=== PATIENT | male | born 1960 | race Caucasian/White ===

== ENCOUNTER → 2016-11-04 | Outpatient (CLI) | payer OTHER ==
[2016-11-04 09:22] LABS: Cholesterol 156 mg/dL (<200); HDL Cholesterol 54 mg/dL (40-60); Non-African American GFR(MDRD) >60 (>60 ml/min/1.73 sqM); Triglycerides 73 mg/dL (<150)
== END | disposition home or self-care (01) ==
LOC: LABWHC1 08:33
PROVIDERS: ATTEND Podiatrist Foot & Ankle Surgery
DX: M85.672 Other cyst of bone, left ankle and foot (principal); L03.90 Cellulitis, unspecified
CPT/HCPCS: 36415; 80061; 82565

== ENCOUNTER → 2016-11-14 | Outpatient (CLI) | payer OTHER ==
--- NOTE | 2016-11-17 12:53 | MR ---
MR left foot HISTORY: Cellulitis, fibrous dysplasia, abnormal x-ray Correlation to plain film dated 10/24/2016 from outside institution Multiplanar multisequence and postcontrast images obtained through the left foot following 16 cc Mult iHance IV Abnormality corresponds to cortical destruction at the first digit, there is associated increased sig nal on T2-weighted sequences throughout the distal phalanx of the first digit corresponding intermedi ate low signal in the T1-weighted images, uniform enhancement following contrast administration with the exception of a focal central low signal region which could represent small focal abscess or seque strum measuring 4 to 5 mm. IMPRESSION: Findings compatible with osteomyelitis distal first digit left foot as described.
== END | disposition home or self-care (01) ==
LOC: RADMRIMAIN 20:28
PROVIDERS: ATTEND Podiatrist Foot & Ankle Surgery
DX: L03.032 Cellulitis of left toe (principal); M85.01 Fibrous dysplasia (monostotic), shoulder; M85.672 Other cyst of bone, left ankle and foot
CPT/HCPCS: 73720; A9577

== ENCOUNTER 2017-12-19 20:37 | Emergency (ER) | payer OTHER ==
[2017-12-19 20:45] VITALS: BP 135/84; PULSE 84; RESP 18; TEMP 98.4
[2017-12-19] MEDS ORDERED: DIPH,PERTUS(ACELL)TETVAC-LF 0.5 ML VIAL IM ONE (20:48)
[2017-12-19] MEDS ORDERED: LIDOCAINE 1% INJ 10MG/ML (20 ML MDV) SQ ONE (21:16)
--- NOTE | 2017-12-19 21:32 | ED ---
General Adult HPI - General Chief complaint: Skin/Abscess/Foreign Body Stated complaint: Fishing hook in finger Time Seen by Provider: 12/19/17 20:55 Source: patient, RN notes reviewed Mode of arrival: ambulatory Limitations: no limitations - History of Present Illness Initial comments: This is a 56yo male with no PMH who presents today for CC of fish hook in left pinky finger. Pt states that he was helping a friend move when he was walking in the garage by his car dragging his hand along the side his left pinky finger was caught by a fishing hook that was on a pole hanging on car. Pt irrigated the wound, then immediately presented to the ER. He stated that his tetanus was not up to date. Pt denies decreased ROM, muscle weakness, numbness, tingling or parathesias of the left pinky finger, hand pain, previous MRSA infection or any other complaints. Patient denies any recent fever, chills, shortness of breath, chest pain, back pain, abdominal pain, nausea or vomiting, numbness or tingling , dysuria or hematuria, constipation or diarrhea, headaches or visual changes, or any other complaints. - Related Data Allergies Allergy/AdvReac Type Severity Reaction Status Date / Time codeine Allergy Unknown Verified 12/19/17 20:42 Penicillins Allergy Unknown Verified 12/19/17 20:42 Review of Systems ROS Statement: Those systems with pertinent positive or pertinent negative responses have been documented in the HPI. ROS Other: All systems not noted in ROS Statement are negative. Constitutional: Denies: fever, chills Eyes: Denies: eye pain ENT: Denies: ear pain Respiratory: Denies: cough, dyspnea Cardiovascular: Denies: chest pain, palpitations Endocrine: Denies: fatigue Gastrointestinal: Denies: abdominal pain, nausea, vomiting, diarrhea, constipation Genitourinary: Denies: urgency, dysuria, frequency Musculoskeletal: Denies: back pain Skin: Reports: as per HPI. Denies: rash Neurological: Denies: headache, weakness, numbness, paresthesias, confusion Past Medical History Past Medical History: No Reported History History of Any Multi-Drug Resistant Organisms: None Reported Past Surgical History: No Surgical Hx Reported Past Psychological History: No Psychological Hx Reported Smoking Status: Current every day smoker Past Alcohol Use History: None Reported Past Drug Use History: None Reported General Exam - General Exam Comments Initial Comments: General: The patient is awake and alert, in no distress, and does not appear acutely ill. Eye: Pupils are equal, round and reactive to light, extra-ocular movements are intact. No nystagmus. There is normal conjunctiva bilaterally. No signs of icterus. Ears, nose, mouth and throat: There are moist mucous membranes and no oral lesions. Neck: The neck is supple, there is no tenderness or JVD. Cardiovascular: There is a regular rate and rhythm. No murmur, rub or gallop is appreciated. Respiratory: Lungs are clear to auscultation, respirations are non-labored, breath sounds are equal. No wheezes, stridor, rales, or rhonchi. Musculoskeletal: Normal ROM, no tenderness of MCP, PIP and DIP joints of left pink finger with 5/5 strength with flexion and extension. Sensation intact of all 5 digits of the left hand. Pulses equal bilaterally 2+. Capillary refill < 2 seconds. Neurological: A&O x 3. CN II-XII intact, There are no obvious motor or sensory deficits. Coordination appears grossly intact. Speech is normal. Skin: Skin is warm and dry and no rashes. Red fish hook protruding from left pinky finger just distal to the PIP joint. Appears superficial in nature, can feel entire hook superfically beneath skin. Freya imbedded in skin. Psychiatric: Cooperative, appropriate mood & affect, normal judgment. Limitations: no limitations Course Vital Signs 12/19/17 20:42 Temperature 98.4 F Pulse Rate 84 Respiratory 18 Rate Blood Pressure 135/84 O2 Sat by Pulse 97 Oximetry Medical Decision Making - Medical Decision Making 56 male with no PMH who presents today for CC of fish hook in left pinky finger. Hook appeared superficial in the skin I was able to palpate along the entire length of the hook embedding into skin including the bard which was protruding but had hadnt piericed through skin. Pt was anethesized locally using 1% lidocaine around the fish hook/freya. Freya was pushed through without difficulty and cut with wire cutters. Hook was then pushed back through entrace. Wound was extensively irrigated and explored. XR of the left hand were obtained to check for any retain FB, returned (-). Given the superficial nature and (-) XR of the wound I have low suspicion for occult/open fracture and do not feel antibiotics are indicated at this time. Pt tetanus not UTD, pt was administered TDaP vaccination today. Bacitracin and bandage applied to wound. Case discussed prior to d/c with Dr. Mcdonald who agreed with impression and plan. Pt was educated on the signs and symptoms of infection and was told to return to ER if they arise. Pt d/c in stable condition. Disposition Clinical Impression: Fish hook injury of finger of left hand Disposition: HOME SELF-CARE Condition: Good Instructions: Puncture Wound (ED) Additional Instructions: Please use over the counter pain medication as needed, as discussed. Please follow-up with family doctor in the next 2 days for wound check. Please return to emergency room if the symptoms increase or worsen or for any other concerns. Is patient prescribed a controlled substance at d/c from ED?: No Referrals: Svetlana Montalvo MD [Primary Care Provider] - 1-2 days Time of Disposition: 21:50
--- NOTE | 2017-12-19 21:50 | XR ---
EXAMINATION TYPE: XR hand complete LT DATE OF EXAM: 12/19/2017 CLINICAL HISTORY: Left hand pain. Facial caught in the left fifth digit. TECHNIQUE: Frontal, lateral and oblique images of the left hand are obtained. COMPARISON: None. FINDINGS: There is no acute fracture/dislocation evident in the left hand. The joint spaces in the l eft hand appear within normal limits. The overlying soft tissue appears unremarkable. No radiopaque foreign body. Osseous mineralization is within normal limits. IMPRESSION: There is no acute fracture or dislocation in the left hand. No radiopaque foreign body.
== END 2017-12-19 21:58 | disposition home or self-care (01) ==
LOC: EC 20:37
DX: S60.457A Superficial foreign body of left little finger, initial encounter (principal); F17.200 Nicotine dependence, unspecified, uncomplicated; Z88.0 Allergy status to penicillin; Z88.5 Allergy status to narcotic agent; Z23 Encounter for immunization; W22.8XXA Striking against or struck by other objects, initial encounter; Y93.89 Activity, other specified
CPT/HCPCS: 99283 ×2; 90471 ×2; 73130; 90715; J2001

== ENCOUNTER 2021-10-28 10:49 | Emergency (ER) | payer OTHER ==
[2021-10-28 10:56] VITALS: TEMP 98
[2021-10-28] MEDS ORDERED: KETOROLAC 15 MG/ML 1 ML VIAL IM STA (11:21)
[2021-10-28 12:17] LABS: Potassium 4.9 mmol/L (3.5-5.1)
[2021-10-28 12:19] LABS: Calcium 9.5 mg/dL (8.4-10.2)
--- NOTE | 2021-10-28 13:10 | ED ---
Back Pain HPI - General Chief Complaint: Back Pain/Injury Stated Complaint: Weakness/left leg numbness/back pain Time Seen by Provider: 10/28/21 11:01 Source: patient, RN notes reviewed Limitations: no limitations - History of Present Illness Initial Comments: Patient is a pleasant 60-year-old male presents to the emergency room at the direction of his primary care provider with complaints of worsening chronic back pain. He reports that he injured his back back in April 2021 and since that time he had left lower extremity weakness and numbness along with slow muscle atrophy. Over the last month he has had an increase in radiculopathy down his right leg along with right-sided numbness. He denies any sudden numbness or tingling, bowel or bladder incontinence or any further trauma. He states that he is being worked up by Dr. Beavers outpatient with attempts to get a repeat MRI and computed tomography scan but is having difficulties with insurance. He is taking naproxen outpatient for pain control with suboptimal control. Prior to his back injury in April he denies any other past medical history, complaints or concerns. - Related Data Allergies Allergy/AdvReac Type Severity Reaction Status Date / Time codeine Allergy Unknown Verified 10/28/21 10:56 Penicillins Allergy Unknown Verified 10/28/21 10:56 Review of Systems ROS Statement: Those systems with pertinent positive or pertinent negative responses have been documented in the HPI. ROS Other: All systems not noted in ROS Statement are negative. Past Medical History Past Medical History: No Reported History History of Any Multi-Drug Resistant Organisms: None Reported Past Surgical History: No Surgical Hx Reported Past Psychological History: No Psychological Hx Reported Smoking Status: Current every day smoker Past Alcohol Use History: None Reported Past Drug Use History: Marijuana General Exam Limitations: no limitations General appearance: alert, in no apparent distress Head exam: Present: atraumatic, normocephalic, normal inspection Eye exam: Present: normal appearance, PERRL, EOMI. Absent: scleral icterus, conjunctival injection, periorbital swelling ENT exam: Present: normal exam (Before), mucous membranes moist Neck exam: Present: normal inspection. Absent: tenderness, meningismus, lymphadenopathy Respiratory exam: Present: normal lung sounds bilaterally. Absent: respiratory distress, wheezes, rales, rhonchi, stridor Cardiovascular Exam: Present: regular rate, normal rhythm, normal heart sounds. Absent: systolic murmur, diastolic murmur, rubs, gallop, clicks GI/Abdominal exam: Present: soft, normal bowel sounds. Absent: distended, tenderness, guarding, rebound, rigid Extremities exam: Absent: pedal edema, joint swelling Back exam: Present: tenderness, muscle spasm, paraspinal tenderness Neurological exam: Present: alert, oriented X3, CN II-XII intact, other (BLE weakness left worse right) Psychiatric exam: Present: normal affect, normal mood Skin exam: Present: warm, dry, intact, normal color. Absent: rash Course Vital Signs 10/28/21 10:52 Temperature 98.0 F Pulse Rate 63 Respiratory 20 Rate Blood Pressure 136/86 O2 Sat by Pulse 99 Oximetry Medical Decision Making - Medical Decision Making Pain improved with dose of IM Ketolac without side effects. Patient denies need for further pain medication. Computed tomography scan shows degenerative changes of the lumbar spine with multilevel degenerative disc disease, central spinal canal stenosis and neuroforaminal stenosis, most evident at L3 to L4 level. Outpatient surgical consult and MRI is recommended. He is alread established with an following with [facility]. - Lab Data Result diagrams: 10/28/21 11:34 Lab Results 10/28/21 Range/Units 11:34 Sodium 140 (137-145) mmol/L Potassium 4.9 (3.5-5.1) mmol/L Chloride 106 (98-107) mmol/L Carbon Dioxide 26 (22-30) mmol/L Anion Gap 8 mmol/L BUN 12 (9-20) mg/dL Creatinine 1.12 (0.66-1.25) mg/dL Est GFR (CKD-EPI)AfAm 84 (>60 ml/min/1.73 sqM) Est GFR (CKD-EPI)NonAf 72 (>60 ml/min/1.73 sqM) Glucose 102 H (74-99) mg/dL Calcium 9.5 (8.4-10.2) mg/dL - Radiology Data Radiology results: report reviewed, image reviewed Disposition Clinical Impression: Degeneration of intervertebral disc Disposition: HOME SELF-CARE Condition: Fair Instructions (If sedation given, give patient instructions): Acute Low Back Pain (ED), Degenerative Disc Disease (ED) Additional Instructions: Please return to the Emergency Department if symptoms worsen or any other concerns. Is patient prescribed a controlled substance at d/c from ED?: No Referrals: Svetlana Montalvo MD [Primary Care Provider] - 1-2 days Kelechi Beavers DO [Doctor of Osteopathic Medicine] - 1-2 days Time of Disposition: 14:32
--- NOTE | 2021-10-28 13:42 | CT ---
EXAMINATION TYPE: CT lumbar spine wo con DATE OF EXAM: 10/28/2021 1:11 PM COMPARISON: X-ray dated 08/09/2021 HISTORY: Chronic low back pain and bilateral leg weakness x6 months. CT DLP: 690.7 mGycm Automated exposure control for dose reduction was used. Technique: Unenhanced CT of the lumbar spine was performed. Bone and soft tissue window settings are submitted as well as coronal and sagittal reconstructions. FINDINGS: Chronic bilateral L5 pars interarticularis break with grade 1 anterolisthesis of L5 over S1. Mild lev oscoliosis of the lumbar spine with apex at L3 level. No definite acute vertebral body collapse or ac [place] displaced fracture. Degenerative changes of the lumbar spine with multilevel opposing endplate osteophytosis. Degenerated L3-4 disc. Subchondral sclerotic changes are seen at L3-4 level. T12-L1: Mild diffuse degenerative disc bulge without significant central spinal canal stenosis or ramesh roforaminal stenosis. L1-L2: Mild diffuse posterior disc bulge without significant central spinal canal stenosis or neurofo raminal stenosis. L2-L3: Diffuse posterior disc bulge with bilateral focal foraminal protrusions, larger on the right s mariia, causing no significant central spinal canal stenosis, mild left and moderate right neuroforamina l stenosis. L3-L4: Degenerated disc with vacuum phenomenon, diffuse posterior disc bulge with focal right prefora davin disc extrusion and caudal migration for about 18 mm, causing moderate central spinal canal sten osis and moderate to severe right neuroforaminal stenosis. Associated compression of the right L4 ner ve root in its lateral recess. L4-L5: Mild diffuse posterior disc bulge, without significant central spinal canal stenosis or neurof oraminal stenosis. L5-S1: Grade 1 anterolisthesis with diffuse posterior disc bulge, causing no significant central spin al canal stenosis and moderate to marked left neuroforaminal stenosis compressing the left L5 nerve r oot. Bilateral renal cysts, suboptimally assessed by this CT scan. Scattered arterial atherosclerotic calc ifications. Fecal loading of the visualized portion of the colon. No paraspinal lesion. IMPRESSION: Bilateral L5 pars break with grade 1 anterolisthesis of L5 over S1. Degenerative changes of the lumbar spine with multilevel DDD, central spinal canal stenosis and neuro foraminal stenosis, most evident at L3-4 level as detailed above. Recommend clinical correlation and spine surgery consultation. Further MRI assessment can be also considered. Other incidental findings as described above.
[2021-10-28 14:58] VITALS: BP 114/87; PULSE 57; RESP 14
== END 2021-10-28 14:58 | disposition home or self-care (01) ==
LOC: EC 10:49
DX: M51.36 Other intervertebral disc degeneration, lumbar region (principal); F17.200 Nicotine dependence, unspecified, uncomplicated; Z88.0 Allergy status to penicillin; Z88.5 Allergy status to narcotic agent
CPT/HCPCS: 36415; 80048; 72131; 96372; 99285; J1885

== ENCOUNTER → 2021-12-13 | Outpatient (CLI) | payer OTHER ==
--- NOTE | 2021-12-14 02:19 | MR ---
EXAMINATION TYPE: MR lumbar spine wo con DATE OF EXAM: 12/13/2021 COMPARISON: None HISTORY: Lower back pain, BLE radiculopathy. Multiplanar multiecho imaging of the lumbar spine with no contrast. There is a 2 mm anterior subluxation of L4 in relation L5. There is bilateral L5 spondylolysis. There is posterior disc herniation at L3-4 towards the right side. There is impingement on the lateral re cess. There is impingement on the right-sided neural foramen at L3-4 no compression fracture. No foca l bone destruction. There is no lumbar paraspinal mass. Sacroiliac joints are intact. No significant spinal stenosis. IMPRESSION: There is a moderate posterior right-sided L3-4 lumbar disc herniation with impingement on the neural foramen and lateral recess. No compression fracture. L5 spondylolysis. Moderate disc space narrowing at L3-4.
== END | disposition home or self-care (01) ==
LOC: RADMRIMAIN 18:52
PROVIDERS: ATTEND Orthopaedic Surgery
DX: M47.816 Spondylosis without myelopathy or radiculopathy, lumbar region (principal); M99.73 Connective tissue and disc stenosis of intervertebral foramina of lumbar region
CPT/HCPCS: 72148

== ENCOUNTER 2022-01-21 08:48 | Inpatient (IN) | payer OTHER ==
[2022-01-17 15:34] VITALS: BMI 22.6
--- NOTE | 2022-01-21 06:41 | P.HPOR ---
History of Present Illness H&P Date: 01/10/22 Chief Complaint: LE weakness, LBP [facility] History and Physical Date of :[birth year] Age: 60 year Height: 5'10" Weight: 165 lbs BMI: 23.67 kg/m2 Occupation: [employer] (currently off) VAS: 8 CHIEF COMPLAINT: Low back pain LE weakness Duration of current treatment regiment: >6 mo HISTORY : Xrays No new xrays taken in office Trauma or injury No Work-Related No Pain description aching, burning. Location posterior Activity Modification yes Hand Dominance right TREATMENTS COMPLETED: 6 weeks of PT completed? Month and Year of last PT date? -08/2021 Yes How many sessions? currently on his 2nd round >12 sessions Did it help? No, exacerbated his symptoms. Physician directed home exercise completed? Duration of HEP course: Daily for the last 3 months yes Patient has trialed the physician directed home exercise program for 3 months without relief of their symptoms. Medications yes List: Naproxen, Gabapentin both without relief. Patient is currently on ASA 81mg. Alternative interventions Chiropractic: No Massage therapy: No R.I.C.E: yes , daily ice without relief. Brace: yes, no help Injections No RFA: No SUBJECTIVE: Mr. Hoffman returns to the office for a pre-operative recheck of their low back pain. Patient reports no changes to his symptoms since the time of the last appointment, noting continued posterior thoracic and lumbar pain radiating into the left lower extremity. He describes the pain as a burning that becomes sharp with activity. In addition to the pain, the patient does also report numbness and tingling throughout the left lower extremity and buttock. overall his symptoms are made worse with any standing, bending, or twisting. Overall the patient has seen a progressive increase in symptoms since their onset. Due to this they notes that it is increasingly difficult for Mr. Hoffman to complete many of their daily tasks. Patient is having severe sleep disturbances as well due to their ongoing pain and associated symptoms. Regarding treatments, the patient has previously trialed Naproxen and Gabapentin both without any relief of his symptoms. Furthermore he has trialed physical therapy and home exercises as well both without any relief of his symptoms. Patient denies trialing any other modalities at this time. Otherwise the patient denies any f/c/sob/cp, no incision concerns, no bladder or bowel retention/incontinence, no perineal numbness/tingling, and ambulates with the use of a cane. HPI: Mr. Snow last presented on 12/20/2021 on follow up for his Lumbar spine and MRI which he was finally able to get. He is miserable. He states he is having a more difficulty time ambulating due to increased symptoms in his legs of weakness, difficulty with pushoff as well as increased numbness. It used to be just in his left leg but it is now in his right leg as well. He denies any bowel or bladder issues as of yet, and states no perineal numbness/tingling but he is getting numbness/tingling in his thighs now as well. He is using a cane for ambulation. His is very uncomfortable in the office and cannot sit for any period of time and cannot stand for any period of time due to the radicular pain in his leg, buttock and back. He is wearing a back brace, but this helps only minimally at this time. He has been done smoking for the past 4 weeks, no Nicoti ne at all which he is very proud of. Mr. Hoffman was last seen on 08/09/2021 regarding his lumbar spine. Patient reports pain ongoing for 3 months after slipping and falling on ice. Since this incident he has had increased symptoms that have progressively worsened in severity. Regarding his symptoms the patient reports posterior thoracic and lumbar pain radiating into the left lower extremity. He describes the pain as a burning that becomes sharp with activity. In addition to the pain, the patient does also report numbness and tingling throughout the left lower extremity and buttock. overall his symptoms are made worse with any standing, bending, or twisting. Due to this he has seen a significant loss in daily function and moderate sleep disturbances. As for treatments, the patient is currently going through his second round of PT which he has found no relief with. Additionally he has trialed a physician recommended home exercise program also without improvements. As for medications he reports taking Naproxen and gabapentin both without any discernable changes to his symptomology. Otherwise he denies any bladder or bowel retention/incontinence, no perineal numbness/tingling, and ambulates with the use of a cane. Today Mr. Hoffman presents to the office for a recheck of his low back and to review his CT scan obtained after the time of the last appointment. Since the time of the last appointment the patient reports that he has seen no improvements to his symptoms. Patient notes that his pain has continued to worsen and notes that his radicular pains are significantly impacting his ability to perform most ADL's. Of note the patient did recently present to the [facility] due to the severity of his pain. As for treatments the patient reports that he has seen no improvements to his symptoms and denies lasting relief from all modalities trialed thus far. Otherwise he denies any f/c/sob/cp, no bladder or bowel retention/incontinence, no perineal numbness/tingling, and ambulates independently. The patients' past social, medical, family, surgical history, as well as review of systems, have been reviewed. Please refer to the Neurosurgery History and Physical form that has been scanned in to our electronic medical record system. 16 points review of systems completed and as stated in HPI, all other systems reviewed are negative. Social History: Reviewed, see appropriate section of the chart for details. P3 Social History: Smoking: Former smoker quit 6 weeks prior P3 Smoking Amount: hx of 1/2 PPD Alcohol: none P3 Family History: Reviewed, see appropriate section of the chart for details. P2 Past Medical History: Reviewed, see appropriate section of the chart for details. [id number] Medications: Rx: aspirin 81 mg tablet,delayed release Ref: 0 Rx: atorvastatin 20 mg tablet Ref: 0 Rx: folic acid 1 mg tablet Ref: 0 Rx: gabapentin 300 mg capsule Ref: 0 Rx: naproxen 500 mg tablet Ref: 0 Rx: omeprazole 20 mg capsule,delayed release Ref: 0 PHYSICAL EXAMINATION:Exam repeated, changes noted below General: Awake, alert, appropriate for age, in no acute distress. HEENT: No unusual neck masses around region of lateral neck triangle, thyroid, supraclavicular groove Heart: Regular rate and rhythm, normal S1, S2 and no murmur/gallop. Lungs: Clear to auscultation bilaterally with no use of accessory muscles. Extremities: Skin warm and dry without acute lesions, coloration, temperature, skin intact, no tenderness or erythema Integument: Hairy patches: ABSENT Dorsal skin dimples: ABSENT Cafe au lait spots: ABSENT Surgical incisions: NONE Palpation: Please see Pain drawing on Intake sheet for further detail. Midline spinal tenderness: Yes, through lumbar region E6 Cervical Tenderness: No E6 Paralumbar tenderness: Yes E6 Parathoracic tenderness: No E6 Buttocks tenderness: No E6 Sacroiliac Tenderness: No POSTURAL and MUSCULO-SKELETAL EVALUATION: Coronal Balance: NEUTRAL Recumbent testing: Patient is able to lay flat on back Sagittal Balance: NEUTRAL Shoulder Profile: LEVEL Pelvic Girdle: LEVEL Neck ROM: UNRESTRICTED Lumbar ROM: RESTRICTED Shoulder ROM: Symmetrical Hip ROM: Symmetrical Knee ROM: Symmetrical Hands: Normal appearance, symmetrical Feet: Normal appearance, Symmetrical VASCULAR STATUS : LEFT RIGHT Wrist Pulses INTACT INTACT Pedal Pulses (Dors. pedis & post.tibialis) INTACT INTACT Color NORMAL NORMAL Edema Absent Absent NEUROLOGIC EXAMINATION: Mental Status:Awake and alert, fully oriented, with normal attention, concentration and memory, and fluent, appropriate speech. Cranial Nerves: I: Olfactory not tested. II: Visual acuity normal, no visual field deficit noted with confrontation. III,IV: Normal pupillary reflexes & intact extraocular movements without nystagmus. V,: Intact symmetrical facial sensation. VII: Intact symmetrical facial motor movement VIII: Hearing intact. IX,X: Intact gag, swallow, & normal voice. XI: Sternocleidomastoid, trapezius function intact. XII: Tongue midline with normal movements. L'hermitte's Sign: Negative / absent Spurling'Sign: Absent bilaterally. Cubital percussion test: Absent bilaterally. Mcnulty-Tinel sign - Carpal region: Absent bilaterally. Straight Leg Raising: Absent bilaterally. 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 Sensory system (0-4, N/T) Test type RU THU RL LL Joint-Position 2 2 2 2 Vibration 2 2 2 2 Pain & LT sense 2 2 2 2 Dermatomal Deficit: None None L3-4 L3-4, L5-S1 Gait and Functional Evaluation: Ambulatory aids: Cane Romberg's test: Intact bilaterally Toe heel walk / heel-toe walk intact while maintaining satisfactory balance? No Squatting/straightening w/o assistance to a min of 60 degree knee flexion? No Single leg stance:not intact on the left side Trendelenburg sign negative bilaterally Hand and finger dexterity intact bilaterally? yes Disdiadochokinesis examination negative bilaterally? yes RADIOGRAPHIC STUDIES: XRay taken on 08/09/21 of Lumbar Spine and pelvis This reviewed and demonstrates grade 1 spondylolisthesis L5-S1. This segment has mobility in flexion and extension of angular deformity. His fish mouthing at the L5-S1 disc space. There is facet arthrosis which is noted facet hypertrophy. There is foraminal stenosis related. There is disc height loss L3 4 L4 5 which is more moderate nature. There are sclerotic areas sclerotic endplate changes noted as well. Some coronal deformity centered around L4 5 and L5-S1 due to disc collapse. No acute fracture or dislocation noted no lesions noted AP pelvis demonstrates congruent level pelvis and fracture dislocation CT scan from the [facility] ER on10/28/2021 of LumbarSpine: This is reviewed and demonstrates b/l pars defects at L5 with Grade I spondylolisthesis related. There is scar formation around pars level along with elongation and facet arthrosis related this this. There is overlap of L4 IAP onto S1 SAP due to the deformity. There his disc height loss L5-S1 related with subchondral sclerosis. There is vacuum disc phenomenon at L3-L4. There is retr olisthesis of L4 on L5 although this is minor. There is stenosis bilateral foraminal as well as centrally related to the slip at L5-S1 MRI of Lumbar spine from 12/13/21: Images Reviewed in office with the patient. L1-2 Mild spondylotic changes, good disc height, no significant stenosis L2-3 Mild spondylotic changes, L3-4 Severe spondylosis with near complete disc collapse, Large HNP broad based with large paracentral portion out the left side causing severe central and left foraminal stenosis. There is also moderate right foraminal stenosis. Facet hypertrophy and ligamental hypertrophy also contribute to stenosis and spondylotic features. Boggy facets noted. L4-5 Moderate spondylosis noted with broad based disc bulge eccentric to right hand side causing moderate right foraminal stenosis. Mild central stenosis. Facet hypertrophy noted as well. L5-S1 Severe spondylosis with near complete disc collapse. There is b/l L5 pars defects causing mobile grade I spondylolisthesis of L5-S1 measuring 6 mm on this supine film which accentuates on F/E films to around 9-10 mm. Alignment: PI: NA LL: 44 deg Coronal alignment: Maintained Fracture: None Lesion: None IMPRESSION: It was my pleasure to have seen and examined Catalino. I reviewed the patient's clinical syndrome, physical findings, and imaging studies during the appointment today. It is my impression that the patient has a diagnosis of. 1. L5 spondylolysis with L5-S1 grade 1 spondylolisthesis 2. L3-4 XL HNP, with severe spondylosis and severe stenosis 3. b/l LE weakness, deteriorating 4. b/l LE radiculopathy with paresthesias, progressive .DX:Diagnosis: Spondylolysis, lumbar region : ICD10 = M43.06 / ICD9 = 738.4 / SNOMED = 28721007279543 .DX:Diagnosis: Lumbar spondylolisthesis : ICD10 = M43.16 / SNOMED = 849382542176108 .DX:Diagnosis: Intervertebral disc disorders w/ radiculopathy of lumbar region : ICD10 = M51.16 / ICD9 = 722.93 / SNOMED = 805629588622506 .DX:Diagnosis: Muscle weakness of lower extremity : ICD10 = G83.10 / ICD9 = 728.87 / SNOMED = 626737887 I outlined the natural course history without intervention and various intervent ional options. PLAN: Based on my findings I suggest the following course of action: Due to the nature of the patients progressive symptoms, neurological issues, weakness, radiculopathy and low back pain I am recommending surgical intervention in the form of the following: L3-S1 decompression and instrumented fusion Previously, We discussed different options for intervention including surgical and non surgical.And these were reiterated today. Due to the progressive nature of the patients symptoms I feel that surgery is the best option to alleviate his sx. He has two distinct problems that are both contributing to his current state. The severe stenosis, large HNP and severe spondylosis at L3-4, as well as the spondylosis with spondylolysis and stenosis at L4-S1. These would both be best addressed with decompression and fusion which would allow for complete neural decompression, realignment of the spine, buddhism of lordosis and disc height to allow for the best possible outcome for the patient. We discussed the risks and benefits as well as limitations of this at length and he is comfortable proceeding in this manner. -Cont with back brace -Limit BLT at this time, remain off work per PCP Follow- up: 2 weeks post-op -Review of surgical risks and benefits as well as an educational packet on the proposed surgical procedure. Risks: All surgical procedures come with inherent risks, including those related to positioning, anesthesia, intraoperative findings, and postoperative complications. It is important to understand that surgery does not come with any guarantee of a successful outcome as complications and adverse events are always possible. The patient was given a handout in office today discussing the surgical procedure and risks associated with the intervention, both of which were discussed with the patient. These risks include but are not limited to the following: ? Experiencing same, different or even worse symptoms in back, neck, arms, or legs compared to before surgery. ? Requiring further surgery or other forms of treatment presently or at some time in the future at same or other levels of the intended spine surgery. ? On an extreme but fortunately relatively rare basis severe complication such as blindness, stroke, heart attack, temporary and/or permanent nerve injury, paralysis, coma, or may occur, sometimes without known explanation. ? Surgical complications may include but are not limited to risk of infection, fluid accumulation in the surgical dissection site, including a seroma or hematoma, that requires additional surgery, wound drainage, bleeding, new numbness or weakness, vision changes/loss, spinal fluid leakage, non-healing and/or infected incision, headaches, difficulty or inability to swallow, hoarseness, hemopneumothorax, pneumothorax, impotence, retrograde ejaculation, vaginal dryness; injury to nerves, spinal cord, blood vessels, lymphatics or other vital organs (i.e., bowel injury, injury to the great vessels); hetero topic bone formation; complications related to the hardware such as screws, rods, cages including misplaced hardware, device failure, instrumentation at the wrong spine level, hardware fracture/breakage, or hardware loosening; vertebral failure of the spinal column above or below the newly placed hardware; retained surgical instrumentations or devices and the need for further surgery. ? Medical risks of the planned spine surgery include but are not limited to generalized Infections to the whole body or local areas outside of the surgical site (sepsis), heart attack, bleeding, anaphylaxis, meningitis, seizure, epilepsy, hearing loss, burn michael, laceration of the head or other areas of the body, bruising, hypersensitivity of the skin, bladder over distension; allergic reaction; shoulder injury related to positioning; fat, blood and air clots to other areas of the body like heart, lungs, brain; failure of internal organs such as lungs, kidneys, liver and excessive bleeding. If blood transfusions are necessary, note that transfusions may cause intolerance reactions such as anaphylaxis or other complex reactions. Despite best efforts, the results of spine surgery might not heal in terms of bone, soft tissues such as skin, fascia, ligaments, and joints. Additionally, in order to achieve best possible results, spine surgery may be carried out beyond the initially planned levels and involve decompression, fusion including insertion of hardware at levels other than the original intended area of surgical interest change some portions of the procedure in order to ensure the best possible outcomes. With spine surgery and spinal fusion, there are different off label uses of instrumentation (devices, implants and hardware) as well as biological substances (bone morphogenic proteins, demineralized bone matrix) as well as using extra bone from allograft sources (i.e. cadaver bone) or autograft (iliac crest bone, ribs, or the spine itself). The patient has been given information about these practices and their inherent risks and benefits. [facility] Physician Assistants are medically trained surgical providers who function in the outpatient, inpatient, and operating room setting under the direct supervision of the attending surgeon.They assist in the operating room with direct supervision of the attending surgeons. The patient has had a chance to review all the listed information, has been given print outs detailing this information, and has had all his/her questions answered to their satisfaction. It was my pleasure to have seen and examined Mr. Hoffman. In our visit today we have had a chance to go over my understanding of our patient's current condition, the natural course history without intervention and various interventional options. Questions were invited and answered, and the patient wishes to proceed as outlined above. I have seen and examined the patient for 25 minutes and we have spent more than 50% of the time in repeat and detailed counseling about the patient's condition, its natural course history with out and as much as can be predicted with surgery and re-review of various surgical treatment options. In conclusion,Mr. Hoffman and his spouse/partner requested we proceed with the above suggested surgery and are willing to accept risks and limitations of the suggested surgery as nature of the disease process and our best attempts at treatment for the condition. Thank you again for allowing us to be part of your patient's care. Please don't hesitate to contact me if you have any further questions. Signed and authenticated by: Kele[facility] [address] [place] [id number] Past Medical History Past Medical History: GERD/Reflux, Osteoarthritis (OA) Additional Past Medical History / Comment(s): "disk exploded on MRI", History of Any Multi-Drug Resistant Organisms: None Reported Past Surgical History: No Surgical Hx Reported Additional Past Surgical History / Comment(s): colonoscopy Past Anesthesia/Blood Transfusion Reactions: No Reported Reaction Smoking Status: Former smoker - Past Family History Brother(s) Family Medical History: Cancer Medications and Allergies Home Medications Medication Instructions Recorded Confirmed Type Aspirin [Adult Low Dose Aspirin EC] 81 mg PO DAILY 01/17/22 01/17/22 History Fluticasone Propionate 1 puff INHALATION BID PRN 01/17/22 01/17/22 History [Fluticasone Propionate Hfa 220 MCG (Inhaler)] Folic Acid 1 mg PO DAILY 01/17/22 01/17/22 History Gabapentin [Neurontin] 300 mg PO TID 01/17/22 01/17/22 History Naproxen [Naprosyn] 500 mg PO BID 01/17/22 01/17/22 History Omeprazole [PriLOSEC] 20 mg PO AC-BRKFST 01/17/22 01/17/22 History Allergies Allergy/AdvReac Type Severity Reaction Status Date / Time codeine Allergy Nausea & Verified 01/17/22 15:22 Vomiting Penicillins Allergy Unknown Verified 01/17/22 15:22 Childhood Physical Examination Osteopathic Statement: *. No significant issues noted on an osteopathic structural exam other than those noted in the History and Physical/Consult.
[~2022-01-21 08:48] MED LIST: ACETAMINOPHEN TAB 500 MG TAB PO PRN; GABAPENTIN 300 MG CAP PO PRN; MIDAZOLAM 2 MG/2 ML VIAL IV PRN; ONDANSETRON 4 MG/2 ML VIAL IVP PRN; TRANEXAMIC ACID IN NACL,ISO-OS 1,000 MG in SALINE 1 100ML.BAG IVPB PRN; fentaNYL (PF) 50 MCG/ML 2 ML AMP IV PRN
[2022-01-21] MEDS: LACTATED RINGERS 1,000 ML IV SCH (09:32)
--- NOTE | 2022-01-21 10:52 | P.PN ---
Progress Note - Text Progress Note Date: 01/21/22 History and Physical UPDATE I have seen and examined the patient and reviewed the history and physical. There appear to be no significant changes in the patient's current medical status as outlined in the current History and Physical.
[2022-01-21] MEDS ORDERED: SUCCINYLCHOLINE CHLORIDE 200 MG/10 ML VIAL IV ONE (11:38)
[2022-01-21] MEDS ORDERED: GLYCOPYRROLATE 0.2 MG/ML 2 ML VIAL ONE (11:38)
[2022-01-21] MEDS ORDERED: PROPOFOL 10 MG/ML 20 ML VIAL IV ONE (11:38)
[2022-01-21] MEDS ORDERED: ePHEDrine 50 MG/ML 1 ML VIAL ONE (11:38)
[2022-01-21] MEDS ORDERED: TRANEXAMIC ACID IN NACL,ISO-OS 1,000 MG/100 ML BAG ONE (11:38)
[2022-01-21] MEDS ORDERED: ONDANSETRON 4 MG/2 ML VIAL ONE (11:38)
[2022-01-21] MEDS ORDERED: PHENYLEPHRINE-0.9% NACL SYG 1,000 MCG/10 ML SYRINGE ONE (11:38)
[2022-01-21] MEDS ORDERED: ceFAZolin 1,000 MG VIAL ONE (11:38)
[2022-01-21] MEDS ORDERED: HYDROmorphone (PF) 1 MG/ML ONE (11:38)
[2022-01-21] MEDS ORDERED: ROCURONIUM 10 MG/ML (5 ML VIAL) IV ONE (11:38)
[2022-01-21] MEDS ORDERED: LIDOCAINE 2% INJ 20 MG/ML (2 ML VIAL) ONE (11:38)
[2022-01-21] MEDS ORDERED: NEOSTIGMINE 1 MG/ML 10 ML VIAL ONE (11:38)
[2022-01-21] MEDS ORDERED: fentaNYL (PF) 50 MCG/ML 2 ML AMP ONE (11:38)
[2022-01-21] MEDS ORDERED: LACTATED RINGERS 1,000 ML IV ONE ×5 (11:50→16:00)
[2022-01-21] MEDS ORDERED: VANCOMYCIN 1,000 MG VIAL MISCELLANE ONE (11:50)
[2022-01-21] MEDS ORDERED: THROMBIN (BOVINE) 5,000 UNIT VIAL TOPICAL ONE (11:50)
[2022-01-21] MEDS ORDERED: GELATIN SPONGE,ABSORB (LARGE) 1 EACH SPONGE TOPICAL ONE (11:50)
[2022-01-21] MEDS ORDERED: BUPIVACAIN-EPI 0.25%-1:200,000 30 ML VIAL SQ ONE (11:50)
[2022-01-21] MEDS ORDERED: ceFAZolin 3,000 MG in SODIUM CHLORIDE 0.9% IRRIGATIO 3,000 ML IRRIGATION ONE (12:42)
[2022-01-21] MEDS ORDERED: HYDROmorphone 1 MG/ML 1 ML SYRINGE IVP PRN (17:39)
[2022-01-21] MEDS ORDERED: NA PHOS,M-B/NA PHOS,DI-BA 133 ML ENEMA RECTAL PRN (17:39)
[2022-01-21] MEDS ORDERED: ONDANSETRON 4 MG/2 ML VIAL IVP PRN (17:39)
[2022-01-21] MEDS ORDERED: SENNOSIDES-DOCUSATE SODIUM 1 EACH TAB PO PRN (17:39)
[2022-01-21] MEDS ORDERED: HYDROmorphone 0.5 MG/0.5 ML SYRINGE IVP PRN (17:39)
[2022-01-21] MEDS ORDERED: bisacodyL 10 MG SUPP RECTAL PRN (17:39)
[2022-01-21] MEDS ORDERED: MAGNESIUM HYDROXIDE 2,400 MG/10 ML CUP PO PRN (17:39)
--- NOTE | 2022-01-21 19:11 | FL ---
Intraoperative/procedural fluoroscopic services were provided. Total fluoroscopy time is 59 seconds w ith a total of 6 submitted images to PACS. Please see the operative/procedural note for further detai ls.
[2022-01-21] MEDS ORDERED: ONDANSETRON 4 MG/2 ML VIAL IVP ONE (20:15)
[2022-01-21] MEDS: CYCLOBENZAPRINE 5 MG TAB PO SCH (20:50)
[2022-01-21] MEDS: GABAPENTIN 300 MG CAP PO SCH (20:50)
[2022-01-21] MEDS: ACETAMINOPHEN TAB 500 MG TAB PO SCH (23:28)
[2022-01-22] MEDS: LACTATED RINGERS 1,000 ML IV SCH (00:07)
[2022-01-22] MEDS: ACETAMINOPHEN TAB 500 MG TAB PO SCH ×4 (05:21→22:59)
[2022-01-22] MEDS: CYCLOBENZAPRINE 5 MG TAB PO SCH ×2 (08:00→21:15)
[2022-01-22] MEDS: GABAPENTIN 300 MG CAP PO SCH ×3 (08:00→21:15)
--- NOTE | 2022-01-22 08:46 | CT ---
EXAMINATION TYPE: CT lumbar spine wo con DATE OF EXAM: 01/22/2022 COMPARISON: 10/28/2021 HISTORY: s/p lumbar fusion CT DLP: 762.9 mGycm CONTRAST: TECHNIQUE: CT of the lumbar spine is performed on a spiral scan at 3 mm thick sections. Reconstructed images are performed in the coronal and sagittal planes. FINDINGS: There is been interval placement of L3-S1 pedicle screws. Disc spacer present L3-4 L4-5 and L5-S1. Scoliosis is present with the convexity to the left. Vertebral body alignment in sagittal almas ne appears normal. Note is made of a inferior pole right renal cyst. T12-L1: No focal disc herniation or significant disc bulge is evident. No spinal canal stenosis or neural foraminal stenosis is present. L1-L2: There is minimal disc bulging with intrathecal sac flattening. No AP spinal canal stenosis. L2-L3: Mild Broad-based disc bulge is present. No spinal canal stenosis. L3-4 through L5-S1. Beam hardening artifact causes limitation. Laminectomies been performed. Postsurg ical subcutaneous air is present. No obvious stenosis is evident. Drainage catheter is present. Prior L5 spondylolysis is not identified. IMPRESSION: 1. Postsurgical fixation L3-S1 with disc spacers present with postsurgical changes are present. 2. Mild disc bulging present at all 1 2 and L2-3 without stenosis.
--- NOTE | 2022-01-22 08:59 | P.PN ---
Subjective Progress Note Date: 01/22/22 Principal diagnosis: Lumbar spondylosis with stenosis Patient seen and examined at bedside. Patient is resting in bed and tolerating breakfast. Patient states his pain is managed on current regimen. He is looking forward to working with physical therapy and getting up into the chair today. Nascimento catheter may be discontinued this morning. He denies any numbness tingling to bilateral lower extremities. Surgical dressing is clean dry and intact, Hemovac present and patent. Patient denies any fevers/chills, nausea/vomiting, or chest pain. Objective - Vital Signs Vital signs: Vital Signs Temp 99.2 F 01/22/22 03:54 Pulse 82 01/22/22 03:54 Resp 16 01/22/22 03:54 BP 113/67 01/22/22 03:54 Pulse Ox 96 01/22/22 03:54 FiO2 Intake & Output 01/21/22 01/22/22 01/22/22 18:59 06:59 18:59 Intake Total 2651 500 Output Total 1250 2670 Balance 1401 -2170 Weight 70.9 kg Intake: IV 2651 500 Output: Drainage 400 Lower Back 400 Urine 700 2200 Uretheral (Nascimento) 2000 Estimated Blood Loss 550 70 Other: Voiding Method Indwelling Catheter Indwelling Catheter - Exam Physical Examination General: The patient is awake and alert, in no acute distress Skin: Skin is warm and dry with no obvious rashes or lesions. Hairy patches absent, no dorsal skin dimples, no cafe au lait spots. Surgical incision to the lumbar region. Dressing is clean dry and intact. Hemovac drain present and patent. Eye: Pupils are equal, round and reactive to light, extra-ocular movements are intact; there is normal conjunctiva bilaterally. Neck: The neck is supple, there is no tenderness and ROM intact. Cardiovascular: There is a regular rate and rhythm. No murmur, rub or gallop is appreciated. Respiratory: Lungs are clear to auscultation, respirations are non-labored, breath sounds are equal. Gastrointestinal: Soft, non-distended, non-tender abdomen . Back: There is no tenderness to palpation in the midline, paralumbar, parathoracic or buttocks region. There is no obvious deformity . Musculoskeletal: ROM limited secondary to pain and stiffness from surgical procedure. Shoulder abduction 5/5, elbow flexors 5/5, wrist dorsiflexors 5/5. finger abductor 5/5, boarding room fixer 5/5, hip flexor 4/5, knee flexor 4/5, ankle dorsiflexor 4/5, ankle plantarflexion 4/5 and extensor hallucis 4/5. Neurological: CN 2-12 intact. There are no obvious motor or sensory deficits. Movement and coordination equal and intact. Sensory exam to light touch intact C5-T1 and intact from L2-S1. Reflexes 2/4 in bilateral upper and lower extremities. Negative Hoffmans, babinski, and clonus signs. Psychiatric: Cooperative, appropriate mood & affect, normal judgment. Assessment and Plan Assessment: Postop day 1 L3 S1 decompression with posterior lateral and interbody fusion Plan: Plan: -Appreciate independent beauty consultant and team management. -Activity: Ambulate QID, OOB all meals, up and about, limit lifting bending twisting to less than 5 lbs. Use walker or cane if needed for stability. -Daily PT/OT, increase ambulation strength and balance. -Brace when up and about, not needed in bed or chair -Pain control: Adequate at this time -Meds: reviewed -GI ppx: senna, Miralax -DC nascimento when up and about, bedside commode if needed -DVT PPX: OK to restart Heparin tonight -Hygiene: Shower today. Maintain dressing clean and dry. Meticulous cleaning after BMs away from the incision site -Drains: Maintain for now. DC later today pending out put and PT -Encourage IS 10x/hr -Dispo: Anticipate discharge home within 2448 hours with homecare *I reviewed and discussed this case with my attending Dr. Beavers, whom has reviewed this chart and films and is in agreement with assessment and plan of care as outlined above. I have personally seen and examined the patient, performed the documentation and the assessment and plan as written. Number of minutes spent on the visit: 20m.
[2022-01-22 11:13] LABS: African American GFR (CKD) 86.6 (60.0-200.0); Anion Gap 8.9 mmol/L (10.00-18.00); BUN/Creat Ratio 10.46 Ratio (12.00-20.00); Basophils # (A) 0.02 X 10*3/uL (0.00-0.10); Basophils % (A) 0.1 %; Blood Urea Nitrogen 11.3 mg/dL (9.0-27.0); Calcium 9.1 mg/dL (8.7-10.3); Carbon Dioxide 24.5 mmol/L (20.0-27.5); Eosinophils # (A) 0.12 X 10*3/uL (0.04-0.35); Eosinophils % (A) 0.8 %; HCT 30.7 % (39.6-50.0); HGB 10.5 g/dL (13.0-17.0); Immature Grans, Automated 0.6 %; Lymphocytes # (A) 1.26 X 10*3/uL (0.90-5.00); Lymphocytes % (A) 8.2 %; MCH 32.3 pg (27.0-32.0); MCHC 34.2 g/dL (32.0-37.0); MCV 94.5 fL (80.0-97.0); Monocytes # (A) 1.08 X 10*3/uL (0.20-1.00); NRBC Per 100 WBC 0 /100 WBCS (0.0-0.0); Neutrophils # (A) 12.81 X 10*3/uL (1.80-7.70); Neutrophils % (A) 83.3 %; Non-African American GFR(CKD) 74.7 (60.0-200.0); Platelet Count 318 X 10*3/uL (140-440); Potassium 3.9 mmol/L (3.5-5.5); RBC 3.25 X 10*6/uL (4.40-5.60); RDW 13.9 % (11.5-14.5); WBC 15.38 X 10*3/uL (4.50-10.00)
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
--- NOTE | 2022-01-22 12:16 | P.OP ---
Date of Procedure: 01/21/22 Preoperative Diagnosis: 1. L3-S1 spondylosis severe, with severe stenosis 2. Neurogenic clauidcation 3. LE weakness 4. LE paresthesias. Postoperative Diagnosis: 1. L3-S1 spondylosis severe, with severe stenosis 2. Neurogenic clauidcation 3. LE weakness 4. LE paresthesias. Procedure(s) Performed: Posteior midline approach to lumbar spine 1. L3-4 posteriolateral and interbody fusion (59064) 2. L4-5 posteriolateral and interbody fusion (68444) 3. L5-S1 posteriolateral and interbody fusion (85123) 4. L3-4, L4-5 and L5-S1 extradural decompression with bilateral laminectomy, complete facetectomy and foraminotomy for decompression of nural elements due to severe stenosis and deformity. (59149, [id number]) 5. Intradiscal osteotomy L3-4 and L5-S1 for deformity correction (3 column osteotomy) (95583) 6. Segmental instrumentation L3-S1 (88942) 7. Insertion of biomechanical devices L3-4, L4-5 and L5-S1 ([id number]) 8. Use of Simplee Navigation for screw placement (50044) 9. Use of intraoperative neuromonitoring 10. Interpretation of intraoperative flouroscopic images <1 hr (26400) Implants: -Narayan everest screw and jamie system -x 2 crosslinks -Globus Sable Cages 8 deg lordotic 10mm x 6-12 (x1) and 7-16 (x2) -Local Autograft -Allograft -Bio4 Anesthesia: GETA Surgeon: Kelechi Beavers Production Crew Supervisor #1: Hoang Jaquez (Was present and assisted in all aspects of the case from positioning, dissection, hardware placement, grafting, closure and dressing placement) Estimated Blood Loss (ml): 550 IV fluids (ml): 3,500 Urine output (ml): 400 Pathology: none sent Condition: stable Disposition: PACU Indications for Procedure: 61 yo male presented to [facility] with c/o LE weakness that has been progressive over the past few months and has gotten worse over the past few weeks. He states back pain as well as LE paresthesias and radiculopathy. Additionally, he cannot walk further than about 50 feet without having severe symptoms. He had a CT which showed a large disc herniation as well as pars defect at L3-4 and L5-S1 respectively. He has progressively gotten worse and has tried PT, HEP, RX and OTC meds as well as injections in the past and none have helped his sx. Since they are getting worse he has elected for surgical treatment. We discussed at length risks and benefits as outlined in risk review. He is ready and willing to proceed with surgery. Description of Procedure: The patient was seen and examined in the preoperative area. All preoperative protocols were followed. Informed consent was obtained risks and benefits of the procedure were discussed at length. Risks including bleeding infection damage to the surrounding tissue and risk of reoperation were discussed with the patient. Risk of anesthesia up to and including was a discussed with the patient. These are outlined in the risk review. They were willing to accept these risks and all of the risks of surgery. The patient was given a weight- based dose of antibiotics in the form of 2 g Ancef along with opening and closing grams of TXA. The patient was seen and evaluated by the anesthesia team who deemed them fit for surgery. The site was marked, the patient was willing to proceed with the procedure. The patient was transferred to the operative suite by the Department of anesthesia. They were then drifted off to sleep by the department anesthesia and GETA was performed. The patient tolerated this well. [Pineda catheter was placed by nursing staff, atraumatically]. Once confirmation of lines and ventilation the patient was transferred to a [prone Galindo table very carefully]. All bony prominences including wrists, elbows, axilla, chest, hips, and thighs, and feet were padded very well. Special attention was paid to the genitalia and these were padded accordingly. SCDs were placed on bilateral lower extremities and were connected. Arms were well padded and placed [on arm boards up and out in the 90/90 position]. Once in position, again we confirmed good ventilation capabilities and that lines were running appropriately. The patient's lumbar spine was then exposed. 1010s were placed outlining the incision site. Standard alcohol was used to clean the incision site and allowed to dry. C-arm was used to biomark the patient and confirm level for incision which was marked with a skin marker. Operative briefing was performed with all teams and everyone in agreement to proceed. The patient was then prepped and draped in a normal sterile fashion. Timeout was then performed and all parties were in agreement with the procedure to be performed. Midline skin incision was made over the previously bio marked area and dissection taken down into the lumbar fascia was identifiedthis was then cleaned with a Mallory. Midline fasciotomy was performed and subperiosteal dissection was taken down over the L2 lamina through S1. This allowed us to identify the L3 through L4 region. [place] 4 was placed at the pars of L3 and a lateral fluoroscopic image confirmed our levels for surgery. We then dissected out over the transverse processes at each level and decorticated these transverse processes well here. He then placed a spine mask for the [place] navigation and the area and registered a 3-D intraoperative C-arm spin. Once this pin was complete we confirmed the accuracy with a pointer and it was accurate. We then proceeded with placing screws with [place] navigation at L3 through S1 using Simplee 3-D navigation a navigated bur was used to make a private pilot hole followed by a navigated all tapped followed by a navigated screw which was measured at the point of all tapped. This is repeated at each level. Once we completed screw placement AP and lateral and fluoroscopic imaging were taken and confirmed placement of the screws. All screws were then tested using neuro monitoring and all tested above 20 mA. We then thoroughly irrigated the wound. Retractors then replaced and we proceeded with decompression. Starting at L5-S1 who performed bilateral laminectomy complete facetectomy and foraminotomy using high-speed bur and Kerrison rongeur. The deformity in this area was listhesis anteriorly due to the patient's defect in his pars there is exuberant scar tissue over the pars of L5 and this caused a floating lamina which allowed for removal of this area. Once we removed from this area we then carefully mobilized the dura and the exiting nerve roots using [place] 4 meticulous hemostasis was performed. We then performed intradiscal osteotomy 3 column osteotomy using a Raptor osteotome using lateral fluoroscopic guidance this was passed into the anterior third of the vertebral body through the disc space both cranially and caudally to aid in deformity reduction. This loosened the disc space completely and we performed complete discectomy here. Sequential shaving was performed to remove further disc material and to ensure bare endplates for acceptance of bone graft. Down-biting curet was used to clean across midline and into the opposite side. We then passed Raptor across midline into the anterior one third of the vertebral body as well to aid in osteotomy as well as deformity correction. Once this was completed we had good bleeding endplates we then placed bone graft anterior within the disc space a combination of Silvia Allograft and Autograft we then sized and placed a Globus Sable Cage. Dura and nerve roots were protected the cage was impacted under lateral image guidance. We then expanded the cage to meet the endplates. This allowed for good height jewish, reduction of listhesis and decompression. The cage was stable. We then backfilled the cage with DBM mix with autograft. The quail farmer was removed the cage was inspected and it was stable. We then performed meticulous hemostasis. We then turned our attention to L4-5. Bilateral laminectomy, complete bilateral facetectomy and foraminotomy were performed for decompression due to stenosis. This allowed for access to the disc space. The nerve roots and dura were mobilized and the disc was identified. Hemostasis was achieved. The Raptor osteotome was passed into the disc space and sequential shaving performed until bare endplates were achieved. We used downbiting curette to scrape endplates across midline with image guidance and ensure complete discectomy. We then irrigated the disc space and placed Silvia allograft and auotgraft anterior in the disc space. We then sized and placed a Globus Sable Cage while protecting neural elements the cage was impacted into place using lateral image. Once in position it was expanded to meet the endplaplates. This allowed for good height maintinance, lordosis and decompression. We then backfilled the cage with DBM and autograft mix. Construction Quality Control Manager was removed cage was tested and was stable. We then performed hemostasis. Attention was then drawn to L3-4 where bilateral laminectomy b/l complete facetectomy and foraminotomy were performed for deformity correction as well as decompression. We then mobilized neural elements b/l and protected nerve roots. We then performed intradiscal osteotomy, 3 column osteotomy, for deformity correction and due to the severe collapse in this area. The Raptor was then passed into the anterior 1/3 of the vertebral body to mobilize and decompress. Complete discectomy was performed and the bony fragments removed. We then sequentially shaved the space until the desired height was reached and endplates were bare. We then sized for a Sable cage. Protecting neural elements, we placed graft anterior to the cage in the space. The cage was then impacted into place under lateral imaging and expanded to meet the endplates. This allowed for good reduction of height, jewish of alignment and decompression. The cage was then backfilled with DBM and autograft. Construction Quality Control Manager removed and cage tested and was stable. We then irrigated and performed hemostasis. We then selected rods appropriately. The rods were then seated in S1 and set screws placed. We then sequentially reduced the rods into L4 and L5 to complete the reduction of L5. This reduced well on lateral image. We then placed all set screws and final tightened them. We then selected and placed two crosslinks and final tightened them. The wound was then copiously irrigated with 3L abx saline followed by 6 L of NSS. Hemostasis was achieved. We then placed surgicel over the dura. We placed a mixture of Autograft, DBP and Allograft in the posteiolaeral gutters b/l and packed it intoplace and covered with surgicel. Final images were taken confirming good placemend of hardware, good reduction and decompression. 2 g vancomycin powder was placed into the wound. A deep drain was placed and layered closure ensued. #1 PDS was placed in the facia followed by 0 Vicryl. subcu was then closed with 0 Vicryl and 2-0 Vicryl skin was then closed with skin bassam as approximated very well he drain was sewn into position with a 0 PDS. It was then connected. The wound was then cleaned and dressed sterilely with an operative foam dressing 4 x 4 and Tegaderm. The patient was transferred back to their hospital bed atraumatically. Drain continued to hold suction and were in good position. Patient was then awakened and extubated by the department of anesthesia having tolerated the procedure very well with no complications. They were transferred to the postoperative care unit in stable condition.
[2022-01-23] MEDS: ACETAMINOPHEN TAB 500 MG TAB PO SCH ×4 (07:07→23:57)
[2022-01-23] MEDS: LACTATED RINGERS 1,000 ML IV SCH (07:07)
[2022-01-23] MEDS: GABAPENTIN 300 MG CAP PO SCH ×3 (08:05→21:38)
[2022-01-23] MEDS: CYCLOBENZAPRINE 5 MG TAB PO SCH ×2 (08:05→21:38)
[2022-01-23 11:11] LABS: Basophils # (A) 0.03 X 10*3/uL (0.00-0.10); Basophils % (A) 0.2 %; Eosinophils # (A) 0.16 X 10*3/uL (0.04-0.35); HGB 10.3 g/dL (13.0-17.0); Immature Grans, Automated 0.5 %; Lymphocytes # (A) 0.81 X 10*3/uL (0.90-5.00); Lymphocytes % (A) 4.9 %; MCHC 33.2 g/dL (32.0-37.0); MCV 96.3 fL (80.0-97.0); Mean Platelet Volume 9.5 fL (9.5-12.2); Monocytes # (A) 1.48 X 10*3/uL (0.20-1.00); NRBC Per 100 WBC 0 /100 WBCS (0.0-0.0); Neutrophils # (A) 13.89 X 10*3/uL (1.80-7.70); Neutrophils % (A) 84.4 %; Platelet Count 306 X 10*3/uL (140-440); RBC 3.22 X 10*6/uL (4.40-5.60); RDW 13.9 % (11.5-14.5); WBC 16.45 X 10*3/uL (4.50-10.00)
--- NOTE | 2022-01-23 11:47 | P.PN ---
Subjective Progress Note Date: 01/23/22 Principal diagnosis: Status post L3-S1 decompression with posterior lateral interbody fusion Patient was evaluated today at bedside, he is resting comfortably. Patient is very eager to be discharged home, he feels is doing very well. His drain continues to put out a large amount of bloody serous fingers drainage. Patient has been urinating with no difficulty. He is passing gas, he denies a bowel movement at this time. Currently has no headaches, lightheadedness, chest pain or shortness of breath Objective - Vital Signs Vital signs: Vital Signs Temp 98.4 F 01/23/22 01:46 Pulse 100 01/23/22 01:46 Resp 18 01/23/22 01:46 BP 108/68 01/23/22 01:46 Pulse Ox 95 01/23/22 01:46 FiO2 Intake & Output 01/22/22 01/23/22 01/23/22 18:59 06:59 18:59 Output Total 2125 110 Balance -2125 -110 Output: Drainage 275 110 Lower Back 275 110 Urine 1850 Other: Voiding Method Indwelling Catheter Toilet - Exam Gen: AOx3, NAD VSS stable at this time Integument: Dressing of the incision remains intact with no obvious drainage. Drainage is noted on the bandage is surrounding the drain site, moderate amount of serosanguineous drainage and drain Palpation: Mild tenderness to palpation in the midline paraspinal region of the lumbar spine ROM: Full range of motion in all major muscle groups of the bilateral upper and lower extremities, no obvious focal deficits appreciated Sensory Exam: Senory exam to light touch is intact C5-T1 Senosry exam to light touch is intact L2-S1 Motor: 4+/5 strength appreciated in the bilateral lower extremities with hip flexion, knee extension, knee flexion, plantar flexion, dorsiflexion, EHL, FHL Reflexes: 2/4 in all UE and LE Negative Sumit's bilaterally Negative Babinski bilaterally Negative clonus bilaterally - Labs CBC & Chem 7: 01/23/22 06:50 01/22/22 06:01 Labs: Abnormal Lab Results - Last 24 Hours (Table) 01/23/22 Range/Units 06:50 WBC 16.45 H (4.50-10.00) X 10*3/uL RBC 3.22 L (4.40-5.60) X 10*6/uL Hgb 10.3 L (13.0-17.0) g/dL Hct 31.0 L (39.6-50.0) % Immature Gran # 0.08 H (0.00-0.04) X 10*3/uL Neutrophils # 13.89 H (1.80-7.70) X 10*3/uL Lymphocytes # 0.81 L (0.90-5.00) X 10*3/uL Monocytes # 1.48 H (0.20-1.00) X 10*3/uL Assessment and Plan Assessment: Postoperative day #2 status post L3-S1 decompression with posterior lateral interbody fusion Leukocytosis Other medical comorbidities Plan: Pain control, continue with the oxycodone 5 mg as needed along with Tylenol 1000 mg every 6 hours. He'll also continue with Flexeril as needed along with the scheduled gabapentin DVT prophylaxis, SCDs and DANA hose Wound care, plan for dressing change prior to discharge. We will leave the drain in place for another 24 hours due to high output, hopeful removal and 01/24/2022 Continue with PT/OT LSO brace has been delivered, utilize when up and ambulating Encourage incentive spirometer Other medical specialty recommendation Discharge planning: Hopeful discharge home on 01/24/2022 Time with Patient: Less than 30
--- NOTE | 2022-01-23 19:53 | P.PN ---
Subjective This is a pleasant 61 yo male with past medical history of GERD and Osteoarthritis Was admitted for the management of his back pain , radiating to her legs with weakness Patient underwent lumbar 3-sacral 1 decompression surgery with posterior lateral and interbody fusion with nerve integrity monitoring. Today is postop day #1. Patient fully awake and oriented, he has some dry mouth but able to eat and drink, he denies chest pain or dyspnea, no abdominal pain or nausea vomiting. No diarrhea. No fever. He was able to walk in the room sit in the chair this morning also he told me he ate his breakfast with no difficulty. Vitas looks stable and patient is afebrile No labs from today. As per records: Patient is supposed to having back surgery with Dr. Beavers on 01/21/2022 2 L3-S1 posterior lateral and interbody fusion. Patient already referred to cardiology for systolic murmur and EKG changes. Color Corrector already evaluated the patient and found patient to have average risk to undergo surgical intervention. on reviewing documents documents, patient had a Lexiscan stress test on 01/17/2022 revealing ejection fraction more than 55% with no reversible ischemia 01/23/2022 Patient sitting comfortable in bed and chair, he is doing well, he states that his leg weakness and numbness have resolved significantly and he is very happy about it he feels much better, he thinks he can go home today however he still have large discharge from his drain at the surgical site, Vitals are stable. He still has leukocytosis Patient remains on cefazolin. Also is getting pain medication and his been looks controlled. Objective - Vital Signs Vital signs: Vital Signs Temp 98.4 F 01/23/22 01:46 Pulse 100 01/23/22 01:46 Resp 18 01/23/22 01:46 BP 108/68 01/23/22 01:46 Pulse Ox 95 01/23/22 01:46 FiO2 Intake & Output 01/22/22 01/23/22 01/23/22 18:59 06:59 18:59 Output Total 2125 110 Balance -5 -110 Output: Drainage 275 110 Lower Back 275 110 Urine 1850 Other: Voiding Method Indwelling Catheter Toilet - Exam GENERAL: The patient is alert and oriented x3, not in any acute distress. Well developed, well nourished. HEENT: Pupils are round and equally reacting to light. EOMI. No scleral icterus. No conjunctival pallor. Normocephalic, atraumatic. No pharyngeal erythema. No thyromegaly. CARDIOVASCULAR: S1 and S2 present. No murmurs, rubs, or gallops. PULMONARY: Chest is clear to auscultation, no wheezing or crackles. ABDOMEN: Soft, nontender, nondistended, normoactive bowel sounds. No palpable organomegaly. -MUSCULOSKELETAL: No joint swelling or deformity. Surgical back wound with dressing is in Place, rest of exam is deferred to surgery team EXTREMITIES: No cyanosis, clubbing, or pedal edema. NEUROLOGICAL: Gross neurological examination did not reveal any focal deficits. SKIN: No rashes. no petechiae. - Labs CBC & Chem 7: 01/23/22 06:50 01/22/22 06:01 Labs: Abnormal Lab Results - Last 24 Hours (Table) 01/23/22 Range/Units 06:50 WBC 16.45 H (4.50-10.00) X 10*3/uL RBC 3.22 L (4.40-5.60) X 10*6/uL Hgb 10.3 L (13.0-17.0) g/dL Hct 31.0 L (39.6-50.0) % Immature Gran # 0.08 H (0.00-0.04) X 10*3/uL Neutrophils # 13.89 H (1.80-7.70) X 10*3/uL Lymphocytes # 0.81 L (0.90-5.00) X 10*3/uL Monocytes # 1.48 H (0.20-1.00) X 10*3/uL Assessment and Plan Assessment: Spondylolysis and spondylolisthesis of the lumbar spine causing radicular lumbar pain and muscle weakness area status post L3-S1 decompression surgery with fusion GERD History of osteoarthritis COPD, not in active elevation History of nicotine dependence Plan: This is a pleasant 61 years old male presents with his back pain, We will defer the treatment of back pain to the surgery primary team Continue with PPI, Protonix 40 mg daily Patient currently is on antibiotics, keep monitoring labs continue with breathing treatment as needed DVT prophylaxis, deferred to orthopedic primary team Thank you for consulting us
[2022-01-24 03:08] VITALS: TEMP 98.1
[2022-01-24] MEDS: ACETAMINOPHEN TAB 500 MG TAB PO SCH ×2 (05:56→12:34)
[2022-01-24] MEDS: LACTATED RINGERS 1,000 ML IV SCH (05:57)
--- NOTE | 2022-01-24 08:38 | P.PN ---
Subjective Progress Note Date: 01/24/22 Principal diagnosis: Lumbar spondylosis with stenosis Patient seen and examined at bedside. Patient is resting in bed. He has been ambulating within room and hallway. His LSO brace was delivered yesterday. He reports that his will be bring him his cane today. Patient states his pain is managed on current regimen. He is wanting to go home today. Discussed that the drain still has significant output, we will reassess later this afternoon and may discontinue. No compression or suction to hemovac at this time. Surgical dressing is CDI. He denies any numbness tingling to bilateral lower extremities. Patient denies any fevers/chills, nausea/vomiting, or chest pain. Objective - Vital Signs Vital signs: Vital Signs Temp 98.1 F 01/24/22 00:49 Pulse 92 01/24/22 00:49 Resp 18 01/24/22 00:49 BP 116/79 01/24/22 00:49 Pulse Ox 99 01/24/22 00:49 FiO2 Intake & Output 01/23/22 01/24/22 01/24/22 18:59 06:59 18:59 Output Total 150 100 Balance -150 -100 Output: Drainage 150 100 Lower Back 150 100 Other: # Voids 3 - Exam Physical Examination General: The patient is awake and alert, in no acute distress Skin: Skin is warm and dry with no obvious rashes or lesions. Hairy patches absent, no dorsal skin dimples, no cafe au lait spots. Surgical incision to the lumbar region. Dressing is clean dry and intact. Hemovac drain present and patent. Eye: Pupils are equal, round and reactive to light, extra-ocular movements are intact; there is normal conjunctiva bilaterally. Neck: The neck is supple, there is no tenderness and ROM intact. Cardiovascular: There is a regular rate and rhythm. No murmur, rub or gallop is appreciated. Respiratory: Lungs are clear to auscultation, respirations are non-labored, breath sounds are equal. Gastrointestinal: Soft, non-distended, non-tender abdomen . Back: There is no tenderness to palpation in the midline, paralumbar, parathoracic or buttocks region. There is no obvious deformity . Musculoskeletal: ROM limited secondary to pain and stiffness from surgical procedure. Shoulder abduction 5/5, elbow flexors 5/5, wrist dorsiflexors 5/5. finger abductor 5/5, email marketing coordinator 5/5, hip flexor 4/5, knee flexor 4/5, ankle dorsiflexor 4/5, ankle plantarflexion 4/5 and extensor hallucis 4/5. Neurological: CN 2-12 intact. There are no obvious motor or sensory deficits. Movement and coordination equal and intact. Sensory exam to light touch intact C5-T1 and intact from L2-S1. Reflexes 2/4 in bilateral upper and lower extremities. Negative Hoffmans, babinski, and clonus signs. Psychiatric: Cooperative, appropriate mood & affect, normal judgment. - Labs CBC & Chem 7: 01/23/22 06:50 01/22/22 06:01 Labs: Abnormal Lab Results - Last 24 Hours (Table) 01/23/22 Range/Units 06:50 WBC 16.45 H (4.50-10.00) X 10*3/uL RBC 3.22 L (4.40-5.60) X 10*6/uL Hgb 10.3 L (13.0-17.0) g/dL Hct 31.0 L (39.6-50.0) % Immature Gran # 0.08 H (0.00-0.04) X 10*3/uL Neutrophils # 13.89 H (1.80-7.70) X 10*3/uL Lymphocytes # 0.81 L (0.90-5.00) X 10*3/uL Monocytes # 1.48 H (0.20-1.00) X 10*3/uL Assessment and Plan Assessment: Postop day 3 L3 S1 decompression with posterior lateral and interbody fusion Plan: Plan: -Appreciate oracle drm consultant and team management. -Activity: Ambulate QID, OOB all meals, up and about, limit lifting bending twisting to less than 5 lbs. Use walker or cane if needed for stability. -Daily PT/OT, increase ambulation strength and balance. -Brace when up and about, not needed in bed or chair -Pain control: Adequate at this time -Meds: reviewed -GI ppx: senna, Miralax -DC nascimento when up and about, bedside commode if needed -DVT PPX: heparin -Hygiene: Shower today. Maintain dressing clean and dry. Meticulous cleaning after BMs away from the incision site -Drains: Maintain for now to gravity, no suction or compression. May discontinue later today. -Encourage IS 10x/hr -Dispo: Anticipate discharge home today with homecare *I reviewed and discussed this case with my attending Dr. Beavers, whom has reviewed this chart and films and is in agreement with assessment and plan of care as outlined above. I have personally seen and examined the patient, performed the documentation and the assessment and plan as written. Number of minutes spent on the visit: 20m.
[2022-01-24] MEDS: CYCLOBENZAPRINE 5 MG TAB PO SCH (08:47)
[2022-01-24] MEDS: GABAPENTIN 300 MG CAP PO SCH (08:47)
[2022-01-24 08:53] LABS: Basophils # (A) 0.05 X 10*3/uL (0.00-0.10); Basophils % (A) 0.3 %; Eosinophils # (A) 0.25 X 10*3/uL (0.04-0.35); Eosinophils % (A) 1.5 %; HCT 31.2 % (39.6-50.0); HGB 10.6 g/dL (13.0-17.0); Immature Grans, Automated 0.6 %; MCH 32.2 pg (27.0-32.0); MCV 94.8 fL (80.0-97.0); Mean Platelet Volume 9.3 fL (9.5-12.2); Monocytes # (A) 1.42 X 10*3/uL (0.20-1.00); Monocytes % (A) 8.7 %; NRBC Per 100 WBC 0 /100 WBCS (0.0-0.0); Neutrophils # (A) 13.17 X 10*3/uL (1.80-7.70); Neutrophils % (A) 80.9 %; Platelet Count 306 X 10*3/uL (140-440); RBC 3.29 X 10*6/uL (4.40-5.60); RDW 13.8 % (11.5-14.5); WBC 16.28 X 10*3/uL (4.50-10.00)
[2022-01-24 09:03] VITALS: BP 100/65; PULSE 108; RESP 20
--- NOTE | 2022-01-24 12:03 | P.DS ---
Providers Date of admission: 01/21/22 08:48 Expected date of discharge: 01/24/22 Attending physician: Kelechi Beavers DO Consults: 01/21/22 17:43 Consult Physician Routine Consulting Provider: Kike Beyer Consult Reason/Comments: Medical Management Do you want consulting provider notified?: Yes Primary care physician: [facility] Course: Hospital Course: The patient was evaluated preoperatively and found to have the diagnosis of lumbar spondylosis. They underwent appropriate preoperative care and were willing to undergo the intended procedure. They underwent a successful L3 S1 decompression with posterior lateral and interbody fusion were recovered appropriately and sent to the floor. While on the floor they worked with physical therapy, occupational therapy and nursing to enhance their recovery experience. Their pain was well controlled through their stay and they were started on appropriate medications, DVT ppx modalities, activity and dietary needs. Daily labs were monitored closely, and transfusions were only used when necessary. Medicine as well as other consulting services have made their input and have helped with our team approach and multidisciplinary care. PT milestones have been met and passed and they have made the recommendation of home for this patient and treating providers agree with this care path. The patient will be discharged home with appropriate medications, instructions and follow-up information and in stable condition. Plan - Discharge Summary Discharge Rx Participant: Yes New Discharge Prescriptions: New Cyclobenzaprine [Flexeril] 5 mg PO TID #90 tablet Sulfamethox-Tmp 800-160Mg [Bactrim DS 800-160 mg] 1 tab PO Q12HR 3 Days #6 tab Gabapentin 300 mg PO TID #90 cap oxyCODONE HCL [OxyIR] 5 mg PO Q4-6H PRN #56 tab PRN Reason: Pain No Action Naproxen [Naprosyn] 500 mg PO BID Gabapentin [Neurontin] 300 mg PO TID Omeprazole [PriLOSEC] 20 mg PO AC-BRKFST Folic Acid 1 mg PO DAILY Aspirin [Adult Low Dose Aspirin EC] 81 mg PO DAILY Fluticasone Propionate [Fluticasone Propionate Hfa 220 MCG (Inhaler)] 1 puff INHALATION BID PRN PRN Reason: sob Discharge Medication List Aspirin [Adult Low Dose Aspirin EC] 81 mg PO DAILY 01/17/22 [History] Fluticasone Propionate [Fluticasone Propionate Hfa 220 MCG (Inhaler)] 1 puff INHALATION BID PRN 01/17/22 [History] Folic Acid 1 mg PO DAILY 01/17/22 [History] Gabapentin [Neurontin] 300 mg PO TID 01/17/22 [History] Naproxen [Naprosyn] 500 mg PO BID 01/17/22 [History] Omeprazole [PriLOSEC] 20 mg PO AC-BRKFST 01/17/22 [History] Cyclobenzaprine [Flexeril] 5 mg PO TID #90 tablet 01/24/22 [Rx] Gabapentin 300 mg PO TID #90 cap 01/24/22 [Rx] Sulfamethox-Tmp 800-160Mg [Bactrim DS 800-160 mg] 1 tab PO Q12HR 3 Days #6 tab 01/24/22 [Rx] oxyCODONE HCL [OxyIR] 5 mg PO Q4-6H PRN #56 tab 01/24/22 [Rx] Follow up Appointment(s)/Referral(s): Ivanna Monge FNPBC [REFERRING] - 1 Week Kelechi Beavers DO [Doctor of Osteopathic Medicine] - 2 Weeks Activity/Diet/Wound Care/Special Instructions: Spine Discharge and Recovery Instructions Date of Surgery: 01/21/2022 Diagnosis: Lumbar spondylosis Procedure: L3 S1 decompression with posterior lateral and interbody fusion Medications: See medication list All medication refills should be obtained through your primary care doctor or your clinic spine surgeon. Please discuss prescription refills at your follow up appointment. Do not call the hospital for medication refills. Dressing: Leave your dressing in place for a total of 5 days post operatively. Then you may remove your dressing and leave open to air. Keep the area clean and if not able to keep area clean, then cover with sterile gauze and tape. Showering: You may shower 3 days after your procedure allowing soap and water to run over incision. Do not scrub. Do not soak. Blot dry. Follow up: Please confirm a follow up appointment with your surgeon 3 weeks post operat ively. Please make an appointment to follow up with your PCP in 1-2 weeks after surgery for evaluation 3 phase, 3-week plan POST OP WEEKS 1-3 1. Lifting/carrying/pushing/pulling limited to less than 5 pounds. 2. Do not sit for longer than 15 minutes at one time. Get up and walk around. Prolonged sitting is NOT advised. If you lay down, see if you can tolerate laying down on you front (belly side) 3. Walk for periods of 15 minutes = 1 mile but no longer; do it multiple times times each day. 4. Ice your low back after activity. POST OP WEEKS 3-6 1. Lifting limited to less than 20 pounds. 2. Do not sit for longer than 30 minutes at a time. Frequently change positions. Use a sit-to stand workstation or take frequent breaks from sitting if you have returned to work. 3. Walk for 30 minutes each day. If possible, do these three or more times a day POST OP WEEKS 6+ At your 6-week appointment we will give you a physical therapy referral to focus on a core stabilization and strengthening program. You should also work on leg & buttock strengthening, hamstring & quadriceps stretching, and continue a low impact aerobic activity program such as swimming, walking, or riding a stationary bicycle. During the initial 6 weeks after your surgery, you are at the highest risk of re-injuring your spine. You should generally avoid BLTs (bending, lifting and twisting combination motions) and follow the above guidelines to reduce the chance of reinjury. You can anticipate post op appointments in our office at approximately 3 weeks and 6 weeks after your surgery. INCISION CARE: If your incision is not draining you do NOT need to cover it with a dressing. Keep your incision clean, dry and intact. In most cases, we apply skin glue, bassam or sutures to the incision at the time of surgery. This will be like a crust or have the appearance of a scab and will fall off in time on its own. The stitches or bassam need to be removed at 3 weeks post op appointment. You may begin to shower 3 days after surgery (this allows the glue to snell well). However, please avoid scrubbing the incision site or peeling off any of the skin glue. This will ensure optimal healing of your incision. Also, during this time avoid soaking the incision area in water - this includes swimming pools, hot tubs or baths. No ointments, lotions or o ils on the incision until your surgeon allows. Leave bassam, sutures or glue in place. Neurological dysfunction that comes on suddenly can also be a sign of a stroke. Below some common symptoms of a stroke are listed: B - balance difficulty such as sudden onset walking or leaning to one side - NEW E - eye problem such as sudden double vision or trouble seeing on one side - NEW F - Facial weakness or numbness on one side - NEW A - Arm or leg weakness or numbness on one side - NEW S - Slurred speech or difficulty with word finding - NEW T - Time is BRAIN! Call 911 as soon as you recognize these symptoms Diet: Consume a regular diet rich in vegetables and lean protein such as chicken or f spencer. You should consume in a ratio of approximately 20% fats|40% carbohydrates|40%protein. Vegetables, sweet potatoes, brown rice or quinoa are examples of good carbohydrates. Chips, white bread, cookies and sweets/sugar are examples of bad carbohydrates. Limit your bad carbs, go wild with good carbs. "Life's Simple 7" Guidelines as per [place] [employer] These will help you reclaim your life after surgery and bender helper in your recovery, keeping in mind your restrictions. (1) Get Active. Physical activity can help people lose weight, control high blood pressure and cholesterol, feel emotionally better, and sleep better. (2) Control Cholesterol. Avoid a diet high in saturated fat, trans fat, & cholesterol. Limit whole milk & cream, ice cream, butter, egg yolks, processed meats (like sausage and hot dogs), and fatty meats. Choose healthy foods that are low in saturated fat, trans fat and cholesterol which include: Fruits and vegetables, fiber rich grain products (like whole grain pasta and brown rice), lean meat such as chicken, fish, nuts, seeds, and legumes. (3) Eat Better. Eat small portions. Shop at the grocery with a list and do not stray from it. Tips for a healthy diet include: Limit sodium intake to less than 1500mg daily, avoid prepackaged, processed, and fast foods, choose a diet rich in fruits, vegetables, and whole grain, high fiber foods, and limit saturated & cholesterol in your diet. (4) Manage Blood Pressure. If you have high blood pressure, you should have a cuff at home so that you can check your blood pressure regularly. Be sure you have a good cuff. An arm one is generally better than a wrist one. Bring the cuff to a doctor's appointment to validate that the measurements that your cuff are taking are accurate. Take your blood pressure twice daily when you are sitting down and relaxing. Record the numbers in a log and bring this log with you to your doctors' appointments. (5) Lose Weight if your BMI is above 25. A healthy BMI is between 19-25. To calculate Your BMI, you may use a Standard BMI Calculator on the NIH BMI website: <www.nhlbi.nih.gov/guidelines/obesity/BMI/bmicalc.htm>. Weigh oneself daily. If you are overweight, set a goal to lose weight. A pound a week loss if needed is a good target. (6) Reduce Blood Sugar. Limit foods and liquids with "added sugars." (Added sugars include sucrose, fructose, glucose, maltose, dextrose, high fructose corn syrup, corn syrup, concentrated fruit juice and honey). (7) Stop Smoking. If you smoke, quitting smoking is one of the best things that you can do for your health. Smoking increases your risk of heart attack, stroke, and peripheral vascular disease, which is a build-up of plaque in your arteries. Please discard all the cigarettes and lighters in your house. Have a plan for what you will do when you have the urge to smoke. Direct and second- hand smoke shortens your life as well as the lives of your family, friends and others around you. For your health and the health of those around you, please consider quitting! Proper Bending Body Mechanics: Maintain a wide stance with one foot slightly in front of the other. Keep your back straight. Bend utilizing the strength in your hips and knees. Do not bend at the waist. Maintain the lifted object at your waist-level close to your body. Avoid lifting weight that causes immediately pain or pain anywhere in the body afterwards. Smoking/Nicotine If there was ever one thing that you could do to increase your overall health, decrease your risk of cardiovascular problems by about 39% the second you make the choice, it is to STOP SMOKING. Your body's most instant gratification is the second you stop smoking. We have all heard the studies, read the articles but it is true, smoking is extremely bad for your overall health, and moreover it is detrimental to your bone health. Nicotine, IN ANY FORM, kills bone cells, prevents your body from healing fractures, and significantly prolongs healing after surgery. In spine surgery specifically, it increases your risk of not healing your bones to create a fusion and increases your risk of having a revision surgery due to this up to 60%. I know it is hard. I know it feels impossible. But there are ways. Take control of your life. We are here to help you through it. And when you are ready, ask us and we can direct you to help if you desire. Use the START Plan to Quit Smoking (please visit the [employer] website listed below for more information): S = Set a quit date. Choose a date within the next 2 weeks, so you have enough time to prepare without losing your motivation to quit. If you mainly smoke at work, quit on the weekend, so you have a few days to adjust to the change. T = Tell family, friends, and co-workers that you plan to quit. Let your friends and family in on your plan to quit smoking and tell them you need their support and encouragement to stop. Look for a quit naveen who wants to stop smoking as well. You can help each other get through the rough times. A = Anticipate and plan for the challenges you'll face while quitting. Most people who begin smoking again do so within the first 3 months. You can help yourself make it through by preparing ahead for common challenges, such as nicotine withdrawal and cigarette cravings. R = Remove cigarettes and other tobacco products from your home, car, and work. Throw away all your cigarettes (no emergency pack!), lighters, ashtrays, and matches. Wash your clothes and freshen up anything that smells like smoke. Shampoo your car, clean your drapes and carpet, and steam your furniture. T = Talk to your doctor about getting help to quit. Your doctor can prescribe medication to help with withdrawal and suggest other alternatives. If you can't see a doctor, you can get many products over the counter at your local pharmacy or grocery store, including the nicotine patch, nicotine lozenges, and nicotine gum. Resources for Quitting Smoking: <https://www.[place].gov/documents/[facility]/Quit_Tobacco_Resources_for_patients_313 480_7.pdf> Supplementation: Take recommended dosages of Vitamin D and Calcium to help fortify your bones and help them to heal. See your health maintenance packet for dosages and recommended levels. DVT/VTE prophylaxis: You will be given compression stockings from the hospital. Wear these daily for the first two weeks after surgery. You may take them off at night. You may be prescribed a medication to help thin your blood. Take this as directed. If you are not prescribed this medication, early and frequent ambulation has been shown to be the best prophylaxis to deep vein thrombosis and sequelae related to this event. Discharge Disposition: HOME WITH HOME HEALTH SERVICES
--- NOTE | 2022-01-25 14:20 | P.PN ---
Subjective Progress Note Date: 01/24/22 61 yo male with past medical history of GERD and Osteoarthritis Was admitted for the management of his back pain , radiating to her legs with weakness Patient underwent lumbar 3-sacral 1 decompression surgery with posterior lateral and interbody fusion with nerve integrity monitoring. Today is postop day #1. Patient fully awake and oriented, he has some dry mouth but able to eat and drink, he denies chest pain or dyspnea, no abdominal pain or nausea vomiting. No diarrhea. No fever. He was able to walk in the room sit in the chair this morning also he told me he ate his breakfast with no difficulty. Vitas looks stable and patient is afebrile No labs from today. As per records: Patient is supposed to having back surgery with Dr. Beavers on 01/21/2022 2 L3-S1 posterior lateral and interbody fusion. Patient already referred to cardiology for systolic murmur and EKG changes. [employer] already evaluated the patient and found patient to have average risk to undergo surgical intervention. on reviewing documents documents, patient had a Lexiscan stress test on 01/17/2022 revealing ejection fraction more than 55% with no reversible ischemia Objective - Vital Signs Vital signs: Vital Signs Temp 98.1 F 01/24/22 08:00 Pulse 108 H 01/24/22 08:00 Resp 20 01/24/22 08:00 BP 100/65 01/24/22 08:00 Pulse Ox 97 01/24/22 08:00 FiO2 Intake & Output 01/23/22 01/24/22 01/24/22 18:59 06:59 18:59 Output Total 150 100 Balance -150 -100 Output: Drainage 150 100 Lower Back 150 100 Other: # Voids 3 - Exam - Constitutional General appearance: Present: average body habitus, cooperative, no acute distress - EENT Eyes: Present: anicteric sclerae, EOMI, PERRLA, normal appearance ENT: Present: hearing grossly normal, normal oropharynx Ears: bilateral: normal - Neck Neck: Present: normal ROM. Absent: lymphadenopathy, rigidity, thyromegaly Carotids: negative: bruit present Thyroid: bilateral: normal size, negative: enlarged, nodule - Respiratory Respiratory: bilateral: CTA, negative: rales, rhonchi, wheezing - Cardiovascular Rhythm: regular Heart sounds: normal: S1, S2 Abnormal Heart Sounds: Absent: systolic murmur, diastolic murmur - Gastrointestinal General gastrointestinal: Present: normal bowel sounds, soft. Absent: distended, organomegaly, tenderness - Genitourinary Genitourinary Comment(s): deferred - Integumentary Integumentary: Present: normal turgor. Absent: jaundiced, rash, ulcer - Neurologic Neurologic: Present: CNII-XII intact. Absent: focal deficits - Musculoskeletal Musculoskeletal: Present: gait normal, strength equal bilaterally - Psychiatric Psychiatric: Present: A&O x's 3, appropriate affect, intact judgment & insight - Labs CBC & Chem 7: 01/24/22 05:22 01/22/22 06:01 Labs: Abnormal Lab Results - Last 24 Hours (Table) 01/24/22 Range/Units 05:22 WBC 16.28 H (4.50-10.00) X 10*3/uL RBC 3.29 L (4.40-5.60) X 10*6/uL Hgb 10.6 L (13.0-17.0) g/dL Hct 31.2 L (39.6-50.0) % MCH 32.2 H (27.0-32.0) pg MPV 9.3 L (9.5-12.2) fL Immature Gran # 0.09 H (0.00-0.04) X 10*3/uL Neutrophils # 13.17 H (1.80-7.70) X 10*3/uL Monocytes # 1.42 H (0.20-1.00) X 10*3/uL Assessment and Plan Assessment: Spondylolysis and spondylolisthesis of the lumbar spine causing radicular lumbar pain and muscle weakness area status post L3-S1 decompression surgery with fusion GERD History of osteoarthritis COPD, not in active elevation History of nicotine dependence Plan: This is a pleasant 61 years old male presents with his back pain, We will defer the treatment of back pain to the surgery primary team Continue with PPI, Protonix 40 mg daily Patient currently is on antibiotics, keep monitoring labs continue with breathing treatment as needed DVT prophylaxis, deferred to orthopedic primary team
== END 2022-01-24 12:57 | disposition home health service (06) | DRG 460 ==
LOC: 2ORMAIN 08:48 → 4SSUR 20:06
PROVIDERS: ADMIT Orthopaedic Surgery; ATTEND Orthopaedic Surgery
PROC: 01NB0ZZ Release Lumbar Nerve, Open Approach (ICD-10-PCS; 2022-01-21)
PROC: 01NR0ZZ Release Sacral Nerve, Open Approach (ICD-10-PCS; 2022-01-21)
PROC: 0SG307J Fusion of Lumbosacral Joint with Autologous Tissue Substitute, Posterior Approach, Anterior Column, Open Approach (ICD-10-PCS; 2022-01-21)
PROC: 0SG30AJ Fusion of Lumbosacral Joint with Interbody Fusion Device, Posterior Approach, Anterior Column, Open Approach (ICD-10-PCS; 2022-01-21)
PROC: 0SH30BZ Insertion of Interspinous Process Spinal Stabilization Device into Lumbosacral Joint, Open Approach (ICD-10-PCS; 2022-01-21)
PROC: 4A1134G Monitoring of Peripheral Nervous Electrical Activity, Intraoperative, Percutaneous Approach (ICD-10-PCS; 2022-01-21)
PROC: 8E0WXBF Computer Assisted Procedure of Trunk Region, With Fluoroscopy (ICD-10-PCS; 2022-01-21)
PROC: 0SG107J Fusion of 2 or more Lumbar Vertebral Joints with Autologous Tissue Substitute, Posterior Approach, Anterior Column, Open Approach (ICD-10-PCS; principal; 2022-01-21 10:45)
DX: M47.26 Other spondylosis with radiculopathy, lumbar region (principal); J44.9 Chronic obstructive pulmonary disease, unspecified; D72.829 Elevated white blood cell count, unspecified; M48.062 Spinal stenosis, lumbar region with neurogenic claudication; M19.90 Unspecified osteoarthritis, unspecified site; K21.9 Gastro-esophageal reflux disease without esophagitis; R68.2 Dry mouth, unspecified; R01.1 Cardiac murmur, unspecified; M43.16 Spondylolisthesis, lumbar region; M62.81 Muscle weakness (generalized); M54.6 Pain in thoracic spine; G47.8 Other sleep disorders; Z87.891 Personal history of nicotine dependence; Z79.82 Long term (current) use of aspirin; Z79.1 Long term (current) use of non-steroidal anti-inflammatories (NSAID); Z88.5 Allergy status to narcotic agent; Z88.0 Allergy status to penicillin; Z91.011 Allergy to milk products; Z91.81 History of falling; Z79.899 Other long term (current) drug therapy; Z80.9 Family history of malignant neoplasm, unspecified
CPT/HCPCS: 36415; 72100; 72131; 80048; 85025; 86850; 86900; 86901

== ENCOUNTER 2022-03-26 17:50 | Emergency (ER) | payer OTHER ==
[2022-03-26 18:19] VITALS: BP 167/96; PULSE 99; RESP 16; TEMP 98.2
[2022-03-26] MEDS ORDERED: diphenhydrAMINE 50 MG/ML 1 ML VIAL IVP STA (19:02)
[2022-03-26] MEDS ORDERED: KETOROLAC 15 MG/ML 1 ML VIAL IVP STA (19:02)
[2022-03-26] MEDS ORDERED: ONDANSETRON 4 MG/2 ML VIAL IVP STA (19:02)
[2022-03-26] MEDS ORDERED: SODIUM CHLORIDE 0.9% 1,000 ML IV STA (19:02)
--- NOTE | 2022-03-26 19:04 | ED ---
General Adult HPI - General Chief complaint: Headache Stated complaint: vomiting, headache Time Seen by Provider: 03/26/22 18:22 Source: patient Mode of arrival: ambulatory Limitations: no limitations - History of Present Illness Initial comments: Dictation was produced using [employer] dictation software. please excuse any grammatical, word or spelling errors. Chief Complaint: 61-year-old male presents emergency department for headache times several days History of Present Illness: Patient is a 61-year-old male who has past medical history of chronic back pain. Patient recently had low back surgery. Patient fell 3 weeks ago and since then has been having almost daily headaches. States it's worse in the morning and better at the evening. Eyes any fevers. States that the pain starts in his posterior neck and travels to his 400 area. Another facility paresthesias. March the bedside states that patient is behaving normally. The ROS documented in this emergency department record has been reviewed and confirmed by me. Those systems with pertinent positive or negative responses have been documented in the HPI. All other systems are other negative and/or noncontributory. PHYSICAL EXAM: General Impression: Alert and oriented x3, not in acute distress HEENT: Normocephalic atraumatic, extra-ocular movements intact, pupils equal and reactive to light bilaterally, mucous membranes moist. Cardiovascular: Heart regular rate and rhythm Chest: Able to complete full sentences, no retractions, no tachypnea Abdomen: abdomen soft, non-tender, non-distended, no organomegaly Musculoskeletal: Pulses present and equal in all extremities, no peripheral edema Motor: no focal deficits noted Neurological: CN II-XII grossly intact, no focal motor or sensory deficits noted Skin: Intact with no visualized rashes Psych: Normal affect and mood ED course: 61-year-old well-appearing male presents emergency department for a lmost daily headaches for the last several weeks after suffering a fall. Patient no acute distress. neurologic exam is unremarkable. Computed tomography scan of the brain shows subacute bilateral subdural hematomas. No evidence of acute cervical injury. Laboratory evaluation obtained. CBC, coag panel metabolic panel is unremarkable. Patient given headache cocktail. Reevaluated at bedside at 9:30 PM found to be in stable medical condition. States that her headache cocktail did not improve his symptoms whatsoever. Discussed with patient that our recommendation would be to transfer to a facility that contains neurosurgery considering that patient has evidence of intracranial bleed although subacute. Patient refused states that the nearest neurosurgery containing facilities wait for the patient demanded to be discharged. Patient told that his symptoms get worse and he may have recurrence of bleeding and worsening of headache which may ultimately lead to . Patient understands and still would like to be discharged. Patient is understandable at the time of our conversation. Risks, Benefits, and Treatment alternatives were discussed in detail with the patient. The patient is alert and oriented X 3 and has the capacity to make an informed decision. The risks of increased morbidity including the possibly of were explained to and understood by the patient who is choosing to leave against medical advice. The patient is encouraged to return any time should they want further treatment and diagnostic investigation. - Related Data Home Medications Medication Instructions Recorded Confirmed Aspirin [Adult Low Dose Aspirin EC] 81 mg PO DAILY 01/17/22 01/21/22 Fluticasone Propionate 1 puff INHALATION BID PRN 01/17/22 01/21/22 [Fluticasone Propionate Hfa 220 MCG (Inhaler)] Folic Acid 1 mg PO DAILY 01/17/22 01/21/22 Gabapentin [Neurontin] 300 mg PO TID 01/17/22 01/21/22 Naproxen [Naprosyn] 500 mg PO BID 01/17/22 01/21/22 Omeprazole [PriLOSEC] 20 mg PO AC-BRKFST 01/17/22 01/21/22 Previous Rx's Medication Instructions Recorded Cyclobenzaprine [Flexeril] 5 mg PO TID #90 tablet 01/24/22 Gabapentin 300 mg PO TID #90 cap 01/24/22 Sulfamethox-Tmp 800-160Mg [Bactrim 1 tab PO Q12HR 3 Days #6 tab 01/24/22 DS 800-160 mg] oxyCODONE HCL [OxyIR] 5 mg PO Q4-6H PRN #56 tab 01/24/22 Allergies Allergy/AdvReac Type Severity Reaction Status Date / Time codeine Allergy Nausea & Verified 03/26/22 18:19 Vomiting lactose Allergy Unknown Verified 03/26/22 18:19 Penicillins Allergy Unknown Verified 03/26/22 18:19 Childhood Review of Systems ROS Statement: Those systems with pertinent positive or pertinent negative responses have been documented in the HPI. ROS Other: All systems not noted in ROS Statement are negative. Past Medical History Past Medical History: GERD/Reflux Additional Past Medical History / Comment(s): back pain History of Any Multi-Drug Resistant Organisms: None Reported Past Surgical History: Back Surgery Additional Past Surgical History / Comment(s): colonoscopy Past Anesthesia/Blood Transfusion Reactions: No Reported Reaction Past Psychological History: No Psychological Hx Reported Smoking Status: Former smoker Past Alcohol Use History: None Reported Past Drug Use History: Marijuana - Past Family History Brother(s) Family Medical History: Cancer General Exam Limitations: no limitations Course Vital Signs 03/26/22 18:14 Temperature 98.2 F Pulse Rate 99 Respiratory 16 Rate Blood Pressure 167/96 O2 Sat by Pulse 98 Oximetry Medical Decision Making - Lab Data Result diagrams: 03/26/22 19:27 03/26/22 20:26 Lab Results 03/26/22 03/26/22 03/26/22 Range/Units 19:27 20:26 20:26 WBC 10.0 (3.8-10.6) k/uL RBC 3.85 L (4.30-5.90) m/uL Hgb 12.4 L (13.0-17.5) gm/dL Hct 36.2 L (39.0-53.0) % MCV 94.2 (80.0-100.0) fL MCH 32.1 (25.0-35.0) pg MCHC 34.1 (31.0-37.0) g/dL RDW 13.7 (11.5-15.5) % Plt Count 396 (150-450) k/uL MPV 7.9 Neutrophils % 72 % Lymphocytes % 18 % Monocytes % 7 % Eosinophils % 1 % Basophils % 0 % Neutrophils # 7.2 (1.3-7.7) k/uL Lymphocytes # 1.8 (1.0-4.8) k/uL Monocytes # 0.7 (0-1.0) k/uL Eosinophils # 0.1 (0-0.7) k/uL Basophils # 0.0 (0-0.2) k/uL PT 10.2 (9.0-12.0) sec INR 0.9 (<1.2) APTT 26.1 (22.0-30.0) sec Sodium 140 (137-145) mmol/L Potassium 3.8 (3.5-5.1) mmol/L Chloride 106 (98-107) mmol/L Carbon Dioxide 24 (22-30) mmol/L Anion Gap 10 mmol/L BUN 12 (9-20) mg/dL Creatinine 0.93 (0.66-1.25) mg/dL Est GFR (CKD-EPI)AfAm >90 (>60 ml/min/1.73 sqM) Est GFR (CKD-EPI)NonAf 90 (>60 ml/min/1.73 sqM) Glucose 87 (74-99) mg/dL Calcium 9.3 (8.4-10.2) mg/dL Disposition Clinical Impression: Intracranial bleed Disposition: Left Against Medical Advice Condition: Serious Instructions (If sedation given, give patient instructions): Hematoma (ED) Additional Instructions: Please seek immediate medical attention if her symptoms acutely worsen. This may be a sign of recurrence of bleeding. This is a very serious issue. Is patient prescribed a controlled substance at d/c from ED?: No Referrals: Svetlana Montalvo MD [Primary Care Provider] - 1-2 days Time of Disposition: 21:31
--- NOTE | 2022-03-26 19:54 | CT ---
EXAMINATION TYPE: CT brain cspine wo con CT DLP: 1387 mGycm, Automated exposure control for dose reduction was used. DATE OF EXAM: 03/26/2022 7:10 PM COMPARISON: None.. CLINICAL INDICATION:Male, 61 years old with history of headache; TECHNIQUE: Brain: Multiple axial CT images of the brain were obtained without IV contrast. Cspine: Axial CT images from the skull base to the inferior aspect of T2 we obtained without intraven ous contrast. Coronal and sagittal reformatted images were also reviewed. FINDINGS: Brain: Extra-axial spaces: There are bilateral fluid collections in the subdural space consistent with subdu ral hemorrhages. These appear more low attenuating suggesting subacute measuring up to 7 mm on the le ft and 6 mm on the right. Ventricular system: Within normal limits Cerebral parenchyma: No acute intraparenchymal hemorrhage or mass effect. The villar-white junction is well differentiated. Cerebellum: Unremarkable. Mass effect: No evidence of midline shift. Intracranial vasculature: unremarkable Soft tissues: Right posterior scalp edema/hematoma measuring 2.0 x 0.8 cm. Calvarium/osseous structures: No depressed skull fracture. Deformity to the nasal bridge which may re present remote fracture. Paranasal sinuses and mastoid air cells: There is complete opacification of the left flexor sinus as well as scattered mucosal thickening involving the right maxillary sinus and frontal sinuses. The rig ht frontal sinus is hypoplastic. Visualized orbits: Orbital contents are intact. Cervical spine: Fracture: None. Osseous structures: Multilevel degenerative disc disease changes with endplate spurring and disc oste ophyte complex's. Vertebral alignment: Within normal limits. Spinal canal/Neural Foramina: Disc osteophyte complexes at C5-C6 and C6-7. With at least mild spinal canal stenosis. Facet joint uncovertebral joint arthropathy scattered throughout the cervical spine w ith varying degrees of neural foraminal stenosis. Neck soft tissues: Prevertebral soft tissues are within normal limits. Other: The airway is patent. The lung apices are clear. IMPRESSION: 1. Bilateral subdural hemorrhages which are low attenuating suggesting subacute chronicity. Correlat e with history of fall. 2. No evidence of cervical spine fracture. 3. Mild multilevel degenerative disc disease. At to contact her provider at 03/26/2022 7:[address] Campbell Sanders.
[2022-03-26 20:43] LABS: Basophils % (A) 0 %; Eosinophils # (A) 0.1 k/uL (0-0.7); Eosinophils % (A) 1 %; HCT 36.2 % (39.0-53.0); HGB 12.4 gm/dL (13.0-17.5); Lymphocytes # (A) 1.8 k/uL (1.0-4.8); Lymphocytes % (A) 18 %; MCH 32.1 pg (25.0-35.0); MCHC 34.1 g/dL (31.0-37.0); MCV 94.2 fL (80.0-100.0); Mean Platelet Volume 7.9; Monocytes # (A) 0.7 k/uL (0-1.0); Monocytes % (A) 7 %; Neutrophils # (A) 7.2 k/uL (1.3-7.7); Neutrophils % (A) 72 %; Platelet Count 396 k/uL (150-450); RBC 3.85 m/uL (4.30-5.90); RDW 13.7 % (11.5-15.5)
[2022-03-26 20:47] LABS: African American GFR (CKD) >90 (>60 ml/min/1.73 sqM); Anion Gap 10 mmol/L; Blood Urea Nitrogen 12 mg/dL (9-20); Calcium 9.3 mg/dL (8.4-10.2); Carbon Dioxide 24 mmol/L (22-30); Chloride 106 mmol/L (98-107); Glucose 87 mg/dL (74-99); Non-African American GFR(CKD) 90 (>60 ml/min/1.73 sqM); Potassium 3.8 mmol/L (3.5-5.1); Sodium 140 mmol/L (137-145)
[2022-03-26 20:51] LABS: INR 0.9 (<1.2); Partial Thromboplastin Time 26.1 sec (22.0-30.0); Prothrombin Time 10.2 sec (9.0-12.0)
== END 2022-03-26 21:52 | disposition left against medical advice (07) ==
LOC: EC 17:50
DX: I62.9 Nontraumatic intracranial hemorrhage, unspecified (principal); K21.9 Gastro-esophageal reflux disease without esophagitis; Z87.891 Personal history of nicotine dependence; F12.90 Cannabis use, unspecified, uncomplicated; Z88.0 Allergy status to penicillin; Z91.011 Allergy to milk products; Z88.5 Allergy status to narcotic agent; Z79.82 Long term (current) use of aspirin; Z79.899 Other long term (current) drug therapy; Z53.29 Procedure and treatment not carried out because of patient's decision for other reasons
CPT/HCPCS: 36415; 80048; 85025; 85610; 85730; 72125; 70450; 99284; 96374; 96375 ×2; 96361; J1200; J2405; J1885

== ENCOUNTER 2022-03-27 17:11 | Emergency (ER) | payer OTHER ==
[2022-03-27 17:38] VITALS: TEMP 98
[2022-03-27] MEDS ORDERED: MORPHINE SULFATE 4 MG/ML SYRINGE IV STA (17:52)
--- NOTE | 2022-03-27 18:51 | ED ---
Headache HPI - General Chief Complaint: Neuro Symptoms/Deficit Stated Complaint: headache, vomiting Time Seen by Provider: 03/27/22 17:31 Mode of arrival: ambulatory Limitations: no limitations - History of Present Illness Initial Comments: This patient's 61-year-old man who arrives here by ambulance. He had gone to follow-up with his primary physician related to computed tomography scan findings from yesterday, and when at the clinicians office and they felt he required transfer. They called ambulance to arrange transfer to [facility], but patient was brought here as she was complaining of severe headache. The patient had a ground-level fall onto his buttocks approximately 3 weeks ago. He did not hit his head. Since that time he started having some h eadaches and was seen here yesterday. He had computed tomography scan that showed bilateral subdural hygroma. Patient did not want to be transferred yesterday and went home to follow up as outpatient. He states that the headache worsened and is now severe. He is not currently having neurologic symptoms other than some left leg numbness. He states that he has chronic left leg numbness due to back pain and injury. MD Complaint: headache -: week(s) Onset Description: gradual, at rest Location: diffuse Severity: severe Quality: aching Consistency: constant Improves With: nothing Worsens With: none Associated Symptoms: nausea Treatments Prior to Arrival: none - Related Data Home Medications Medication Instructions Recorded Confirmed Aspirin [Adult Low Dose Aspirin EC] 81 mg PO DAILY 01/17/22 01/21/22 Fluticasone Propionate 1 puff INHALATION BID PRN 01/17/22 01/21/22 [Fluticasone Propionate Hfa 220 MCG (Inhaler)] Folic Acid 1 mg PO DAILY 01/17/22 01/21/22 Gabapentin [Neurontin] 300 mg PO TID 01/17/22 01/21/22 Naproxen [Naprosyn] 500 mg PO BID 01/17/22 01/21/22 Omeprazole [PriLOSEC] 20 mg PO AC-BRKFST 01/17/22 01/21/22 Previous Rx's Medication Instructions Recorded Cyclobenzaprine [Flexeril] 5 mg PO TID #90 tablet 01/24/22 Gabapentin 300 mg PO TID #90 cap 01/24/22 Sulfamethox-Tmp 800-160Mg [Bactrim 1 tab PO Q12HR 3 Days #6 tab 01/24/22 DS 800-160 mg] oxyCODONE HCL [OxyIR] 5 mg PO Q4-6H PRN #56 tab 01/24/22 Allergies Allergy/AdvReac Type Severity Reaction Status Date / Time codeine Allergy Nausea & Verified 03/27/22 17:24 Vomiting lactose Allergy Unknown Verified 03/27/22 17:24 Penicillins Allergy Unknown Verified 03/27/22 17:24 Childhood Review of Systems ROS Statement: Those systems with pertinent positive or pertinent negative responses have been documented in the HPI. ROS Other: All systems not noted in ROS Statement are negative. Constitutional: Denies: fever, chills, weakness Eyes: Denies: vision change ENT: Denies: hearing loss Respiratory: Denies: cough, dyspnea Cardiovascular: Denies: chest pain, palpitations, syncope Gastrointestinal: Reports: nausea. Denies: abdominal pain, vomiting Genitourinary: Denies: dysuria, hematuria Musculoskeletal: Denies: back pain Skin: Denies: rash Neurological: Reports: headache. Denies: weakness, numbness, paresthesias Past Medical History Past Medical History: GERD/Reflux Additional Past Medical History / Comment(s): back pain History of Any Multi-Drug Resistant Organisms: None Reported Past Surgical History: Back Surgery Additional Past Surgical History / Comment(s): colonoscopy Past Anesthesia/Blood Transfusion Reactions: No Reported Reaction Past Psychological History: No Psychological Hx Reported Smoking Status: Former smoker Past Alcohol Use History: None Reported Past Drug Use History: Marijuana - Past Family History Brother(s) Family Medical History: Cancer General Exam Limitations: no limitations General appearance: alert, in no apparent distress Head exam: Present: atraumatic. Absent: normocephalic Eye exam: Present: normal appearance, PERRL, EOMI. Absent: scleral icterus, conjunctival injection ENT exam: Present: normal oropharynx Neck exam: Present: normal inspection, full ROM Course Vital Signs 03/27/22 17:21 Temperature 98 F Pulse Rate 78 Respiratory 18 Rate Blood Pressure 139/85 O2 Sat by Pulse 98 Oximetry Medical Decision Making - Medical Decision Making Patient's 61-year-old man found to have bilateral subdural hygroma. He is having worsening headache which were having difficulty time controlling it with narcotic medication. Given this we'll transfer patient to have him seen by neurosurgery. Case is discussed with the transfer team at [facility] and then with Dr. Fallon in the emergency Department who will accept transfer. Disposition Clinical Impression: Subdural hygroma Disposition: OTHER INSTITUTION NOT DEFINED Condition: Fair Is patient prescribed a controlled substance at d/c from ED?: No Referrals: Svetlana Montalvo MD [Primary Care Provider] - 1-2 days - Out of Hospital Transfer - Req. Specs Out of Hospital Transfer - Requested Specifics: Other Emergency Center
--- NOTE | 2022-03-27 18:56 | CT ---
EXAMINATION TYPE: CT brain wo con DATE OF EXAM: 03/27/2022 COMPARISON: 03/26/2022 HISTORY: Headache CT DLP: mGycm Automated exposure control for dose reduction was used. There is widening of the subdural space over both cerebral hemispheres with low attenuation. No mass effect. No midline shift. No sign of acute intracranial hemorrhage. The calvarium is intact. There is normal aeration of the mastoid sinuses. Skull base is intact. There is opacification left maxillary sinus. IMPRESSION: Bilateral chronic subdural hygromas which are not changed compared to yesterday. These measure up to 6 mm on the left side and 4 mm on the right side. No acute intracranial hemorrhage. Left maxillary sinusitis.
[2022-03-27 19:59] VITALS: BP 137/92; PULSE 64; RESP 16
[2022-03-27] MEDS ORDERED: HYDROmorphone 0.5 MG/0.5 ML SYRINGE IVP STA (20:15)
== END 2022-03-27 20:56 | disposition other institution (70) ==
LOC: EC 17:11
DX: G96.08 Other cranial cerebrospinal fluid leak (principal); K21.9 Gastro-esophageal reflux disease without esophagitis; F12.90 Cannabis use, unspecified, uncomplicated; Z87.891 Personal history of nicotine dependence; Z79.83 Long term (current) use of bisphosphonates; Z79.899 Other long term (current) drug therapy; Z88.5 Allergy status to narcotic agent; Z88.0 Allergy status to penicillin; Z91.011 Allergy to milk products
CPT/HCPCS: 87635; 70450; 99285; 96374; 96375; J2270; J1170

== ENCOUNTER 2022-04-13 18:51 | Emergency (ER) | payer OTHER ==
[2022-04-13] MEDS ORDERED: SODIUM CHLORIDE 0.9% 500 ML 500 ML IV STA (18:59)
[2022-04-13 19:02] VITALS: BP 123/71; TEMP 98.2
--- NOTE | 2022-04-13 19:17 | ED ---
General Adult HPI - General Chief complaint: Altered Mental Status Stated complaint: altered mental status Time Seen by Provider: 04/13/22 18:58 Source: patient, EMS Mode of arrival: EMS Limitations: no limitations - History of Present Illness Initial comments: Patient presents to the ED by ambulance for evaluation status post reported syncopal event. Patient was at his friend's house when he reportedly had a syncopal episode. Patient states that he does not recall this episode. Patient states that he was at his friend's house "smoking a joint" this evening when he had a syncopal episode. Patient denies any other illicit drug use or alcohol us e. Patient is currently only complaining of having a headache. Patient states that he was diagnosed with an intracranial hemorrhage about 18 days ago, and he states that he has had a headache ever since then. Patient denies head trauma or injury, neck pain or stiffness, fever or chills, focal num bness/weakness/neuro deficit, visual changes, speech difficulty, chest pain or pressure, dyspnea, cough or cold symptoms, palpitations, abdominal pain, nausea/vomiting/diarrhea, bloody or melanotic stool, dysuria or urinary symptoms, or any other symptoms or complaints. - Related Data Home Medications Medication Instructions Recorded Confirmed Aspirin [Adult Low Dose Aspirin EC] 81 mg PO DAILY 01/17/22 01/21/22 Fluticasone Propionate 1 puff INHALATION BID PRN 01/17/22 01/21/22 [Fluticasone Propionate Hfa 220 MCG (Inhaler)] Folic Acid 1 mg PO DAILY 01/17/22 01/21/22 Gabapentin [Neurontin] 300 mg PO TID 01/17/22 01/21/22 Naproxen [Naprosyn] 500 mg PO BID 01/17/22 01/21/22 Omeprazole [PriLOSEC] 20 mg PO AC-BRKFST 01/17/22 01/21/22 Previous Rx's Medication Instructions Recorded Cyclobenzaprine [Flexeril] 5 mg PO TID #90 tablet 01/24/22 Gabapentin 300 mg PO TID #90 cap 01/24/22 Sulfamethox-Tmp 800-160Mg [Bactrim 1 tab PO Q12HR 3 Days #6 tab 01/24/22 DS 800-160 mg] oxyCODONE HCL [OxyIR] 5 mg PO Q4-6H PRN #56 tab 01/24/22 Allergies Allergy/AdvReac Type Severity Reaction Status Date / Time codeine Allergy Nausea & Verified 03/27/22 17:24 Vomiting lactose Allergy Unknown Verified 03/27/22 17:24 Penicillins Allergy Unknown Verified 03/27/22 17:24 Childhood Review of Systems ROS Statement: Those systems with pertinent positive or pertinent negative responses have been documented in the HPI. ROS Other: All systems not noted in ROS Statement are negative. Past Medical History Past Medical History: GERD/Reflux Additional Past Medical History / Comment(s): back pain, recently diagnosed intracranial hemorrhage History of Any Multi-Drug Resistant Organisms: None Reported Past Surgical History: Back Surgery Additional Past Surgical History / Comment(s): colonoscopy Past Anesthesia/Blood Transfusion Reactions: No Reported Reaction Past Psychological History: No Psychological Hx Reported Smoking Status: Former smoker Past Alcohol Use History: None Reported Past Drug Use History: Marijuana - Past Family History Brother(s) Family Medical History: Cancer General Exam Limitations: no limitations General appearance: alert, in no apparent distress Head exam: Present: atraumatic, normocephalic Eye exam: Present: normal appearance, PERRL, EOMI ENT exam: Present: mucous membranes moist Neck exam: Present: other (Trachea is in midline; no nuchal rigidity or meningeal signs are present on exam). Absent: tenderness, meningismus Respiratory exam: Present: normal lung sounds bilaterally. Absent: respiratory distress, wheezes, rales, rhonchi, stridor Cardiovascular Exam: Present: normal rhythm, bradycardia, normal heart sounds, other (Normal radial pulses bilaterally) GI/Abdominal exam: Present: soft. Absent: distended, tenderness, guarding Extremities exam: Absent: tenderness, pedal edema, calf tenderness Neurological exam: Present: alert, oriented X3, CN II-XII intact. Absent: motor sensory deficit Psychiatric exam: Present: normal affect, normal mood Skin exam: Present: warm, dry, intact, normal color Course Vital Signs 04/13/22 18:58 Temperature 98.2 F Pulse Rate 51 L Respiratory 16 Rate Blood Pressure 123/71 O2 Sat by Pulse 99 Oximetry - Reevaluation(s) Reevaluation #1: 04/13/22 20:19 Case, H&P, test results thus far and ED management thus far were discussed with Dr. Whipple (ED physician at [facility]). He accepts ambulance transfer to their ED for neurosurgical evaluation. He has no further recommendations at this time. 04/13/22 20:23 Patient and are aware the patient's test results and my discussion as above. Patient remains A&O x 4 and breathing comfortably. Patient continues to have a normal neurological exam. Patient and agree with ambulance transfer to [facility] at this time. EKG Findings - EKG Comments: EKG Findings:: ED physician interpretation: Sinus bradycardia, ventricular rate of 49 bpm, no ectopy, normal WI and QRS intervals, normal QT interval, normal axis, no ST or T-wave abnormality Medical Decision Making - Medical Decision Making Patient presents to the emergency department after syncopal episode complaining of having a headache. Patient's head CT demonstrates acute on chronic subdural hemorrhage with minimally increased mass effect. Patient's labs are fairly unremarkable. Patient's EKG shows sinus bradycardia cardiac. Patient is A&O x 4 has a normal/nonfocal neurological exam in the ED. Patient was recently discharged from [facility] where he was evaluated for his subdural hemorrhages earlier this month. Patient and agree for the patient to be transferred back to [facility] by ambulance at this time for neurosurgical evaluation/continuity of care. Patient has been treated with a dose of IV Decadron in the ED given his mass effect. Ambulance transfer to the [facility] ED was accepted by Dr. Whipple. - Lab Data Result diagrams: 04/13/22 19:12 04/13/22 19:12 Lab Results 04/13/22 04/13/22 04/13/22 Range/Units 19:12 19:12 19:12 WBC 12.4 H (3.8-10.6) k/uL RBC 3.51 L (4.30-5.90) m/uL Hgb 11.0 L (13.0-17.5) gm/dL Hct 33.9 L (39.0-53.0) % MCV 96.7 (80.0-100.0) fL MCH 31.3 (25.0-35.0) pg MCHC 32.4 (31.0-37.0) g/dL RDW 14.3 (11.5-15.5) % Plt Count 391 (150-450) k/uL MPV 7.4 Neutrophils % 70 % Lymphocytes % 21 % Monocytes % 4 % Eosinophils % 2 % Basophils % 0 % Neutrophils # 8.6 H (1.3-7.7) k/uL Lymphocytes # 2.6 (1.0-4.8) k/uL Monocytes # 0.5 (0-1.0) k/uL Eosinophils # 0.2 (0-0.7) k/uL Basophils # 0.0 (0-0.2) k/uL PT 9.7 (9.0-12.0) sec INR 0.9 (<1.2) APTT 18.3 L (22.0-30.0) sec Sodium 136 L (137-145) mmol/L Potassium 3.8 (3.5-5.1) mmol/L Chloride 107 (98-107) mmol/L Carbon Dioxide 26 (22-30) mmol/L Anion Gap 3 mmol/L BUN 17 (9-20) mg/dL Creatinine 1.02 (0.66-1.25) mg/dL Est GFR (CKD-EPI)AfAm >90 (>60 ml/min/1.73 sqM) Est GFR (CKD-EPI)NonAf 80 (>60 ml/min/1.73 sqM) Glucose 110 H (74-99) mg/dL Calcium 8.8 (8.4-10.2) mg/dL Magnesium 2.0 (1.6-2.3) mg/dL Total Bilirubin <0.1 L (0.2-1.3) mg/dL AST 22 (17-59) U/L ALT 34 (4-49) U/L Alkaline Phosphatase 89 (38-126) U/L Troponin I (0.000-0.034) ng/mL Total Protein 5.9 L (6.3-8.2) g/dL Albumin 3.7 (3.5-5.0) g/dL TSH 2.650 (0.465-4.680) mIU/L Serum Alcohol <10 mg/dL 04/13/22 Range/Units 19:12 WBC (3.8-10.6) k/uL RBC (4.30-5.90) m/uL Hgb (13.0-17.5) gm/dL Hct (39.0-53.0) % MCV (80.0-100.0) fL MCH (25.0-35.0) pg MCHC (31.0-37.0) g/dL RDW (11.5-15.5) % Plt Count (150-450) k/uL MPV Neutrophils % % Lymphocytes % % Monocytes % % Eosinophils % % Basophils % % Neutrophils # (1.3-7.7) k/uL Lymphocytes # (1.0-4.8) k/uL Monocytes # (0-1.0) k/uL Eosinophils # (0-0.7) k/uL Basophils # (0-0.2) k/uL PT (9.0-12.0) sec INR (<1.2) APTT (22.0-30.0) sec Sodium (137-145) mmol/L Potassium (3.5-5.1) mmol/L Chloride (98-107) mmol/L Carbon Dioxide (22-30) mmol/L Anion Gap mmol/L BUN (9-20) mg/dL Creatinine (0.66-1.25) mg/dL Est GFR (CKD-EPI)AfAm (>60 ml/min/1.73 sqM) Est GFR (CKD-EPI)NonAf (>60 ml/min/1.73 sqM) Glucose (74-99) mg/dL Calcium (8.4-10.2) mg/dL Magnesium (1.6-2.3) mg/dL Total Bilirubin (0.2-1.3) mg/dL AST (17-59) U/L ALT (4-49) U/L Alkaline Phosphatase (38-126) U/L Troponin I <0.012 (0.000-0.034) ng/mL Total Protein (6.3-8.2) g/dL Albumin (3.5-5.0) g/dL TSH (0.465-4.680) mIU/L Serum Alcohol mg/dL - Radiology Data Chest x-ray: No active cardiopulmonary disease. Normal heart. Noncontrast head CT: Bilateral subdural acute and chronic hemorrhage with some new hemorrhage on the left side compared to old exam. There is mild mass effect which is slightly increased compared to the old exam. There is acute subdural hemorrhage at the left parietal convexity. There is new subdural minimal hemorrhage in the left lateral frontal lobe convexity. No definite evidence of parenchymal hemorrhage. Critical Care Time Critical Care Time: Yes Total Critical Care Time: 45 Disposition Clinical Impression: Syncope, Marijuana abuse, Sinus bradycardia, Subdural hemorrhage Disposition: OTHER INSTITUTION NOT DEFINED Condition: Stable Is patient prescribed a controlled substance at d/c from ED?: No Referrals: Svetlana Montalvo MD [Primary Care Provider] - 1-2 days Time of Disposition: 20:28 - Out of Hospital Transfer - Req. Specs Out of Hospital Transfer - Requested Specifics: Other Emergency Center ([facility] ED)
[2022-04-13 19:24] LABS: Basophils % (A) 0 %; Eosinophils # (A) 0.2 k/uL (0-0.7); Eosinophils % (A) 2 %; HCT 33.9 % (39.0-53.0); Lymphocytes # (A) 2.6 k/uL (1.0-4.8); Lymphocytes % (A) 21 %; MCH 31.3 pg (25.0-35.0); MCHC 32.4 g/dL (31.0-37.0); MCV 96.7 fL (80.0-100.0); Mean Platelet Volume 7.4; Monocytes # (A) 0.5 k/uL (0-1.0); Monocytes % (A) 4 %; Neutrophils # (A) 8.6 k/uL (1.3-7.7); Neutrophils % (A) 70 %; Platelet Count 391 k/uL (150-450); RBC 3.51 m/uL (4.30-5.90); RDW 14.3 % (11.5-15.5); WBC 12.4 k/uL (3.8-10.6)
--- NOTE | 2022-04-13 19:34 | CT ---
EXAMINATION TYPE: CT brain wo con DATE OF EXAM: 04/13/2022 COMPARISON: 03/27/2022 HISTORY: Syncope CT DLP: 1106.4 mGycm Automated exposure control for dose reduction was used. Images obtained of the brain with no contrast. There is widening of the subdural space over both cerebral hemispheres and more on the left side. The re is low-attenuation on the right-sided mixed attenuation on the left side. This is consistent with subacute and chronic subdural hemorrhages. Fluid measures 10 mm on the left side and 5 mm on the righ t side. There is some hyperattenuation at the left parietal convexity consistent with acute subdural hemorrhage. This measures up to 5 mm in thickness. There is slight mass effect and the midline and third ventricle are shifted to the right side. Calvar ium is intact. IMPRESSION: Bilateral subdural acute and chronic hemorrhage with some new hemorrhage on the left side compared to old exam. There is mild mass effect which is slightly increased compared to the old exam. There is a cute subdural hemorrhage at the left parietal convexity. There is new acute subdural minimal hemorrha ge in the left lateral frontal lobe convexity. No definite evidence of parenchymal hemorrhage.
[2022-04-13 19:36] LABS: INR 0.9 (<1.2); Prothrombin Time 9.7 sec (9.0-12.0)
[2022-04-13 19:47] LABS: ALT 34 U/L (4-49); AST 22 U/L (17-59); African American GFR (CKD) >90 (>60 ml/min/1.73 sqM); Albumin 3.7 g/dL (3.5-5.0); Alcohol <10 mg/dL; Alkaline Phosphatase 89 U/L (38-126); Anion Gap 3 mmol/L; Blood Urea Nitrogen 17 mg/dL (9-20); Calcium 8.8 mg/dL (8.4-10.2); Carbon Dioxide 26 mmol/L (22-30); Chloride 107 mmol/L (98-107); Glucose 110 mg/dL (74-99); Non-African American GFR(CKD) 80 (>60 ml/min/1.73 sqM); Partial Thromboplastin Time 18.3 sec (22.0-30.0); Potassium 3.8 mmol/L (3.5-5.1); Sodium 136 mmol/L (137-145); Total Bilirubin <0.1 mg/dL (0.2-1.3); Total Protein 5.9 g/dL (6.3-8.2)
--- NOTE | 2022-04-13 19:55 | XR ---
EXAMINATION TYPE: XR chest 1V portable DATE OF EXAM: 04/13/2022 COMPARISON: NONE HISTORY: Syncope TECHNIQUE: Single view FINDINGS: There is no heart failure nor confluent pneumonic infiltrate. Costophrenic angles are clear . There are no hilar masses. The bony thorax is intact. IMPRESSION: No active cardiopulmonary disease. Normal heart
[2022-04-13] MEDS ORDERED: DEXAMETHASONE SOD PHOSPHATE 10 MG/ML 1 ML VIAL IVP STA (19:58)
[2022-04-13 20:27] VITALS: PULSE 68; RESP 15
== END 2022-04-13 21:28 | disposition other institution (70) ==
LOC: EC 18:51
DX: R55 Syncope and collapse (principal); F12.10 Cannabis abuse, uncomplicated; R00.1 Bradycardia, unspecified; I62.00 Nontraumatic subdural hemorrhage, unspecified; K21.9 Gastro-esophageal reflux disease without esophagitis; Z88.0 Allergy status to penicillin; Z88.5 Allergy status to narcotic agent; Z91.011 Allergy to milk products; Z79.899 Other long term (current) drug therapy; Z79.82 Long term (current) use of aspirin; Z79.83 Long term (current) use of bisphosphonates
CPT/HCPCS: 93005; 80053; 83735; 84443; 84484; 85025; 85610; 85730; 71045; 70450; 99291; 96374; G0480; J1100; 36415; 80320

== ENCOUNTER 2022-04-29 14:18 | Emergency (ER) | payer OTHER ==
[2022-04-29 14:24] VITALS: PULSE 58; TEMP 998.1
--- NOTE | 2022-04-29 14:27 | ED ---
Headache HPI - General Chief Complaint: Headache Stated Complaint: Headache-Sent by PCP Mode of arrival: ambulatory Limitations: no limitations - History of Present Illness Initial Comments: 61-year-old male with past medical history of intracranial hemorrhage presents to the emergency room for headache. He had a fall in February around the without head injury and was seen on March 26 at his primary care office for headache. They completed an outpatient CT. It demonstrated bilateral subdural hygromas. He came into the emergency room on the and was transferred to [facility] where states he had an angiogram. On April 13 he had a syncopal episode at a friend's house and was brought in by ambulance to our facility. CT demonstrated worsening midline shift and he was transferred once again to [facility]. states he was taken into surgery on the for a craniotomy by Dr. Christopher. When he was discharged from the hospital on the , he states that his headaches were minimal. Yesterday, the patient began having a severe headache. Denies any visual changes. Does have some weakness in his left leg however it is chronic due to spinal stenosis. She denies any worsening numbness or tingling. No facial droop. Equal strength of his upper extremities. No fevers. Denies any new head trauma. No blood thinners. That's he had an episode of A. fib while hospitalized at [facility] and was to be placed on blood thinners in the future. He was seen in Dr. Beavers's office around 3:30 for his spinal stenosis yesterday. the doctor wanted lower extremity dopplers for leg swelling which are scheduled for tomorrow. No other alleviating, precipitating or modifying factors - Related Data Home Medications Medication Instructions Recorded Confirmed Aspirin [Adult Low Dose Aspirin EC] 81 mg PO DAILY 01/17/22 01/21/22 Fluticasone Propionate 1 puff INHALATION BID PRN 01/17/22 01/21/22 [Fluticasone Propionate Hfa 220 MCG (Inhaler)] Folic Acid 1 mg PO DAILY 01/17/22 01/21/22 Gabapentin [Neurontin] 300 mg PO TID 01/17/22 01/21/22 Naproxen [Naprosyn] 500 mg PO BID 01/17/22 01/21/22 Omeprazole [PriLOSEC] 20 mg PO AC-BRKFST 01/17/22 01/21/22 Previous Rx's Medication Instructions Recorded Cyclobenzaprine [Flexeril] 5 mg PO TID #90 tablet 01/24/22 Gabapentin 300 mg PO TID #90 cap 01/24/22 Sulfamethox-Tmp 800-160Mg [Bactrim 1 tab PO Q12HR 3 Days #6 tab 01/24/22 DS 800-160 mg] oxyCODONE HCL [OxyIR] 5 mg PO Q4-6H PRN #56 tab 01/24/22 Allergies Allergy/AdvReac Type Severity Reaction Status Date / Time codeine Allergy Nausea & Verified 03/27/22 17:24 Vomiting lactose Allergy Unknown Verified 03/27/22 17:24 Penicillins Allergy Unknown Verified 03/27/22 17:24 Childhood Review of Systems ROS Statement: Those systems with pertinent positive or pertinent negative responses have been documented in the HPI. ROS Other: All systems not noted in ROS Statement are negative. Past Medical History Past Medical History: GERD/Reflux Additional Past Medical History / Comment(s): back pain, recently diagnosed intracranial hemorrhage History of Any Multi-Drug Resistant Organisms: None Reported Past Surgical History: Back Surgery Additional Past Surgical History / Comment(s): colonoscopy crainotomy Past Anesthesia/Blood Transfusion Reactions: No Reported Reaction Past Psychological History: No Psychological Hx Reported Smoking Status: Former smoker Past Alcohol Use History: None Reported Past Drug Use History: Marijuana - Past Family History Brother(s) Family Medical History: Cancer General Exam Limitations: no limitations General appearance: alert, in no apparent distress Head exam: Present: atraumatic, normocephalic, normal inspection Eye exam: Present: normal appearance, PERRL, EOMI. Absent: scleral icterus, conjunctival injection, periorbital swelling ENT exam: Present: normal exam, mucous membranes moist Neck exam: Present: normal inspection. Absent: tenderness, meningismus, lymphadenopathy Respiratory exam: Present: normal lung sounds bilaterally. Absent: respiratory distress, wheezes, rales, rhonchi, stridor Cardiovascular Exam: Present: regular rate, normal rhythm, normal heart sounds. Absent: systolic murmur, diastolic murmur, rubs, gallop, clicks GI/Abdominal exam: Present: soft, normal bowel sounds. Absent: distended, tenderness, guarding, rebound, rigid Extremities exam: Present: normal inspection, full ROM, normal capillary refill. Absent: tenderness, pedal edema, joint swelling, calf tenderness Back exam: Present: normal inspection Neurological exam: Present: alert, oriented X3, CN II-XII intact Psychiatric exam: Present: normal affect, normal mood Skin exam: Present: warm, dry, intact, normal color. Absent: rash Course Vital Signs 04/29/22 04/29/22 14:20 15:56 Temperature 998.1 F H Pulse Rate 58 L 58 L Respiratory 20 18 Rate Blood Pressure 144/79 137/84 O2 Sat by Pulse 97 96 Oximetry Medical Decision Making - Medical Decision Making Upon arrival patient was placed into [facility]. A thorough history and physical exam was performed. Patient was immediately sent for CT of his brain which is interpreted by myself as areas of Acute bleed. IV is established. He is given 4 mg of morphine for pain control. Report is read by the radiologist as interval left lateral craniotomy flap. Accommodation of air and fluid directly underlying the craniotomy flap that appears to displace underlying dura immediately by once a meter. Likely recent postoperative changes. 1 cm thick subdural hematoma remains along the left lateral [place]. Similar in size. Portion of the fluid that have evolved to now chronic blood products. Still remains some intermixed high-density acute blood that may reflect interval acute bleed. Trace 5 mm subdural along the right lateral convexity also similar in size but with slightly greater degree of hyperdense acute component. 8 mm of leftward midline shift which is similar. Mass effect causing partial effacement of the basal cisterns and crowding at the base of the skull with no uziel herniation. These results are discussed with the patient. I did obtain laboratory studies. Immediately spoke with Dr. Samaniego at [facility] will be the accepting ER physician. Patient does sign COBRA forms. He will be transferred by ALS ambulance as a priority one. - Lab Data Result diagrams: 04/29/22 15:02 04/29/22 15:02 Lab Results 04/29/22 04/29/22 04/29/22 Range/Units 15:02 15: 15:02 WBC 9.3 (3.8-10.6) k/uL RBC 3.78 L (4.30-5.90) m/uL Hgb 11.9 L (13.0-17.5) gm/dL Hct 36.3 L (39.0-53.0) % MCV 95.9 (80.0-100.0) fL MCH 31.5 (25.0-35.0) pg MCHC 32.9 (31.0-37.0) g/dL RDW 14.0 (11.5-15.5) % Plt Count 553 H (150-450) k/uL MPV 7.0 Neutrophils % 72 % Lymphocytes % 16 % Monocytes % 7 % Eosinophils % 2 % Basophils % 0 % Neutrophils # 6.7 (1.3-7.7) k/uL Lymphocytes # 1.5 (1.0-4.8) k/uL Monocytes # 0.6 (0-1.0) k/uL Eosinophils # 0.2 (0-0.7) k/uL Basophils # 0.0 (0-0.2) k/uL PT 9.4 (9.0-12.0) sec INR 0.9 (<1.2) APTT 24.8 (22.0-30.0) sec Sodium 142 (137-145) mmol/L Potassium 4.0 (3.5-5.1) mmol/L Chloride 108 H (98-107) mmol/L Carbon Dioxide 29 (22-30) mmol/L Anion Gap 5 mmol/L BUN 12 (9-20) mg/dL Creatinine 0.95 (0.66-1.25) mg/dL Est GFR (CKD-EPI)AfAm >90 (>60 ml/min/1.73 sqM) Est GFR (CKD-EPI)NonAf 88 (>60 ml/min/1.73 sqM) Glucose 100 H (74-99) mg/dL Calcium 9.5 (8.4-10.2) mg/dL Total Bilirubin 0.1 L (0.2-1.3) mg/dL AST 23 (17-59) U/L ALT 34 (4-49) U/L Alkaline Phosphatase 121 (38-126) U/L Total Protein 6.8 (6.3-8.2) g/dL Albumin 4.1 (3.5-5.0) g/dL Critical Care Time Critical Care Time: Yes Critical Care Time: 32 minutes Disposition Clinical Impression: Subdural hematoma, Headache, S/P craniotomy Disposition: OTHER INSTITUTION NOT DEFINED Condition: Stable Is patient prescribed a controlled substance at d/c from ED?: No Referrals: Svetlana Montalvo MD [Primary Care Provider] - 1-2 days Time of Disposition: 15:40 - Out of Hospital Transfer - Req. Specs Out of Hospital Transfer - Requested Specifics: Other Emergency Center ([facility])
--- NOTE | 2022-04-29 15:07 | CT ---
EXAMINATION TYPE: CT brain wo con DATE OF EXAM: 04/29/2022 COMPARISON: 04/13/2022 HISTORY: 61-year-old male Recent crani, severe headache TECHNIQUE: Examination was done in axial plane without intravenous contrast. Coronal and sagittal r econstructions performed. CT DLP: 1188.4 mGycm Automated exposure control for dose reduction was used. FINDINGS: Interval left lateral craniotomy flap. Underlying subdural fluid collection measuring 1 cm thick is r elatively similar in size. It shows greater degree of CSF density component though still some intermi xed high density acute blood. Air and fluid underlying the craniotomy flap and appears to displace the underlying dura medially by 1 cm, refer to axial image 39. A trace 5 mm subdural hematoma is noted along the right lateral convexity as well. There may be sligh tly greater degree of hyperdense acute component, for example, axial and 41 compared to 04/13/2022. There is mass effect with partial effacement of the suprasellar and prepontine cisterns. Similar flat tening of the atrium of the left lateral ventricle and left temporal horn. There is 8 mm of leftward midline shift, not significantly changed Magana-white matter differentiation is maintained. Rightward nasal septal deviation. Ongoing complete opacification left maxillary sinus. Mastoid air ce lls are well pneumatized. Orbits and globes are intact. IMPRESSION: 1. Interval left lateral craniotomy flap compared to 04/21/2022. There is combination of air and flui d directly underlying the craniotomy flap that appears to displace the underlying dura medially by 1 cm. Likely recent postoperative changes. 2. A 1 cm thick subdural hematoma remains along the left lateral convexity. Overall similar in size. There are portions of the fluid that have evolved to now chronic blood products. There still remain s ome intermixed high density acute blood that may reflect interval acute bleed. 3. Trace 5 mm subdural hematoma along the right lateral convexity also similar in size but with sligh tly greater degree of hyperdense acute component. 4. Similar 8 mm of leftward midline shift compared to 04/13/2022 and mass effect causing partial effa cement of the basal cisterns and crowding at the base of the skull. No uziel herniation.
[2022-04-29 15:17] LABS: Basophils % (A) 0 %; Eosinophils # (A) 0.2 k/uL (0-0.7); Eosinophils % (A) 2 %; HCT 36.3 % (39.0-53.0); HGB 11.9 gm/dL (13.0-17.5); Lymphocytes # (A) 1.5 k/uL (1.0-4.8); Lymphocytes % (A) 16 %; MCH 31.5 pg (25.0-35.0); MCHC 32.9 g/dL (31.0-37.0); MCV 95.9 fL (80.0-100.0); Monocytes # (A) 0.6 k/uL (0-1.0); Monocytes % (A) 7 %; Neutrophils # (A) 6.7 k/uL (1.3-7.7); Neutrophils % (A) 72 %; Platelet Count 553 k/uL (150-450); RBC 3.78 m/uL (4.30-5.90); WBC 9.3 k/uL (3.8-10.6)
[2022-04-29] MEDS ORDERED: HYDROmorphone 1 MG/ML 1 ML SYRINGE IVP STA (15:19)
[2022-04-29 15:28] LABS: ALT 34 U/L (4-49); AST 23 U/L (17-59); African American GFR (CKD) >90 (>60 ml/min/1.73 sqM); Albumin 4.1 g/dL (3.5-5.0); Alkaline Phosphatase 121 U/L (38-126); Anion Gap 5 mmol/L; Blood Urea Nitrogen 12 mg/dL (9-20); Calcium 9.5 mg/dL (8.4-10.2); Carbon Dioxide 29 mmol/L (22-30); Chloride 108 mmol/L (98-107); Glucose 100 mg/dL (74-99); Non-African American GFR(CKD) 88 (>60 ml/min/1.73 sqM); Sodium 142 mmol/L (137-145); Total Bilirubin 0.1 mg/dL (0.2-1.3); Total Protein 6.8 g/dL (6.3-8.2)
[2022-04-29 15:54] LABS: INR 0.9 (<1.2); Partial Thromboplastin Time 24.8 sec (22.0-30.0); Prothrombin Time 9.4 sec (9.0-12.0)
[2022-04-29 15:58] VITALS: BP 137/84; RESP 18
== END 2022-04-29 16:00 | disposition other institution (70) ==
LOC: EC 14:18
DX: S06.5X0A Traumatic subdural hemorrhage without loss of consciousness, initial encounter (principal); R51.9 Headache, unspecified; K21.9 Gastro-esophageal reflux disease without esophagitis; Z79.899 Other long term (current) drug therapy; Z87.891 Personal history of nicotine dependence; F12.90 Cannabis use, unspecified, uncomplicated; Z91.011 Allergy to milk products; Z88.5 Allergy status to narcotic agent; Z88.0 Allergy status to penicillin; Z79.82 Long term (current) use of aspirin; Z98.890 Other specified postprocedural states; W19.XXXA Unspecified fall, initial encounter
CPT/HCPCS: 99285; 96374; 36415; 80053; 85025; 85610; 85730; 70450; J1170

== ENCOUNTER → 2023-04-10 | Outpatient (CLI) | payer OTHER ==
--- NOTE | 2023-04-10 15:38 | MR ---
EXAMINATION TYPE: MR brain wo/w con DATE OF EXAM: 04/10/2023 11:58 AM CLINICAL INDICATION:Male, 62 years old with history of M54.50 LBP, R51.0 ARROYO, M47.26 Spondylosis; PHH, Daily headaches, hx brain bleed/surgery. COMPARISON: CT brain 04/29/2022 TECHNIQUE: Multi planar, multi sequence imaging was performed through the brain including: T1, T2, In version recovery, susceptibility weighted imaging and gradient echo imaging and Diffusion weighted im aging. The patient was then given intravenous contrast and multi planar, T1 fat-saturation images wer e obtained. IV Contrast: 8 cc Gadavist FINDINGS: The villar-white junctions, ventricular system, basal cisterns appear unremarkable. Diffusion-weighted imaging shows no evidence of restricted diffusion to suggest acute/subacute infarct. Intracranial ar terial flow voids are maintained. Midline structures show no abnormality. Scattered foci of high T2 s ignal intensity are seen within the periventricular white matter. The susceptibility weighted images do not reveal any evidence for micro-hemorrhage. After administration of gadolinium, no abnormal enha ncement is seen. Developmental venous anomaly within the left cerebellum. The bone marrow signal is within normal limits. Postsurgical changes to the skull. Paranasal sinuses and mastoid air cells: Moderate scattered paranasal sinus disease. Visualized orbits: Orbital contents are intact. IMPRESSION: 1. No evidence of intracranial mass, acute/subacute infarct, or abnormal enhancement. No evidence for intracranial hemorrhage 2. Nonspecific white matter changes, likely related to small vessel ischemic disease. 3. Left cerebellum developmental venous anomaly. 4. Moderate left maxillary sinus paranasal sinus disease.
== END | disposition home or self-care (01) ==
LOC: RADMRIMAIN 11:01
PROVIDERS: ATTEND Orthopaedic Surgery
DX: R51.0 Headache with orthostatic component, not elsewhere classified (principal); M47.26 Other spondylosis with radiculopathy, lumbar region; R90.82 White matter disease, unspecified; J32.0 Chronic maxillary sinusitis; J32.8 Other chronic sinusitis; Q28.3 Other malformations of cerebral vessels
CPT/HCPCS: 70553; A9585

== ENCOUNTER → 2023-04-17 | Outpatient (CLI) | payer OTHER ==
--- NOTE | 2023-04-22 09:01 | MR ---
EXAMINATION TYPE: MR lumbar spine wo/w con DATE OF EXAM: 04/17/2023 7:39 PM COMPARISON: NONE HISTORY: Lower back pain, BLE radiculopathy. Hx surgery. CONTRAST: The patient was injected with 8.5 mL intravenous Gadavist gadolinium contrast. Multiplanar, MultiSpin echo imaging of the lumbar spine was performed. L1-L2: Mild disc desiccation with posterior disc bulge. No evidence of herniation or protrusion. No c entral stenosis or foraminal encroachment. L2-L3: Mild disc desiccation with posterior disc bulge. No evidence of herniation or protrusion. No c entral stenosis or foraminal encroachment. L3-L4: Postsurgical change of lumbar fusion with laminectomy and pedicular screws. Extensive metallic susceptibility artifact limits evaluation. L4-L5: Postsurgical change of lumbar fusion with laminectomy and pedicular screws. Extensive metallic susceptibility artifact limits evaluation. L5-S1: Postsurgical change of lumbar fusion with laminectomy and pedicular screws. Extensive metallic susceptibility artifact limits evaluation. Lumbar segments are intact. No paraspinal masses are identified. Conus medullaris has a normal appe arance. IMPRESSION: 1. Postsurgical changes of lumbar laminectomy and fusion L3-L5 S1 normal alignment. Extensive metalli c susceptibility artifact limits evaluation.
== END | disposition home or self-care (01) ==
LOC: RADMRIMAIN 18:36
PROVIDERS: ATTEND Orthopaedic Surgery
DX: M47.26 Other spondylosis with radiculopathy, lumbar region (principal); R51.0 Headache with orthostatic component, not elsewhere classified; Z98.1 Arthrodesis status
CPT/HCPCS: 72158; A9585

== ENCOUNTER 2023-09-11 09:59 | Day surgery (SDC) | payer OTHER ==
[2023-09-09 16:12] VITALS: BMI 23.0
[2023-09-11] MEDS: LACTATED RINGERS 1,000 ML IV SCH (10:37)
[2023-09-11 10:43] VITALS: RESP 16; TEMP 97.9
[2023-09-11] MEDS ORDERED: PROPOFOL 10 MG/ML 20 ML VIAL IV ONE (10:47)
[2023-09-11] MEDS ORDERED: LIDOCAINE 1% INJ 10MG/ML (20 ML MDV) ONE (10:47)
--- NOTE | 2023-09-11 11:04 | P.PCN ---
Date of Procedure: 09/11/23 Procedure(s) Performed: BRIEF HISTORY: Patient is a 62-year-old, pleasant, White male scheduled for an upper endoscopy as a part of evaluation of long-standing history of GERD.. PROCEDURE PERFORMED: Esophagogastroduodenoscopy With biopsy PREOPERATIVE DIAGNOSIS: Long-standing history of GERD IV sedation per anesthesia. PROCEDURE: After informed consent was obtained, the patient was brought into the endoscopy unit. IV sedation was administered by Anesthesia under continuous monitoring. Initially the Olympus GIF-140 video endoscope was inserted into the mouth. Esophagus intubated without any difficulty. It was gradually advanced into the stomach and duodenum and carefully examined. The bulb and the second part of the duodenum appeared normal. The scope at this time was withdrawn to the stomach, adequately insufflated with air, and upon careful examination, mucosa of the antrum,had mild gastritis and biopsies were done from this area. Mucosa of the body, cardia and the fundus appeared normal. The scope was then withdrawn into the esophagus. Small hiatal hernia noted.The GE junction was l ocated at 39 cm from the incisors. There were linear erosions in the distal esophagus consistent with LA grade B reflux esophagitis. There was a 1 cm tongue of Culver's appearing mucosa just proximal to the GE junction which was biopsied. Rest of esophagus appeared normal and the patient tolerated the procedure well. IMPRESSION: 1. Mild antral gastritis. 2. Linear erosions in the distal esophagus consistent with LA grade B reflux esophagitis 3. Small hiatal hernia and short segment Culver's esophagus status post. RECOMMENDATIONS: The findings of this examination were discussed with the patient As well as his family. He was advised to follow with the biopsy results. Advised to increase omeprazole 20 mg twice daily and follow antireflux measures. If the biopsy confirms the presence of Culver's esophagus he can have a repeat upper endoscopy in 3 years
[2023-09-11 11:29] VITALS: BP 122/86; PULSE 64
== END 2023-09-11 11:40 | disposition home or self-care (01) ==
LOC: ORWHC2ENDO 09:59
PROVIDERS: ATTEND Internal Medicine Gastroenterology
DX: K29.50 Unspecified chronic gastritis without bleeding (principal); K21.00 Gastro-esophageal reflux disease with esophagitis, without bleeding; K22.70 Barrett's esophagus without dysplasia; K44.9 Diaphragmatic hernia without obstruction or gangrene; K31.A0 Gastric intestinal metaplasia, unspecified; M19.90 Unspecified osteoarthritis, unspecified site; Z90.49 Acquired absence of other specified parts of digestive tract; Z88.5 Allergy status to narcotic agent; Z88.0 Allergy status to penicillin; Z86.73 Personal history of transient ischemic attack (TIA), and cerebral infarction without residual deficits; Z87.891 Personal history of nicotine dependence; Z79.899 Other long term (current) drug therapy
CPT/HCPCS: 88305; 43239; J2001; J2704

== ENCOUNTER 2024-04-10 09:31 | Observation (INO) | payer OTHER ==
--- NOTE | 2024-04-10 10:05 | ED ---
General Adult HPI - General Chief complaint: Chest Pain Stated complaint: Chest pain, GUSTAVO Time Seen by Provider: 04/10/24 09:40 Source: patient, RN notes reviewed, old records reviewed Mode of arrival: ambulatory Limitations: no limitations - History of Present Illness Initial comments: This is a 63-year-old male who presents to the emergency department complaining of chest pain. Patient states he woke up with his pressure on his chest. Patient states he is lightheaded with it and a little bit nauseous. Patient states he has not been short of breath. Patient states he used to smoke up until 3 years ago and he does have high blood pressure and high cholesterol. Patient denies any diaphoretic episode. Patient denies any radiation to the arm neck or back. Patient denies any recent history of fever chills or cough. Patient denies any abdominal pain patient denies any vomiting or diarrhea - Related Data Home Medications Medication Instructions Recorded Confirmed Aspirin [Adult Low Dose Aspirin EC] 81 mg PO DAILY 01/17/22 09/11/23 Fluticasone Propionate 1 puff INHALATION BID PRN 01/17/22 09/11/23 [Fluticasone Propionate Hfa 220 MCG (Inhaler)] Folic Acid 1 mg PO DAILY 01/17/22 09/11/23 Omeprazole [PriLOSEC] 20 mg PO AC-BRKFST 01/17/22 09/11/23 Previous Rx's Medication Instructions Recorded Cyclobenzaprine [Flexeril] 5 mg PO TID #90 tablet 01/24/22 oxyCODONE HCL [OxyIR] 5 mg PO Q4-6H PRN #56 tab 01/24/22 Allergies Allergy/AdvReac Type Severity Reaction Status Date / Time codeine Allergy Nausea & Verified 04/10/24 09:38 Vomiting lactose Allergy Unknown Verified 04/10/24 09:38 Penicillins Allergy Unknown Verified 04/10/24 09:38 Childhood Review of Systems ROS Statement: Those systems with pertinent positive or pertinent negative responses have been documented in the HPI. ROS Other: All systems not noted in ROS Statement are negative. Past Medical History Past Medical History: CVA/TIA, GERD/Reflux, Osteoarthritis (OA) Additional Past Medical History / Comment(s): back pain, recently diagnosed intracranial hemorrhage plate in head /2024 History of Any Multi-Drug Resistant Organisms: None Reported Past Surgical History: Back Surgery Additional Past Surgical History / Comment(s): colonoscopy, crainotomy Past Anesthesia/Blood Transfusion Reactions: No Reported Reaction Additional Past Anesthesia/Blood Transfusion Reaction / Comment(s): no blood transfusion Past Psychological History: No Psychological Hx Reported Smoking Status: Former smoker Past Alcohol Use History: None Reported Past Drug Use History: Marijuana - Past Family History Brother(s) Family Medical History: Cancer Additional Family Medical History / Comment(s): colon General Exam - General Exam Comments Initial Comments: GENERAL: Patient is well-developed and well-nourished. Patient is nontoxic and well- hydrated and is in mild distress. ENT: Neck is soft and supple. No significant lymphadenopathy is noted. Oropharynx is clear. Moist mucous membranes. Neck has full range of motion without eliciting any pain. EYES: The sclera were anicteric and conjunctiva were pink and moist. Extraocular movements were intact and pupils were equal round and reactive to light. Eyelids were unremarkable. PULMONARY: Unlabored respirations. Good breath sounds bilaterally. No audible rales r honchi or wheezing was noted. CARDIOVASCULAR: There is a regular rate and rhythm without any murmurs gallops or rubs. ABDOMEN: Soft and nontender with normal bowel sounds. SKIN: Skin is clear with no lesions or rashes and otherwise unremarkable. NEUROLOGIC: Patient is alert and oriented x3. Cranial nerves II through XII are grossly intact. Motor and sensory are also intact. Normal speech, volume and content. Symmetrical smile. MUSCULOSKELETAL: Normal extremities with adequate strength and full range of motion. No lower extremity swelling or edema. No calf tenderness. LYMPHATICS: No significant lymphadenopathy is noted PSYCHIATRIC: Normal psychiatric evaluation. Limitations: no limitations Course Vital Signs 04/10/24 04/10/24 04/10/24 09:35 10:00 11:00 Temperature 97.4 F L Pulse Rate 58 L 51 L 60 Respiratory 20 18 18 Rate Blood Pressure 146/88 148/90 144/93 O2 Sat by Pulse 99 100 100 Oximetry Medical Decision Making - Medical Decision Making EKG is interpreted by myself. EKG shows sinus bradycardia 54 bpm CA was under 58 QRS is 91 QT interval is 423 QTc is 410. Patient's EKG shows slight ST segment elevation in V3 and V4 Was pt. sent in by a medical professional or institution (, PA, OFFICE MACHINES WIRER, urgent care, hospital, or long term...) When possible be specific @ -No Did you speak to anyone other than the patient for history (EMS, parent, family, police, friend...)? What history was obtained from this source @ -No Did you review nursing and triage notes (agree or disagree)? Why? @ -I reviewed and agree with nursing and triage notes Were old charts reviewed (outside hosp., previous admission, EMS record, old EKG, old radiological studies, urgent care reports/EKG's, long term records)? Report findings @ -No old charts were reviewed Differential Diagnosis? @ -Differential Chest Pain: Stable Angina, Unstable Angina, STEMI, NSTEMI Aortic Dissection, Pneumothorax, Musculoskeletal, Esophageal Spasm GERD, Cholecystitis, Pancreatitis, Zoster, this is not meant to be an all-inclusive list. EKG interpreted by me (3pts min.). @ -As above X-rays interpreted by me (1pt min.). @ -Chest x-ray shows no acute abnormality CT interpreted by me (1pt min.). @ -None done U/S interpreted by me (1pt. min.). @ -None done What testing was considered but not performed or refused? (CT, X-rays, U/S, labs)? Why? @ -None What meds were considered but not given or refused? Why? @ -None Did you discuss the management of the patient with other professionals (professionals i.e. , PA, OFFICE MACHINES WIRER, lab, RT, psych nurse, director of social media marketing, communications clerk, teacher, duty officer, human services case manager)? Give summary @ -I spoke with Dr. Martinez and he agreed to admit the patient admit the patient wrote admitting orders Was smoking cessation discussed for >3mins.? @ -No Was critical care preformed (if so, how long)? @ -No Were there social determinants of health that impacted care today? How? (Homelessness, low income, unemployed, alcoholism, drug addiction, transportation, low edu. Level, literacy, decrease access to med. care, fdc, rehab)? @ -No Was there de-escalation of care discussed even if they declined (Discuss DNR or withdrawal of care, Hospice)? DNR status @ -No What co-morbidities impacted this encounter? (DM, HTN, Smoking, COPD, CAD, Cancer, CVA, ARF, Chemo, Hep., AIDS, mental health diagnosis, sleep apnea, morbid obesity)? @ -None Was patient admitted / discharged? Hospital course, mention meds given and route, prescriptions, significant lab abnormalities, going to OR and other pertinent info. @ -Patient was given aspirin Nitropaste and lab work was done no elevation in troponin. Chest x-ray was normal. Spoke with Dr. Cox agreed to admit the patient admitted the patient wrote admitting resident consult cardiology Undiagnosed new problem with uncertain prognosis? @ -No Drug Therapy requiring intensive monitoring for toxicity (Heparin, Nitro, Insulin, Cardizem)? @ -No Were any procedures done? @ -No Diagnosis/symptom? @ -Chest Acute, or Chronic, or Acute on Chronic? @ -Acute Uncomplicated (without systemic symptoms) or Complicated (systemic symptoms)? @ -Complicated Side effects of treatment? @ -No Exacerbation, Progression, or Severe Exacerbation? @ -No Poses a threat to life or bodily function? How? (Chest pain, USA, MT, pneumonia, PE, COPD, DKA, ARF, appy, cholecystitis, CVA, Diverticulitis, Homicidal, Suicidal, threat to staff... and all critical care pts) @ -Yes this can lead to an MT and endorgan dysfunction - Lab Data Result diagrams: 04/10/24 10:13 04/10/24 10:13 Lab Results 04/10/24 04/10/24 04/10/24 Range/Units 10:13 10:13 10:13 WBC 13.1 H (3.8-10.6) k/uL RBC 4.08 L (4.30-5.90) m/uL Hgb 13.0 (13.0-17.5) gm/dL Hct 40.5 (39.0-53.0) % MCV 99.2 (80.0-100.0) fL MCH 31.8 (25.0-35.0) pg MCHC 32.1 (31.0-37.0) g/dL RDW 13.5 (11.5-15.5) % Plt Count 395 (150-450) k/uL MPV 7.3 Neutrophils % 74 % Lymphocytes % 17 % Monocytes % 5 % Eosinophils % 1 % Basophils % 0 % Neutrophils # 9.7 H (1.3-7.7) k/uL Lymphocytes # 2.3 (1.0-4.8) k/uL Monocytes # 0.7 (0-1.0) k/uL Eosinophils # 0.2 (0-0.7) k/uL Basophils # 0.0 (0-0.2) k/uL PT 10.0 (10.0-12.5) sec INR 0.9 (<1.2) APTT 25.6 (22.0-30.0) sec Sodium 138 (137-145) mmol/L Potassium 4.4 (3.5-5.1) mmol/L Chloride 105 (98-107) mmol/L Carbon Dioxide 26 (22-30) mmol/L Anion Gap 7 mmol/L BUN 12 (9-20) mg/dL Creatinine 1.25 (0.66-1.25) mg/dL Est GFR (CKD-EPI)AfAm 72 (>60 ml/min/1.73 sqM) Est GFR (CKD-EPI)NonAf 62 (>60 ml/min/1.73 sqM) Glucose 144 H (74-99) mg/dL Calcium 9.9 (8.4-10.2) mg/dL Magnesium 2.1 (1.6-2.3) mg/dL Total Bilirubin 0.5 (0.2-1.3) mg/dL AST 20 (17-59) U/L ALT 14 (4-49) U/L Alkaline Phosphatase 122 (38-126) U/L Troponin I (0.000-0.034) ng/mL Total Protein 7.3 (6.3-8.2) g/dL Albumin 4.7 (3.5-5.0) g/dL Lipase 232 (23-300) U/L 04/10/24 Range/Units 10:13 WBC (3.8-10.6) k/uL RBC (4.30-5.90) m/uL Hgb (13.0-17.5) gm/dL Hct (39.0-53.0) % MCV (80.0-100.0) fL MCH (25.0-35.0) pg MCHC (31.0-37.0) g/dL RDW (11.5-15.5) % Plt Count (150-450) k/uL MPV Neutrophils % % Lymphocytes % % Monocytes % % Eosinophils % % Basophils % % Neutrophils # (1.3-7.7) k/uL Lymphocytes # (1.0-4.8) k/uL Monocytes # (0-1.0) k/uL Eosinophils # (0-0.7) k/uL Basophils # (0-0.2) k/uL PT (10.0-12.5) sec INR (<1.2) APTT (22.0-30.0) sec Sodium (137-145) mmol/L Potassium (3.5-5.1) mmol/L Chloride (98-107) mmol/L Carbon Dioxide (22-30) mmol/L Anion Gap mmol/L BUN (9-20) mg/dL Creatinine (0.66-1.25) mg/dL Est GFR (CKD-EPI)AfAm (>60 ml/min/1.73 sqM) Est GFR (CKD-EPI)NonAf (>60 ml/min/1.73 sqM) Glucose (74-99) mg/dL Calcium (8.4-10.2) mg/dL Magnesium (1.6-2.3) mg/dL Total Bilirubin (0.2-1.3) mg/dL AST (17-59) U/L ALT (4-49) U/L Alkaline Phosphatase (38-126) U/L Troponin I <0.012 (0.000-0.034) ng/mL Total Protein (6.3-8.2) g/dL Albumin (3.5-5.0) g/dL Lipase (23-300) U/L Disposition Clinical Impression: Chest pain Disposition: ADMITTED IP TO THIS HOSP Referrals: Svetlana Montalvo MD [Primary Care Provider] - 1-2 days Time of Disposition: 11:18
[2024-04-10] MEDS: ASPIRIN 81 MG PO STA (10:16)
[2024-04-10] MEDS: NITROGLYCERIN OINT 1 INCH/GM PACKET TOPICAL STA (10:17)
[2024-04-10 10:27] LABS: Basophils % (A) 0 %; Eosinophils # (A) 0.2 k/uL (0-0.7); Eosinophils % (A) 1 %; HCT 40.5 % (39.0-53.0); Lymphocytes # (A) 2.3 k/uL (1.0-4.8); Lymphocytes % (A) 17 %; MCH 31.8 pg (25.0-35.0); MCHC 32.1 g/dL (31.0-37.0); MCV 99.2 fL (80.0-100.0); Mean Platelet Volume 7.3; Monocytes # (A) 0.7 k/uL (0-1.0); Monocytes % (A) 5 %; Neutrophils # (A) 9.7 k/uL (1.3-7.7); Neutrophils % (A) 74 %; Platelet Count 395 k/uL (150-450); RBC 4.08 m/uL (4.30-5.90); RDW 13.5 % (11.5-15.5); WBC 13.1 k/uL (3.8-10.6)
--- NOTE | 2024-04-10 10:35 | XR ---
EXAMINATION TYPE: XR chest 2V DATE OF EXAM: 04/10/2024 10:23 AM COMPARISON: 04/13/2022 CLINICAL INDICATION: Male, 63 years old with history of Chest Pain, TECHNIQUE: XR chest 2V view(s) obtained. FINDINGS: The heart size is normal. The pulmonary vasculature is normal. The lungs are clear. There is hyperinflation diaphragm. Correlate for COPD IMPRESSION: 1. No acute pulmonary process. 2. Correlation for COPD [facility], , 04/10/2024 10:32 AM
[2024-04-10 10:36] LABS: ALT 14 U/L (4-49); AST 20 U/L (17-59); African American GFR (CKD) 72 (>60 ml/min/1.73 sqM); Albumin 4.7 g/dL (3.5-5.0); Alkaline Phosphatase 122 U/L (38-126); Anion Gap 7 mmol/L; Blood Urea Nitrogen 12 mg/dL (9-20); Calcium 9.9 mg/dL (8.4-10.2); Carbon Dioxide 26 mmol/L (22-30); Chloride 105 mmol/L (98-107); Glucose 144 mg/dL (74-99); INR 0.9 (<1.2); Lipase 232 U/L (23-300); Magnesium 2.1 mg/dL (1.6-2.3); Non-African American GFR(CKD) 62 (>60 ml/min/1.73 sqM); Partial Thromboplastin Time 25.6 sec (22.0-30.0); Potassium 4.4 mmol/L (3.5-5.1); Sodium 138 mmol/L (137-145); Total Bilirubin 0.5 mg/dL (0.2-1.3); Total Protein 7.3 g/dL (6.3-8.2)
[2024-04-10] MEDS ORDERED: NITROGLYCERIN SL TABS 0.4 MG TAB SUBLINGUAL PRN (11:18)
--- NOTE | 2024-04-10 11:53 | P.HPIM ---
History of Present Illness This is a pleasant 63 years old male with no significant past medical history. He has history of chronic low back pain and back surgery. He has chronic numbness in his left lower extremities. He woke up today feeling like an elephant sitting in his chest, moderate to severe pain, currently significantly improved. It was on the left side nonradiating, relieved by nitro paste. He had some dyspnea with it but currently no shortness of breath, no coughing. No other GI/ symptoms. No headache dizziness weakness numbness. Patient denies smoking alcohol. He uses pot sometimes. Patient states that he had a negative stress test with Dr. Aguirre about 2 years ago prior to his surgical evaluation He is hemodynamically stable and afebrile Labs are stable including CBC, BMP, liver enzymes, INR. He has mild leukocytosis of 13.1. Troponin is negative less than 0.012. Chest x-ray is negative for acute process on chest COPD changes. EKG showing sinus bradycardia at [address]-T changes. Review of Systems Review of systems CONSTITUTIONAL: No fever, no malaise, no fatigue. HEENT: No recent visual problems or hearing problems. Denied any sore throat. CARDIOVASCULAR: No orthopnea, PND, no palpitations, no syncope. PULMONARY: No shortness of breath, no cough, no hemoptysis. GASTROINTESTINAL: No diarrhea, no nausea, no vomiting, no abdominal pain. Normoactive bowel sounds. NEUROLOGICAL: No headaches, no weakness, no numbness. HEMATOLOGICAL: Denies any bleeding or petechiae. GENITOURINARY: Denies any burning micturition, frequency, or urgency. MUSCULOSKELETAL/RHEUMATOLOGICAL: Denies any joint pain, swelling, or any muscle pain. ENDOCRINE: Denies any polyuria or polydipsia. Past Medical History Past Medical History: CVA/TIA, GERD/Reflux, Osteoarthritis (OA) Additional Past Medical History / Comment(s): back pain, recently diagnosed intracranial hemorrhage plate in head /2024 History of Any Multi-Drug Resistant Organisms: None Reported Past Surgical History: Back Surgery Additional Past Surgical History / Comment(s): colonoscopy, crainotomy Past Anesthesia/Blood Transfusion Reactions: No Reported Reaction Additional Past Anesthesia/Blood Transfusion Reaction / Comment(s): no blood transfusion Past Psychological History: No Psychological Hx Reported Smoking Status: Former smoker Past Alcohol Use History: None Reported Past Drug Use History: Marijuana - Past Family History Brother(s) Family Medical History: Cancer Additional Family Medical History / Comment(s): colon Medications and Allergies Home Medications Medication Instructions Recorded Confirmed Type Aspirin [Adult Low Dose Aspirin EC] 81 mg PO DAILY 01/17/22 09/11/23 History Fluticasone Propionate 1 puff INHALATION BID PRN 01/17/22 09/11/23 History [Fluticasone Propionate Hfa 220 MCG (Inhaler)] Folic Acid 1 mg PO DAILY 01/17/22 09/11/23 History Omeprazole [PriLOSEC] 20 mg PO AC-BRKFST 01/17/22 09/11/23 History Cyclobenzaprine [Flexeril] 5 mg PO TID #90 tablet 01/24/22 09/11/23 Rx oxyCODONE HCL [OxyIR] 5 mg PO Q4-6H PRN #56 tab 01/24/22 09/11/23 Rx Allergies Allergy/AdvReac Type Severity Reaction Status Date / Time codeine Allergy Nausea & Verified 04/10/24 09:38 Vomiting lactose Allergy Unknown Verified 04/10/24 09:38 Penicillins Allergy Unknown Verified 04/10/24 09:38 Childhood Physical Exam Vitals: Vital Signs Temp Pulse Resp BP Pulse Ox 04/10/24 11:00 60 18 144/93 100 04/10/24 10:00 51 L 18 148/90 100 04/10/24 09:35 97.4 F L 58 L 20 146/88 99 Intake and Output 04/09/24 04/10/24 04/10/24 22:59 06:59 14:59 Other: Weight 81.647 kg GENERAL: The patient is alert and oriented x3, not in any acute distress. Well developed, well nourished. HEENT: Pupils are round and equally reacting to light. EOMI. No scleral icterus. No conjunctival pallor. Normocephalic, atraumatic. No pharyngeal erythema. No thyromegaly. CARDIOVASCULAR: S1 and S2 present. No murmurs, rubs, or gallops. PULMONARY: Chest is clear to auscultation, no wheezing , no crackles. ABDOMEN: Soft, nontender, nondistended, normoactive bowel sounds. No palpable organomegaly. MUSCULOSKELETAL: No joint swelling or deformity. EXTREMITIES: No cyanosis, clubbing, or pedal edema. NEUROLOGICAL: Gross neurological examination did not reveal any focal deficits. SKIN: No rashes. no petechiae. Results CBC & Chem 7: 04/10/24 10:13 04/10/24 10:13 Labs: Abnormal Lab Results - Last 24 Hours (Table) 04/10/24 04/10/24 Range/Units 10:13 10:13 WBC 13.1 H (3.8-10.6) k/uL RBC 4.08 L (4.30-5.90) m/uL Neutrophils # 9.7 H (1.3-7.7) k/uL Glucose 144 H (74-99) mg/dL Assessment and Plan Assessment: Chest pain, rule out cardiac causes Mild leukocytosis could be reactive. Check urine analysis. COPD with no acute exacerbation. Chronic low back pain status post orthopedic surgery about 2 years ago with chronic numbness in the left lower extremity Plan: Continue with aspirin Do serial troponin Check echocardiogram Cardiology consult Resume home medication GI prophylaxis: Pepcid DVT prophylaxis: Heparin Prognosis is guarded
[2024-04-10] MEDS: NITROGLYCERIN OINT 1 INCH/GM PACKET TOPICAL SCH (17:26)
[2024-04-10] MEDS: HEPARIN SODIUM,PORCINE 5,000 UNIT/ML 1 ML VIAL SQ SCH (20:25)
[2024-04-10] MEDS: FAMOTIDINE 20 MG/2 ML VIAL IV SCH (20:26)
[2024-04-11] MEDS: ASPIRIN 81 MG PO SCH (08:11)
[2024-04-11 08:44] LABS: Chol/HDL Ratio 3.56 Ratio; LDL Cholesterol,Calculated 82.7 mg/dL (0.0-131.0)
[2024-04-11] MEDS ORDERED: ASPIRIN 325 MG TAB PO SCH (09:00)
[2024-04-11] MEDS ORDERED: AMINOPHYLLINE 500 MG/20 ML VIAL IV PRN (10:22)
[2024-04-11] MEDS ORDERED: CAFFEINE CITRATE 60 MG/3 ML VIAL IV PRN (10:22)
[2024-04-11] MEDS ORDERED: REGADENOSON 0.4 MG/5 ML SYRINGE IV PRN (10:22)
--- NOTE | 2024-04-11 14:45 | CA ---
Transthoracic Echo Report Name: Catalino Hoffman Age: 63 Gender: M : 1960 Exam Date: 04/11/2024 09:04 Exam Location: [facility] Ht (in): 71 Wt (lb): 180 Ordering Physician: Michael Posadas MD Attending/Referring Phys: Field Operations Manager Gloria Guerra RDCS Procedure CPT: Indications: Chest Pain Cardiac Hx: Technical Quality: Fair Contrast 1: Total Dose (mL): Contrast 2: Total Dose (mL): MEASUREMENTS (Male / Female) Normal Values 2D ECHO LV Diastolic Diameter PLAX 5.6 cm 4.2 - 5.9 / 3.9 - 5.3 cm LV Systolic Diameter PLAX 3.5 cm IVS Diastolic Thickness 0.7 cm 0.6 - 1.0 / 0.6 - 0.9 cm LVPW Diastolic Thickness 0.9 cm 0.6 - 1.0 / 0.6 - 0.9 cm LV Relative Wall Thickness 0.3 LVOT Diameter 2.3 cm LV Diastolic Volume MOD BP 114.6 cm??? 67 - 155 / 56 - 104 cm??? LV Systolic Volume MOD BP 36.5 cm??? 22 - 58 / 19 - 49 cm??? LV Ejection Fraction MOD BP 68.1 % >= 55 % LV Cardiac Index MOD BP 2193.0 cm???/min???m??? LV Diastolic Volume MOD 4C 110.4 cm??? LV Systolic Volume MOD 4C 32.6 cm??? LV Ejection Fraction MOD 4C 70.5 % LV Cardiac Index MOD 4C 2183.8 cm???/min???m??? LV Diastolic Length 4C 8.9 cm LV Systolic Length 4C 6.8 cm LV Diastolic Volume MOD 2C 114.6 cm??? LV Systolic Volume MOD 2C 38.4 cm??? LV Ejection Fraction MOD 2C 66.5 % LV Cardiac Index MOD 2C 2138.5 cm???/min???m??? LV Diastolic Length 2C 8.5 cm LV Systolic Length 2C 6.4 cm LA Volume 61.4 cm??? 18 - 58 / 22 - 52 cm??? LA Volume Index 30.2 cm???/m??? 16 - 28 cm???/m??? Ascending Aorta Diameter 3.3 cm DOPPLER AV Peak Velocity 168.2 cm/s AV Peak Gradient 11.3 mmHg AV Mean Velocity 119.4 cm/s AV Mean Gradient 6.4 mmHg AV Velocity Time Integral 38.0 cm LVOT Peak Velocity 132.1 cm/s LVOT Peak Gradient 7.0 mmHg LVOT Velocity Time Integral 28.0 cm LVOT Stroke Volume 117.4 cm??? LVOT Stroke Volume Index 58.2 ml/m??? LVOT Cardiac Index 3296.5 cm???/min???m??? AV Area Cont Eq vti 3.1 cm??? AV Area Cont Eq pk 3.3 cm??? MV Area PHT 2.8 cm??? Mitral E Point Velocity 63.8 cm/s Mitral A Point Velocity 56.5 cm/s Mitral E to A Ratio 1.1 MV Deceleration Time 266.5 ms PV Peak Velocity 135.8 cm/s PV Peak Gradient 7.4 mmHg FINDINGS Left Ventricle Left ventricular ejection fraction is estimated at 60-65 %. Left ventricular cavity size normal. Left ventricular wall thickness normal. No obvious regional wall motion abnormalities. Right Ventricle Normal right ventricular size and function. Unable to estimate the right ventricular systolic pressure. Right Atrium Normal right atrial size. Left Atrium Mildly increased left atrial volume. Mitral Valve Structurally normal mitral valve. Mitral annular calcification. No evidence for mitral valve prolapse. No mitral stenosis. Trace mitral regurgitation. Aortic Valve Trileaflet aortic valve. No aortic stenosis. Trace aortic regurgitation. Tricuspid Valve Structurally normal tricuspid valve. No tricuspid stenosis. Trace tricuspid regurgitation. Pulmonic Valve Pulmonic valve not well visualized. No pulmonic stenosis. No pulmonic regurgitation. Pericardium No pericardial effusion. Aorta Normal size aortic root and proximal ascending aorta. CONCLUSIONS Left ventricular ejection fraction is estimated at 60-65 %. No obvious regional wall motion abnormalities. No significant valvular dysfunction Normal RV size and systolic function. Previewed by: Dr Carroll Montanez (Electronically Signed) Final Date: 11 April 2024 14:44
--- NOTE | 2024-04-11 14:57 | NM ---
EXAMINATION TYPE: NM stress lexiscan cardiolite DATE OF EXAM: 04/11/2024 COMPARISON: NONE CLINICAL INDICATION: Male, 63 years old with history of chest pain; TECHNIQUE: After the intravenous administration of 10.6 mCi Tc 99m Sestamibi - Cardiolite resting SP ECT images acquired 45 minutes post injection. The patient received 0.4mg Lexiscan, 26.5 mCi Tc 99m Sestamibi - Stress images obtained [address] injection FINDINGS: Review of stress and rest SPECT images demonstrates decreased perfusion involving the cardiac apex on stress images. Stress-induced ischemia is not excluded. Gated analysis shows normal wall motion with an estimated left ventricular ejection fraction of 72 %. IMPRESSION: Stress-induced ischemia in the region of the cardiac apex is to. [facility], , 04/11/2024 2:54 PM
--- NOTE | 2024-04-11 15:25 | CA ---
Lexiscan Nuclear Stress Test Report Name: Catalino Hoffman Exam Date: 04/11/2024 12:04 Exam Location: [place] Stress Ht (in): 71 Wt (lb): 180 BSA: 2.02 Ordering Phys: Carroll Montanez MD Referring Phys: ODALYS JAIME Technologist: Kang Koch Age: 63 Gender: M : 1960 Procedure CPT: Indications: Reflex order-Stress test ICD-10 Codes: Patient History: Medications: SEE CHART Meds past 24 hrs: Pretest Chest Pain: STRESS TEST Lexiscan Protocol Exercise Duration (min:sec): 02:[address] Depressions (mm): Angina Score: Richmond Score: Resting HR (bpm): 90 Peak HR (bpm): 146 Resting BP (mmHg): 123 / 70 Peak BP (mmHg): 152 / 92 MPHR: 159 Target HR: 135 % MPHR: 92 METS: 1.0 Total Dose: Peak Dose: Atropine: Double Product: 69778 BP Response: Stress Termination: INFUSION COMPLETE Stress Symptoms: NAUSEA Stress Summary: ECG ANALYSIS Resting ECG: Stress ECG: CONCLUSIONS RESTING EKG: Normal sinus rhythm, Heart rate 65 BPM Patient recieved IV infusion of Lexiscan 0.4mg and at peak infusion. Patient did not encounter any chest pain or chest pressure with Lexiscan infusion. Patient experienced some nausea which resolved spontaneously. STRESS EKG showed: [No significant ST-T wave changes diagnostic for ischemia by ST segment analysis] ARRYTHMIAS: [No ectopic rhythms or sustained arrythmias] CONCLUSION: 1. Normal hemodynamic and clinical response to Lexiscan infusion. 2. Non-ischemic EKG response to lexiscan infusion Please refer to the nuclear imaging portion of this stress test for complete interpretation of the study. Dr Carroll Montanez (Electronically Signed) Final Date: 11 April 2024 15:24
[2024-04-11] MEDS ORDERED: NITROGLYCERIN SL TABS 0.4 MG TAB SUBLINGUAL PRN (17:40)
[2024-04-11] MEDS ORDERED: ALPRAZolam 0.25 MG TAB PO PRN (17:40)
--- NOTE | 2024-04-11 17:40 | P.CRDCN ---
History of Present Illness Consult date: 04/11/24 History of present illness: HISTORY OF PRESENTING ILLNESS 63-year-old male with past medical history of chronic back pain and back surgery 3 years ago. At that time he had a outpatient perioperative cardiac assessment and a nonexercise based stress test which was nonrevealing. He underwent back surgery without any cardiac obligations at that time. This time he presented to the hospital with the symptoms of substernal chest pressure. He describes his symptoms as someone was sitting on his chest. This symptom started yesterday morning and continued on to the mid morning. By the time he was in the ER the symptoms started to resolve. At the time of evaluating today morning, he was symptom-free. ECG shows sinus rhythm with mild diffuse ST elevations concerning of possible pericarditis. However CRP is not elevated. Patient does report prior history of pericarditis 10 years ago. Initial troponins were negative, REVIEW OF SYSTEMS 14 point review of system is negative except what is mentioned above in HPI. PHYSICAL EXAMINATION Vital signs reviewed. Head: Normocephalic. Eyes: Sclerae nonicteric. Neck: Brisk carotid upstroke, no jugular venous distention. Lungs: Clear to auscultation. Heart: Regular rate and rhythm, S1-S2, no S3, no murmur or rub. Abdomen: Soft nontender, positive bowel sounds. Extremities: No edema, intact distal pulses. Neuro: Alert, oritented, no focal deficits. Detailed neuro exam was not performed. ASSESSMENT Substernal chest pressure, rule out of ACS Dyslipidemia Hypertension Prior history of smoking, stopped 40 years ago Mild COPD, not in exacerbation Chronic lower back pain Prior history of pericarditis in 2014 Cardiac testing LDL 82, Echo showed EF 60 to 65%, no resting regional wall motion abnormality, no si gnificant valvular dysfunction Lexiscan showed moderate size moderate intensity reversible perfusion defect in the apical segment and periapical segments. PLAN For this we will plan for a cardiac catheterization procedure. I explained him the procedure steps and the associated risk factors of stroke, , MS, cardiac injury requiring emergent surgery. Patient understands this and would like to proceed. Plan for cardiac catheter tomorrow Carroll Montanez MD, FACC, RPVI Thank you for allowing [facility] to participate in this patient's care. Feel free to reach out in case of any followup questions. Past Medical History Past Medical History: CVA/TIA, GERD/Reflux, Osteoarthritis (OA) Additional Past Medical History / Comment(s): back pain, recently diagnosed intracranial hemorrhage plate in head /2024 History of Any Multi-Drug Resistant Organisms: None Reported Past Surgical History: Back Surgery Additional Past Surgical History / Comment(s): colonoscopy, crainotomy Past Anesthesia/Blood Transfusion Reactions: No Reported Reaction Additional Past Anesthesia/Blood Transfusion Reaction / Comment(s): no blood transfusion Past Psychological History: No Psychological Hx Reported Smoking Status: Former smoker Past Alcohol Use History: None Reported Additional Past Alcohol Use History / Comment(s): quit smoking 2021 smoked since age 15 Past Drug Use History: Marijuana Additional Drug Use History / Comment(s): does smoke marijuana aware to not do this 24 hours prior to procedure - Past Family History Brother(s) Family Medical History: Cancer Additional Family Medical History / Comment(s): colon Medications and Allergies Home Medications Medication Instructions Recorded Confirmed Type Atorvastatin [Lipitor] 10 mg PO HS 04/10/24 04/10/24 History Metoprolol Tartrate [Lopressor] 25 mg PO BID 04/10/24 04/10/24 History Pantoprazole Sodium [Protonix] 40 mg PO BID 04/10/24 04/10/24 History Allergies Allergy/AdvReac Type Severity Reaction Status Date / Time codeine Allergy Nausea & Verified 04/10/24 12:15 Vomiting lactose Allergy Unknown Verified 04/10/24 12:15 Penicillins Allergy "woozy" Verified 04/10/24 12:15 Physical Exam Vitals: Vital Signs Temp Pulse Pulse Resp BP BP Pulse Ox 04/11/24 13:15 97.6 F 63 16 120/65 99 04/11/24 08:19 97 04/11/24 07:00 98.1 F 94 16 121/74 98 04/11/24 01:39 98.0 F 60 17 95/58 100 04/10/24 21:36 67 04/10/24 21:29 97.8 F 67 17 119/64 100 04/10/24 20:30 60 13 115/76 98 04/10/24 18:52 56 L 18 112/68 96 Intake and Output 04/11/24 04/11/24 04/11/24 06:59 14:59 22:59 Other: # Voids 2 3 Results 04/10/24 10:13 04/10/24 10:13 Lipids 04/11/24 Range/Units 04:12 Triglycerides 115.00 (0.00-149.00) mg/dL Cholesterol 147.00 (0.00-200.00) mg/dL HDL Cholesterol 41.30 (40.00-60.00) mg/dL Cholesterol/HDL Ratio 3.56 Ratio Current Medications Generic Name Dose Route Start Last Admin Trade Name Freq PRN Reason Stop Dose Admin Aspirin 81 mg 04/11/24 09:00 04/11/24 08:11 Aspirin 81 Mg PO 81 mg DAILY SIMON Administration Famotidine 20 mg 04/10/24 21:00 04/11/24 08:11 Famotidine 20 Mg/2 Ml Vial IV 20 mg Q12HR SIMON Administration Heparin Sodium (Porcine) 5,000 unit 04/10/24 21:00 04/11/24 08:11 Heparin Sodium,Porcine 5,000 Unit/Ml 1 Ml Vial SQ 5,000 unit Q12HR SIMON Administration Nitroglycerin 0.4 mg 04/10/24 11:18 Nitroglycerin Sl Tabs 0.4 Mg Tab SUBLINGUAL Q5M PRN Chest Pain Nitroglycerin 1 inch 04/10/24 18:00 04/11/24 11:53 Nitroglycerin Oint 1 Inch/Gm Packet TOPICAL Not Given Q6HR SIMON Intake and Output 04/11/24 04/11/24 04/11/24 06:59 14:59 22:59 Other: # Voids 2 3 04/10/24 10:13 04/10/24 10:13
[2024-04-11] MEDS: ATORVASTATIN 80 MG TAB PO STA (19:38)
[2024-04-11] MEDS: METOPROLOL TARTRATE 25 MG TAB PO SCH (22:03)
[2024-04-12] MEDS: SODIUM CHLORIDE 0.9% 1,000 ML in EMPTY BAG 1 BAG IV SCH (02:00)
[2024-04-12] MEDS: PANTOPRAZOLE 40 MG TABLET PO SCH (05:58)
[2024-04-12] MEDS: ATORVASTATIN 80 MG TAB PO ONE (05:58)
[2024-04-12] MEDS: ASPIRIN 81 MG PO ONE (05:58)
[2024-04-12 06:01] LABS: Glucose,Whole Blood 102 mg/dL (70-110)
[2024-04-12] MEDS ORDERED: HEPARIN SODIUM,PORCINE (1 ML) 2,500 UNIT in SODIUM CHLORIDE 0.9% 250 ML IRRIGATION PRN (07:00)
[2024-04-12] MEDS ORDERED: HEPARIN SODIUM,PORCINE 10,000 UNIT in SODIUM CHLORIDE 0.9% 1,000 ML IRRIGATION PRN (07:00)
[2024-04-12 07:40] VITALS: PULSE 55; RESP 16; TEMP 97.9
[2024-04-12] MEDS: HEPARIN SODIUM,PORCINE (1 ML) 2,500 UNIT in SODIUM CHLORIDE 0.9% 250 ML IRRIGATION ONE (09:15)
[2024-04-12] MEDS: HEPARIN SODIUM,PORCINE 10,000 UNIT in SODIUM CHLORIDE 0.9% 1,000 ML IRRIGATION ONE (09:15)
--- NOTE | 2024-04-12 09:34 | P.PN ---
Subjective Progress Note Date: 04/11/24 This is a pleasant 63 years old male with no significant past medical history. He has history of chronic low back pain and back surgery. He has chronic numbness in his left lower extremities. He woke up today feeling like an elephant sitting in his chest, moderate to severe pain, currently significantly improved. It was on the left side nonradiating, relieved by nitro paste. He had some dyspnea with it but currently no shortness of breath, no coughing. No other GI/ symptoms. No headache dizziness weakness numbness. Patient denies smoking alcohol. He uses pot sometimes. Patient states that he had a negative stress test with Dr. Aguirre about 2 years ago prior to his surgical evaluation He is hemodynamically stable and afebrile Labs are stable including CBC, BMP, liver enzymes, INR. He has mild leukocytosis of 13.1. Troponin is negative less than 0.012. Chest x-ray is negative for acute process on chest COPD changes. EKG showing sinus bradycardia at [address]-T changes. 04/12/2024 This is a very pleasant 63-year-old male who was recently admitted with chest pain and reports had heavy pressure on his chest and abdomen that persisted. Patient evaluated by cardiology recommending stress test which is pending for today. Patient denies any further symptoms and denies any chest pain or shortness of breath. Patient is afebrile with no reported nausea or vomiting a nd currently n.p.o. for the stress test. Will await official report Review of systems: Constitutional: No reports of fatigue, fever, or chills Cardiovascular: No reports of chest pain or palpitations Respiratory: No reports of shortness of breath or cough GI: No reports of nausea, no reports of vomiting, no diarrhea : No reports of dysuria or retention Neurovascular: No reports of generalized weakness All medications have been reviewed PHYSICAL EXAMINATION: GENERAL: The patient is alert and oriented x4, Well developed, well nourished. HEENT: Pupils are round and equally reacting to light. EOMI. no scleral icterus. No conjunctival pallor. Normocephalic, atraumatic. No pharyngeal erythema. No thyromegaly. CARDIOVASCULAR: S1 and S2 muffled PULMONARY: diminished breath sounds bilaterally with no wheezing or rhonchi noted. ABDOMEN: soft. Nontender on exam. Thin.. non-distended, normoactive bowel sounds. No palpable organomegaly. MUSCULOSKELETAL: No joint swelling or deformity. EXTREMITIES: No cyanosis, clubbing, or pedal edema. NEUROLOGICAL: Gross neurological examination did not reveal any focal deficits. SKIN: No rashes. Assessment: Chest pain, rule out ACS Mild leukocytosis, could be reactive COPD with no exacerbation History of CVA/TIA Recently diagnosed intracranial hemorrhage with a plate in the head in July 2023 GERD History of osteoarthritis Chronic lower back pain status post orthopedic surgery 2 years ago with chronic numbness in the left lower extremity THC use GI prophylaxis DVT prophylaxis Full code Plan: Recommend to continue with current medications and management with cardiology following Patient underwent a stress test today with concerns of reversible ischemia cardiology recommending cardiac catheterization and patient is agreeable. Patient denies any further symptoms and denies any chest pain or shortness of breath Home medications reviewed and resumed as appropriate Patient will be n.p.o. at midnight and undergo cardiac catheterization Will discuss with cardiology regarding discharge planning with possible discharge in the next 24 hours The impression and plan of care has been dictated by Marianela Koenig, nurse practitioner as directed. Dr. Too MD I have performed a history and examination and MDM of this patient, discussed the same with the dictator, and agree with the dictator's assessment and plan as written ,documented as a scribe. Based on total visit time, I have performed more than 50% of the visit. Any additional findings or plans will be noted. Objective - Vital Signs Vital signs: Vital Signs Temp 97.6 F 04/11/24 13:15 Pulse 63 04/11/24 13:15 Resp 16 04/11/24 13:15 BP 120/65 04/11/24 13:15 Pulse Ox 99 04/11/24 13:15 FiO2 Intake & Output 04/10/24 04/11/24 04/11/24 18:59 06:59 18:59 Weight 81.647 kg 81.647 kg Other: # Voids 2 3 - Labs CBC & Chem 7: 04/10/24 10:13 04/10/24 10:13
[2024-04-12] MEDS: LIDOCAINE 1% INJ 10MG/ML (20 ML MDV) SQ ONE (09:42)
[2024-04-12] MEDS: fentaNYL (PF) 50 MCG/ML 2 ML AMP IVP ONE (09:43)
[2024-04-12] MEDS: MIDAZOLAM 2 MG/2 ML VIAL IVP ONE (09:44)
[2024-04-12] MEDS: VERAPAMIL SYRINGE (5 MG/10 ML) INTRAARTER ONE (09:44)
[2024-04-12] MEDS: HEPARIN SODIUM 1,000 UN/ML (10ML VL) IVP ONE (09:48)
[2024-04-12] MEDS: IOPAMIDOL-370 100ML BTL INJ ONE (09:57)
[2024-04-12] MEDS: IV FLUID CONTINUATION 900 ML IV ONE (09:57)
--- NOTE | 2024-04-12 10:07 | P.CARDCATH ---
Date of Procedure: 04/12/24 Description of Procedure: DIAGNOSTIC CORONARY ANGIOGRAPHY and LEFT HEART CATH REPORT PROCEDURES PERFORMED: Left heart catheterization Selective coronary angiography Moderate conscious sedation 17 mins [Ultrasound assisted] Right radial access INDICATION: Abnormal Lexiscan nuclear stress test Patient presented to the hospital with substernal chest pressure symptoms. He was ruled out of ACS. He underwent a Lexiscan nuclear stress test which showed reversible perfusion defect in the apical and periapical segment of moderate size moderate intensity. For this he was scheduled for a heart catheterization procedure. CONSENT: I have explained the procedural steps of above-mentioned procedures in layman's terms to the patient. I discussed the risks (including but not limited to stroke, emergent vascular or cardiac surgery or ), benefits and alternative therapies for the above-mentioned procedure. I discussed the risks of sedation/analgesia and blood product administration (if indicated). The patient has indicated understanding and acceptance of these risks. Conscious Sedation: Patient's ECG, heart rate, blood pressure, pulse oximetry were monitored throughout the duration of procedure under my direct supervision. [2] mg Versed and [50] mcg Fentanyl were used for induction of moderate conscious sedation. Total duration of moderate concious sedation 17 minutes. PROCEDURE: After explaining the risks, benefits and alternatives of the above mentioned procedures in detail to the patient, informed consent was obtained. Patient was taken to the catheterization lab, prepped and draped in usual sterile fashion using universal precuations. Ultrasound was used to identify the radial artery. 1% lidocaine was infiltrated over the right radial artery. A 6-Marshallese sheath was placed and secured in the right radial artery using modified Seldinger technique. The sheath was flushed and 5 mg verapamil was administered intra-arterially. J tipped wire was advanced under fluoroscopic guidance. Once the wire tip reached aortic root [5000] units of IV heparin was given. Over the wire JR4 diagnostic catheter was advanced. The wire in place the catheter was manipulated to cross the aortic valve and entered into LV under fluoroscopy guidance. The wire was removed and the catheter was flushed. LV pressures were obtained and pullback was performed under fluoroscopy. Catheter was manipulated to selectively engage the right coronary ostium. Right coronary angiography was performed in different angiographic projections. The JR4 diagnostic catheter was exchanged for a JL 3.5 diagnostic catheter over the J-wire. The wire was removed, catheter was flushed and manipulated under fluoroscopy to selectively engaged the left coronary ostium. Left coronary angioplasty was performed in different angiographic projections. Catheter was removed over the wire. Radial sheath was flushed. The right radial sheath was removed and a TR band was placed with excellent patent hemostasis was achieved. The patient tolerated the procedure well. Patient was transported back to the post catheterization holding area in stable condition. Angiographic images were reviewed in detail. Complications: None Estimated blood loss: Less than 10 mL Contrast used: Isovue 50 mL Catheters used: 6 Marshallese JR4 and JL 3.5 Catheter engagement challenge: None HEMODYNAMICS: Aortic Pressure: 100/60 mmHg. LV pressure: 100/5 mmHg. LVEDP 10 mmHg. There was no significant gradient across the aortic valve. SELECTIVE CORONARY ARTERIOGRAPHY: LEFT MAIN: The left main is short and large caliber vessel. It bifurcates into the LAD and circumflex. Left main appears angiographically normal. LEFT ANTERIOR DESCENDING CORONARY ARTERY: LAD is a large caliber vessel which wraps around to the apex. Proximal LAD appears angiographically normal. Mid LAD appears angiographically normal. Distal LAD appears angiographically normal. LEFT CIRCUMFLEX CORONARY ARTERY: It is nondominant vessel. Left circumflex is a small caliber vessel. It appears angiographically normal. RIGHT CORONARY ARTERY: Dominant vessel. The right coronary artery is a large caliber vessel which gives PDA and PLV branch. It appears angiographically normal. IMPRESSION: Angiographically normal coronary arteries as described above. Normal left sided filling pressures PLAN: Aggressive risk factor modification per most recent ACC/AHA guidelines. 125 cc fluids for 4 hours Discharge home in 4 hours Follow-up in the office in 1-2 weeks. Performing Physician Carroll Montanez MD, FACC, RPVI
[2024-04-12] MEDS ORDERED: RX INFO: IV CONTRAST WAS GIVEN 1 EACH MISC MISCELLANE PRN (10:09)
[2024-04-12] MEDS: SODIUM CHLORIDE 0.9% 1,000 ML IV SCH (10:53)
[2024-04-12 14:35] VITALS: BP 117/70
--- NOTE | 2024-04-15 10:42 | P.DS ---
Providers Date of admission: 04/10/24 11:20 Expected date of discharge: 04/12/24 Attending physician: Michael Posadas MD Consults: 04/10/24 11:19 Consult Physician Urgent Consulting Provider: [facility] Reason/Comments: Chest pain Do you want consulting provider notified?: Yes Primary care physician: Svetlana Montalvo [facility] Course: Final diagnosis Chest pain, ruled out ACS, abnormal stress testing, status post cardiac catheterization showing normal coronary arteries Mild leukocytosis, could be reactive COPD with no exacerbation History of CVA/TIA Recently diagnosed intracranial hemorrhage with a plate in the head in July 2023 GERD History of osteoarthritis Chronic lower back pain status post orthopedic surgery 2 years ago with chronic numbness in the left lower extremity THC use GI prophylaxis DVT prophylaxis Full code Discharge disposition Patient is being discharged in a stable condition with guarded prognosis to home. Patient will follow-up with Dr. Charbel Gage in the outpatient setting upon discharge. Patient is to continue with current medications and outpatient follow-up with cardiology as scheduled. Total time taken is greater than 35 minutes. Hospital course This is a 63-year-old male who was recently admitted with chest pain, ruled out ACS underwent stress test which was concerning for reducible ischemia. Cardiolo gy following recommend cardiac catheterization which revealed normal coronary arteries recommending maximizing medical management and close outpatient follow- up with cardiology Dr. Montanez in 1 week. Patient has been cleared for discharge and reports to feeling well and would like to go home. Please refer to other consultation notes for further HPI. Currently no reports of chest pain, shortness of breath, or palpitations. Patient is afebrile. No reports of nausea or vomiting and patient is tolerating diet. Patient will be discharged home today. Overall guarded prognosis. Physical exam: Gen: This is a 63-year-old male who is awake, alert and oriented x 3, well- developed, elderly appearing HEENT: Head is atraumatic, normocephalic. Pupils equal, round. Sclerae is anicteric. NECK: Supple. No JVD. No lymphadenopathy. No thyromegaly. LUNGS: Clear to auscultation. No wheezes or rhonchi. No intercostal retractions. HEART: Regular rate and rhythm. No murmur. ABDOMEN: Soft. Bowel sounds are present. No masses. No tenderness. EXTREMITIES: No pedal edema. No calf tenderness. NEUROLOGICAL: Patient is awake, alert and oriented x3. Diffusely weak. Please refer to medication reconciliation sheet for a list of medications. The impression and plan of care has been dictated by Marianela Koenig, Nurse Practitioner as directed. Dr. Too MD I have performed a history and examination and MDM of this patient, discussed the same with the dictator, and agree with the dictator's assessment and plan as written ,documented as a scribe. Based on total visit time, I have performed more than 50% of the visit. Patient Condition at Discharge: Fair Plan - Discharge Summary Discharge Rx Participant: No New Discharge Prescriptions: Continue Pantoprazole Sodium [Protonix] 40 mg PO BID Metoprolol Tartrate [Lopressor] 25 mg PO BID Atorvastatin [Lipitor] 10 mg PO HS Discharge Medication List Atorvastatin [Lipitor] 10 mg PO HS 04/10/24 [History] Metoprolol Tartrate [Lopressor] 25 mg PO BID 04/10/24 [History] Pantoprazole Sodium [Protonix] 40 mg PO BID 04/10/24 [History] Follow up Appointment(s)/Referral(s): Carroll Montanez MD [Medical Doctor] - 1 Week (Follow up with Dr. Aguirre on April 19 @ 1030am.) Svetlana Montalvo MD [Primary Care Provider] - 1-2 days Patient Instructions/Handouts: Chest Pain (DC), Heart Catheterization (DC) Activity/Diet/Wound Care/Special Instructions: Activity limited until follow-up Follow-up with cardiology outpatient Dr. Montanez Follow-up primary care provider on discharge as you scheduled Follow-up with GI outpatient Discharge Disposition: HOME SELF-CARE
== END 2024-04-12 14:44 | disposition home or self-care (01) ==
LOC: EC 09:31 → 6NMEDSUR 11:20
PROVIDERS: ADMIT Internal Medicine; ATTEND Internal Medicine
DX: R07.9 Chest pain, unspecified (principal); R94.39 Abnormal result of other cardiovascular function study; D72.829 Elevated white blood cell count, unspecified; E78.5 Hyperlipidemia, unspecified; G89.29 Other chronic pain; M54.50 Low back pain, unspecified; I10 Essential (primary) hypertension; J44.9 Chronic obstructive pulmonary disease, unspecified; K21.9 Gastro-esophageal reflux disease without esophagitis; M19.90 Unspecified osteoarthritis, unspecified site; Z86.73 Personal history of transient ischemic attack (TIA), and cerebral infarction without residual deficits; Z87.891 Personal history of nicotine dependence; Z88.5 Allergy status to narcotic agent; Z88.0 Allergy status to penicillin; Z79.82 Long term (current) use of aspirin; Z79.51 Long term (current) use of inhaled steroids; Z79.899 Other long term (current) drug therapy; Z86.79 Personal history of other diseases of the circulatory system
CPT/HCPCS: 96372 ×2; 96376; 96374; 99285; 36415; 94760; 93005; 93017; 93306; 93458; 80061; 80053; 85652; 83690; 83735; 84484; 85025; 85610; 85730; 86140; 71046; 78452; G0378 ×3; C1769 ×2; C1894; A9500; J2250; J1644 ×5; J2003; J3010; J3490 ×2; J2785; Q9967

== ENCOUNTER → 2024-05-02 | Outpatient (CLI) | payer OTHER ==
--- NOTE | 2024-05-02 15:30 | NM ---
EXAMINATION TYPE: NM hepatobiliary w EF DATE OF EXAM: 05/02/2024 COMPARISON: NONE CLINICAL INDICATION: Male, 63 years old with history of R10.9 Unspecified abdominal pain; TECHNIQUE: After the intravenous administration of 4.8 mCi Tc 99m Mebrofenin hepatobiliary scintigrap hy is performed. Immediate images post injection. FINDINGS: There is satisfactory initial accumulation of tracer by the liver. The gallbladder is visualized wit hin 6 minutes. The small bowel activity is noted within 8 minutes. At one hour 8 ounces of oral ens ure plus is given to mimic CCK and gallbladder ejection fraction is calculated at 92 %, in the normal range. Therefore there is no scintigraphic evidence of cystic or common bile duct obstruction to prakash ggest acute cholecystitis or gallbladder dyskinesia. IMPRESSION: Exam is within normal limits. [facility] Nikia Ozuna, , 05/02/2024 3:28 PM
== END | disposition home or self-care (01) ==
LOC: RADNMMAIN 12:59
PROVIDERS: ATTEND Internal Medicine Gastroenterology
DX: R10.9 Unspecified abdominal pain (principal)
CPT/HCPCS: 78226; A9537

== ENCOUNTER 2024-08-19 18:57 | Emergency (ER) | payer OTHER ==
--- NOTE | 2024-08-19 20:11 | ED ---
Head Injury HPI - General Chief complaint: Head Injury Stated complaint: Head injury, Head ache Time Seen by Provider: 08/19/24 20:09 Source: patient, RN notes reviewed Mode of arrival: ambulatory Limitations: no limitations - History of Present Illness Initial comments: 63-year-old male presenting for head injury 1 week ago. States he got out of bed in the middle of the night to use the bathroom when he accidentally ran into a wall, striking the top of his head on the wall. Denies loss of consciousness. Denies blood thinners. States he has had an intermittent headache since the injury. States 1 year ago he had a fall with a brain bleed where they had to transfer him to [facility] and he had surgery on his brain and a plate was put in. Denies current vision changes, nausea, vomiting. Denies any other health conditions. - Related Data Home Medications Medication Instructions Recorded Confirmed Atorvastatin [Lipitor] 10 mg PO HS 04/10/24 04/10/24 Metoprolol Tartrate [Lopressor] 25 mg PO BID 04/10/24 04/10/24 Pantoprazole Sodium [Protonix] 40 mg PO BID 04/10/24 04/10/24 Previous Rx's Medication Instructions Recorded Metoclopramide [Reglan] 10 mg PO TID PRN #15 tab 08/19/24 Allergies/Adverse reactions: Allergies Allergy/AdvReac Type Severity Reaction Status Date / Time codeine Allergy Nausea & Verified 08/19/24 19:21 Vomiting lactose Allergy Unknown Verified 08/19/24 19:21 Penicillins Allergy "woozy" Verified 08/19/24 19:21 Review of Systems ROS Statement: Those systems with pertinent positive or pertinent negative responses have been documented in the HPI. ROS Other: All systems not noted in ROS Statement are negative. Past Medical History Past Medical History: CVA/TIA, GERD/Reflux, Osteoarthritis (OA) Additional Past Medical History / Comment(s): back pain, recently diagnosed intracranial hemorrhage plate in head /2024 History of Any Multi-Drug Resistant Organisms: None Reported Past Surgical History: Back Surgery Additional Past Surgical History / Comment(s): colonoscopy, crainotomy Past Anesthesia/Blood Transfusion Reactions: No Reported Reaction Additional Past Anesthesia/Blood Transfusion Reaction / Comment(s): no blood transfusion Past Psychological History: No Psychological Hx Reported Smoking Status: Current some day smoker Past Alcohol Use History: None Reported Past Drug Use History: Marijuana - Past Family History Brother(s) Family Medical History: Cancer Additional Family Medical History / Comment(s): colon General Exam Limitations: no limitations General appearance: alert, in no apparent distress Head exam: Present: atraumatic, normocephalic, normal inspection Eye exam: Present: normal appearance, PERRL, EOMI. Absent: scleral icterus, conjunctival injection, periorbital swelling ENT exam: Present: normal exam, mucous membranes moist Neck exam: Present: normal inspection. Absent: tenderness, meningismus, lymphadenopathy Neurological exam: Present: alert, oriented X3, CN II-XII intact Psychiatric exam: Present: normal affect, normal mood Skin exam: Present: warm, dry, intact, normal color. Absent: rash Course Vital Signs 08/19/24 19:18 Temperature 99 F Pulse Rate 70 Respiratory 18 Rate Blood Pressure 136/77 O2 Sat by Pulse 98 Oximetry Medical Decision Making - Medical Decision Making Was pt. sent in by a medical professional or institution (, PA, [employer], urgent care, hospital, or penitentiary...) When possible be specific @ -No Did you speak to anyone other than the patient for history (EMS, parent, family, police, friend...)? What history was obtained from this source @ - supplemented history Did you review nursing and triage notes (agree or disagree)? Why? @ -I reviewed and agree with nursing and triage notes Were old charts reviewed (outside hosp., previous admission, EMS record, old EKG, old radiological studies, urgent care reports/EKG's, penitentiary records)? Report findings @ -No old charts were reviewed Differential Diagnosis (chest pain, altered mental status, abdominal pain women, abdominal pain men, vaginal bleeding, weakness, fever, dyspnea, syncope, headache, dizziness, GI bleed, back pain, seizure, CVA, palpatations, mental health, musculoskeletal)? @ -Differential Headache: Migraine, tension, cluster, carbon monoxide, central venous thrombosis, pension karma temporal arteritis, acute closure glaucoma, intercranial hemorrhage, mastoiditis, sinusitis, head injury, this is not meant to be an all-inclusive list. EKG interpreted by me (3pts min.). @ -None X-rays interpreted by me (1pt min.). @ -None done CT interpreted by me (1pt min.). @ -CT brain reveals no acute intracranial process U/S interpreted by me (1pt. min.). @ -None done What testing was considered but not performed or refused? (CT, X-rays, U/S, labs)? Why? @ -None What meds were considered but not given or refused? Why? @ -None Did you discuss the management of the patient with other professionals (professionals i.e. , PA, [employer], lab, RT, psych nurse, bilingual social worker, credit professional, teacher, forest officer, patient case manager)? Give summary @ -No Was smoking cessation discussed for >3mins.? @ -No Was critical care preformed (if so, how long)? @ -No Were there social determinants of health that impacted care today? How? (Homelessness, low income, unemployed, alcoholism, drug addiction, transportation, low edu. Level, literacy, decrease access to med. care, [facility], rehab)? @ -No Was there de-escalation of care discussed even if they declined (Discuss DNR or withdrawal of care, Hospice)? DNR status @ -No What co-morbidities impacted this encounter? (DM, HTN, Smoking, COPD, CAD, Cancer, CVA, ARF, Chemo, Hep., AIDS, mental health diagnosis, sleep apnea, morbid obesity)? @ -None Was patient admitted / discharged? Hospital course, mention meds given and route, prescriptions, significant lab abnormalities, going to OR and other pertinent info. @ - discharge. 63-year-old male presenting for headache x 1 week status post head injury 1 week ago. Denies loss of consciousness or blood thinners. Neurological examination is unremarkable. Patient is provided with IV fluids, Benadryl, Reglan, and Tylenol for supportive care. Lab work remarkable for mild leukocytosis of 10.9. CT brain reveals no acute intracranial process. Upon r eevaluation, patient reports significant improvement of symptoms. Discussed diagnosis of acute head injury. Advise follow-up with PCP next week for reevaluation. Appropriate return precautions and supportive care discussed. Case was discussed with my ED attending Dr. Brar. Undiagnosed new problem with uncertain prognosis? @ -No Drug Therapy requiring intensive monitoring for toxicity (Heparin, Nitro, Insulin, Cardizem)? @ -No Were any procedures done? @ -No Diagnosis/symptom? @ -Acute head injury Acute, or Chronic, or Acute on Chronic? @ -Acute Uncomplicated (without systemic symptoms) or Complicated (systemic symptoms)? @ -Uncomplicated Side effects of treatment? @ -No Exacerbation, Progression, or Severe Exacerbation? @ -No Poses a threat to life or bodily function? How? (Chest pain, USA, PA, pneumonia, PE, COPD, DKA, ARF, appy, cholecystitis, CVA, Diverticulitis, Homicidal, Delmi cidal, threat to staff... and all critical care pts) @ -No - Lab Data Result diagrams: 08/19/24 20:34 08/19/24 20:34 Lab Results 08/19/24 08/19/24 08/19/24 Range/Units 20:34 20:34 20:34 WBC 10.9 H (3.8-10.6) k/uL RBC 4.18 L (4.30-5.90) m/uL Hgb 13.1 (13.0-17.5) gm/dL Hct 40.4 (39.0-53.0) % MCV 96.6 (80.0-100.0) fL MCH 31.2 (25.0-35.0) pg MCHC 32.3 (31.0-37.0) g/dL RDW 13.5 (11.5-15.5) % Plt Count 373 (150-450) k/uL MPV 7.4 Neutrophils % 69 % Lymphocytes % 20 % Monocytes % 6 % Eosinophils % 2 % Basophils % 0 % Neutrophils # 7.5 (1.3-7.7) k/uL Lymphocytes # 2.2 (1.0-4.8) k/uL Monocytes # 0.7 (0-1.0) k/uL Eosinophils # 0.2 (0-0.7) k/uL Basophils # 0.0 (0-0.2) k/uL PT 10.3 (10.0-12.5) sec INR 0.9 (<1.2) APTT 24.5 (22.0-30.0) sec Sodium 138 (137-145) mmol/L Potassium 4.2 (3.5-5.1) mmol/L Chloride 104 (98-107) mmol/L Carbon Dioxide 27 (22-30) mmol/L Anion Gap 7 mmol/L BUN 12 (9-20) mg/dL Creatinine 1.19 (0.66-1.25) mg/dL Est GFR (CKD-EPI)AfAm 76 (>60 ml/min/1.73 sqM) Est GFR (CKD-EPI)NonAf 66 (>60 ml/min/1.73 sqM) Glucose 114 H (74-99) mg/dL Calcium 9.6 (8.4-10.2) mg/dL Total Bilirubin 0.4 (0.2-1.3) mg/dL AST 22 (17-59) U/L ALT 14 (4-49) U/L Alkaline Phosphatase 99 (38-126) U/L Total Protein 6.8 (6.3-8.2) g/dL Albumin 4.2 (3.5-5.0) g/dL Disposition Clinical Impression: Acute head injury Disposition: HOME SELF-CARE Condition: Stable Instructions (If sedation given, give patient instructions): Concussion (ED) Additional Instructions: Please return to the Emergency Department if symptoms worsen or any other concerns. Use Reglan for headache as needed. Follow-up with your PCP next week for reevaluation. Prescriptions: Metoclopramide [Reglan] 10 mg PO TID PRN #15 tab PRN Reason: Nausea Is patient prescribed a controlled substance at d/c from ED?: No Referrals: Svetlana Montalvo MD [Primary Care Provider] - 1-2 days Time of Disposition: 22:27
[2024-08-19] MEDS: SODIUM CHLORIDE 0.9% 1,000 ML IV STA (20:34)
[2024-08-19] MEDS: diphenhydrAMINE 50 MG/ML 1 ML VIAL IVP STA (20:34)
[2024-08-19] MEDS: METOCLOPRAMIDE 5 MG/ML 2 ML VIAL IVP STA (20:34)
[2024-08-19] MEDS: ACETAMINOPHEN TAB 500 MG TAB PO STA (20:34)
[2024-08-19 20:49] LABS: Basophils % (A) 0 %; Eosinophils # (A) 0.2 k/uL (0-0.7); Eosinophils % (A) 2 %; HCT 40.4 % (39.0-53.0); HGB 13.1 gm/dL (13.0-17.5); Lymphocytes # (A) 2.2 k/uL (1.0-4.8); Lymphocytes % (A) 20 %; MCH 31.2 pg (25.0-35.0); MCHC 32.3 g/dL (31.0-37.0); MCV 96.6 fL (80.0-100.0); Mean Platelet Volume 7.4; Monocytes # (A) 0.7 k/uL (0-1.0); Monocytes % (A) 6 %; Neutrophils # (A) 7.5 k/uL (1.3-7.7); Neutrophils % (A) 69 %; Platelet Count 373 k/uL (150-450); RBC 4.18 m/uL (4.30-5.90); RDW 13.5 % (11.5-15.5); WBC 10.9 k/uL (3.8-10.6)
[2024-08-19 20:58] LABS: INR 0.9 (<1.2); Partial Thromboplastin Time 24.5 sec (22.0-30.0); Prothrombin Time 10.3 sec (10.0-12.5)
[2024-08-19 21:12] LABS: ALT 14 U/L (4-49); AST 22 U/L (17-59); African American GFR (CKD) 76 (>60 ml/min/1.73 sqM); Albumin 4.2 g/dL (3.5-5.0); Alkaline Phosphatase 99 U/L (38-126); Anion Gap 7 mmol/L; Blood Urea Nitrogen 12 mg/dL (9-20); Calcium 9.6 mg/dL (8.4-10.2); Carbon Dioxide 27 mmol/L (22-30); Chloride 104 mmol/L (98-107); Glucose 114 mg/dL (74-99); Non-African American GFR(CKD) 66 (>60 ml/min/1.73 sqM); Potassium 4.2 mmol/L (3.5-5.1); Sodium 138 mmol/L (137-145); Total Bilirubin 0.4 mg/dL (0.2-1.3); Total Protein 6.8 g/dL (6.3-8.2)
--- NOTE | 2024-08-19 21:53 | CT ---
EXAMINATION TYPE: CT brain wo con DATE OF EXAM: 08/19/2024 9:42 PM COMPARISON: . CLINICAL INDICATION: Male, 63 years old with history of Head injury 1 week ago, Patient states he hit his head over a week ago and now has a headache. recently diagnosed intracranial hemorrhage plate in head aug. TECHNIQUE: Brain: Axial CT images of the brain were obtained with coronal and sagittal reformats created and rev iewed. Contrast used: None. Oral contrast used: None. CT DLP: 1229.7 mGycm, Automated exposure control for dose reduction was used. FINDINGS: Brain: Extra-axial spaces: No abnormal extra-axial fluid collections. Ventricular system: Within normal limits Cerebral parenchyma: No acute intraparenchymal hemorrhage or mass effect. The villar-white junction is well differentiated. Cerebellum: Unremarkable. Mass effect: No evidence of midline shift. Intracranial vasculature: Postsurgical changes to the middle meningeal artery with high density mater ial present bilaterally. Soft tissues: Normal. Calvarium/osseous structures: No depressed skull fracture. Craniotomy changes to the left skull. Paranasal sinuses and mastoid air cells: Mild scattered paranasal sinus disease. Visualized orbits: Orbital contents are intact. IMPRESSION: No acute intracranial process. [facility], , 08/19/2024 9:50 PM
[2024-08-19 22:42] VITALS: BP 108/65; PULSE 48; RESP 14; TEMP 98.3
== END 2024-08-19 22:33 | disposition home or self-care (01) ==
LOC: EC 18:57
DX: S09.90XA Unspecified injury of head, initial encounter (principal); F17.290 Nicotine dependence, other tobacco product, uncomplicated; Z88.5 Allergy status to narcotic agent; Z88.1 Allergy status to other antibiotic agents; Z91.011 Allergy to milk products; W22.01XA Walked into wall, initial encounter
CPT/HCPCS: 36415; 80053; 85025; 85610; 85730; 70450; 99284; 96374; 96375; 96361; J1200; J2765